=== PATIENT | female | born 1960 | race Caucasian/White ===

== ENCOUNTER 2016-07-06 14:33 | Emergency (ER) | payer MEDICARE, OTHER ==
[~2016-07-06] VITALS: Wt 60.5 kg
[~2016-07-06 14:33] MED LIST: ASPI-650 PO; CALC667C PO; CARV12.579 PO; DULO30CA47 PO; FOLI-49 PO; FOLI0.8T23 PO; GABA100C14 PO; HYDR-3504 PO; HYDR200T5 PO; IBUP-1542 PO; OMEP20CA16 PO; PRED-253 PO; SIMV20TA PO
--- NOTE | 2016-07-06 17:57 | ERA ---
ER Documentation Chief Complaint Date/Time DATE: 07/06/16 TIME: 17:57 Chief Complaint Abdominal pain HPI The patient is a 55-year-old female, presenting to the ER because of diffuse abdominal pain for 1 day. She denies similar symptoms previously, the pain is 10/10, worse with constipation. He complains of nausea and vomiting 2 today mostly mucous. She denies fever, chills, neck pain, chest pain, dyspnea. She does not smoke or drink Past medical history: Hypertension, dyslipidemia, chronic kidney disease, systemic lupus erythematosus Past surgical history: Left upper extremity AV fistula, appendectomy. He had a colonoscopy a few months ago and that was unremarkable ROS All systems reviewed and are negative except as per history of present illness. Medications Home Meds Active Scripts Polyethylene Glycol* (Miralax*) 17 Gm Powd.pack, 17 GM PO DAILY, #7 Prov:GUILLE MONTALVO MD 07/06/16 Tramadol HCl (Tramadol HCl) 50 Mg Tablet, 50 MG PO Q6 Y for PAIN, #20 TAB Prov:GUILLE MONTALVO MD 07/06/16 Reported Medications Raloxifene Hcl* (Evista*) 60 Mg Tablet, 60 MG PO DAILY, TAB 07/06/16 Ranitidine Hcl* (Ranitidine Hcl*) 300 Mg Tablet, 300 MG PO HS, #30 TAB 07/06/16 Carvedilol* (Carvedilol*) 25 Mg Tablet, 25 MG PO BID, #60 TAB 07/06/16 Gabapentin* (Gabapentin*) 300 Mg Capsule, 300 MG PO QHS, #60 CAP 07/06/16 Simvastatin* (Zocor*) 20 Mg Tablet, 20 MG PO QHS, #30 TAB 07/06/16 Calcium Acetate* (Calcium Acetate*) 667 Mg Capsule, 667 MG PO WITH MEALS, #90 CAP 07/06/16 Folic Acid* (Folic Acid*) 1 Mg Tablet, 1 MG PO DAILY, TAB 07/06/16 Duloxetine Hcl* (Duloxetine Hcl*) 30 Mg Capsule.dr, 30 MG PO BID, #30 CAP 07/06/16 Aspirin* (Aspirin* EC) 81 Mg Tablet.dr, 81 MG PO DAILY, TAB 07/06/16 Omeprazole* (Omeprazole*) 20 Mg Capsule.dr, 20 MG PO BID, #60 CAP 07/06/16 Prednisone* (Prednisone*) 5 Mg Tab, 5 MG PO DAILY, TAB 07/06/16 Multivit/Ca Carb/B Cmplx/Fa* (Teodora-Sarah*) 1 Tab Tab, 1 TAB PO DAILY, TAB 07/06/16 Hydroxychloroquine Sulfate* (Hydroxychloroquine Sulfate*) 200 Mg Tablet, 300 MG PO DAILY, TAB 07/06/16 Hydrocodone/Acetaminophen (Olga 10-325 Tablet) 1 Each Tablet, 2 TAB PO QID Y for PAIN, TAB 07/06/16 Discontinued Reported Medications Calcium Acetate* (Calcium Acetate*) 667 Mg Capsule, 667 MG PO TID 08/08/15 Ibuprofen* (Ibuprofen*) 600 Mg Tablet, 600 MG PO BID Y for PAIN, #60 08/08/15 Omeprazole* (Omeprazole*) 20 Mg Capsule.dr, 20 MG PO BID 08/08/15 Hydrocodone Bit-Acetaminophen (Hydrocodone-APAP) 10-325MG Tablet, 1 TAB PO Q6 Y for PAIN 08/08/15 Duloxetine Hcl* (Duloxetine Hcl*) 30 Mg Capsule.dr, 30 MG PO DAILY, #30 CAP 08/07/15 Carvedilol* (Carvedilol*) 12.5 Mg Tablet, 12.5 MG PO BID, #60 TAB 08/07/15 Simvastatin* (Zocor*) 20 Mg Tablet, 20 MG PO QHS, #30 TAB 08/07/15 Hydroxychloroquine Sulfate* (Plaquenil*) 200 Mg Tab, 250 MG PO DAILY, TAB 08/07/15 Gabapentin* (Gabapentin*) 100 Mg Capsule, 200 MG PO TID, #180 CAP 08/07/15 Folic Acid/Vitamin B Comp W-C* (Nephro-Sarah Tablet*) 0.8 Mg Tablet, 0.8 MG PO DAILY 05/17/11 Folic Acid* (Folic Acid*) 1 Mg Tablet, 2 MG PO DAILY 05/17/11 Aspirin (Aspirin) 81 Mg Tablet, 81 MG PO DAILY 05/17/11 Prednisone (Prednisone) 5 Mg Tablet, 5 MG PO DAILY 05/17/11 Allergies Allergies: Coded Allergies: No Known Allergy (Unverified , 07/06/16) PMhx/Soc History of Surgery: Yes (FISTULA LEFT ARM, APPY) Anesthesia Reaction: No Hx Neurological Disorder: No Hx Respiratory Disorders: No Hx Cardiac Disorders: Yes (HTN, HIGH CHOL) Hx Psychiatric Problems: No Hx Miscellaneous Medical Probl: No Hx Alcohol Use: No Hx Substance Use: No Hx Tobacco Use: Yes (4 CIGS /DAY) Physical Exam Vitals Vital Signs Date Time Temp Pulse Resp B/P Pulse Ox O2 Delivery O2 Flow Rate FiO2 07/06/16 20:00 95 25 144/70 95 Room Air 07/06/16 14:36 98.8 73 20 101/52 98 Physical Exam Const: No acute distress. Head: Atraumatic. Eyes: Normal Conjunctiva. ENT: Normal External Ears, Nose and Mouth. Neck: Full range of motion. No meningismus. Resp: Clear to auscultation bilaterally. Cardio: Regular rate and rhythm, no murmurs. Abd: Soft, non distended, normal bowel sounds, diffuse and vague abdominal tenderness, no rigidity, rebound, CVA tenderness Skin: No petechiae or rashes. Back: No midline or flank tenderness. Ext: No cyanosis, or edema. Neur: Awake and alert. No focal deficit Psych: Normal Mood and Affect. Result Diagram: 07/06/16182907/06/161829 Results 24 hrs Laboratory Tests Test 07/06/16 18:30 07/06/16 19:40 Alanine Aminotransferase (ALT/SGPT) 16IU/L Albumin 3.6g/dl Albumin/Globulin Ratio 1.09 Alkaline Phosphatase 55IU/L Anion Gap 21 Aspartate Amino Transf (AST/SGOT) 26IU/L Basophils # 0.010^3/ul Basophils % 0.3% Blood Morphology Comment Blood Urea Nitrogen 32mg/dl Calcium Level 9.9mg/dl Carbon Dioxide Level 28mmol/L Chloride Level 89mmol/L Creatinine 6.84mg/dl Direct Bilirubin 0.00mg/dl Eosinophils # 0.010^3/ul Eosinophils % 0.0% Globulin 3.30g/dl Glucose Level 93mg/dl Hematocrit 36.1% Hemoglobin 12.0g/dl Indirect Bilirubin 0.4mg/dl Lipase 34U/L Lymphocytes # 0.810^3/ul Lymphocytes % 8.3% Mean Corpuscular Hemoglobin 34.4pg Mean Corpuscular Hemoglobin Concent 33.2g/dl Mean Corpuscular Volume 103.7fl Mean Platelet Volume 8.8fl Monocytes # 1.010^3/ul Monocytes % 10.4% Neutrophils # 7.510^3/ul Neutrophils % 81.0% Nucleated Red Blood Cells # 0.010^3/ul Nucleated Red Blood Cells % 0.0/100WBC Platelet Count 9210^3/UL Potassium Level 4.1mmol/L Red Blood Count 3.4810^6/ul Red Cell Distribution Width 14.7% Sodium Level 134mmol/L Total Bilirubin 0.4mg/dl Total Protein 6.9g/dl White Blood Count 9.210^3/ul Bedside Urine Blood Trace-intact Bedside Urine Glucose (UA) Negative Bedside Urine Ketones (LAB) Negative Bedside Urine Leukocyte Esterase (L Negative Bedside Urine Nitrite (LAB) Negative Bedside Urine Protein (LAB) 2+ Bedside Urine pH (LAB) 8.5 Current Medications Medications (Trade) Dose Ordered Sig/Tereza Route PRN Reason Start Time Stop Time Status Last Admin Dose Admin Morphine Sulfate (morphine) 2 mg ONCE STAT IV 07/06/16 18:09 07/06/16 18:11 DC 07/06/16 19:11 Ondansetron HCl (Zofran Inj) 4 mg ONCE STAT IV 07/06/16 18:09 07/06/16 18:11 DC 07/06/16 19:11 Morphine Sulfate (morphine) 2 mg ONCE ONCE IV 07/06/16 20:00 07/06/16 20:01 DC 07/06/16 20:01 Bisacodyl (Dulcolax Supp) 10 mg ONCE ONCE IA 07/06/16 20:00 07/06/16 20:04 DC 07/06/16 20:13 Sodium Biphosphate/ Sodium Phosphate (Fleet Enema) 133 ml ONCE ONCE IA 07/06/16 20:00 07/06/16 20:04 DC 07/06/16 20:13 Procedures/[place] [id number] Radiology Main Line: [phone] DIAGNOSTIC IMAGING REPORT Patient: GENI MUELLER : 1960 Age: 55 Sex: F MR #: [id number] DOS: 07/06/16 1808 Ordering MD: GUILLE MONTALVO MD Location: E/R Room/Bed: PROCEDURE: CT abdomen and pelvis without IV contrast. CLINICAL INDICATION: Abdominal pain TECHNIQUE: CT scan of the abdomen and pelvis without contrast was performed on the [employer] volumetric [address] scanner. The patient was scanned without intravenous contrast. Coronal and sagittal reformatted images were obtained from the axial source images. The CTDI vol is 9.58 mGy and the DLP is 501.63 mGy -cm. COMPARISON: None. FINDINGS: CT abdomen: Mild atelectasis in the lingula is seen. The remaining lung bases are clear. The heart size is mildly enlarged and is without pericardial thickening or effusion. The liver is normal in size and density and is without focal mass or intrahepatic biliary dilatation. A simple cyst is seen in the left hepatic lobe measuring 10 mm in size. An ill-defined low density lesion is seen in the anterior aspect of the spleen measuring 10 mm. The spleen is normal in size and remainder of the spleen is homogeneous in density. The stomach is grossly unremarkable. The pancreas as visualized is normal. The gallbladder and biliary tree are unremarkable and there is no evidence for common bile duct dilatation. The adrenal glands are symmetric and normal. The [place] kidneys are in stage with bilateral renal cysts. No renal calculus or obstructive uropathy or mass lesion is seen. The aorta is of normal in caliber with atherosclerotic calcifications. There is no retroperitoneal lymphadenopathy. The vickey hepatis region is clear. Sigmoid diverticulosis is seen without evidence of diverticulitis. Irregular bowel wall thickening is seen distal descending colon with stranding in the adjacent mesentery. High-density material is seen within the adjacent mesenteric stranding. The small and remainder of the large bowel and mesentery , as visualized, are otherwise unremarkable. CT pelvis: The pelvic organs are normal. The pelvic sidewalls and inguinal regions are clear. No pelvic mass, lymphadenopathy, or free fluid is seen. No acute inflammation is seen. The urinary bladder is within normal limits. The surrounding osseous structures are unremarkable. No osteolytic or osteoblastic lesion is detected. Diffuse osteopenia is seen. IMPRESSION: 1. Irregular wall thickening of the distal descending colon with stranding in the adjacent mesentery, the findings of which are worrisome for a colon cancer. The possibility of colitis cannot be completely excluded. Correlation with colonoscopy is suggested. 2. Small nonspecific low density lesion in the spleen. In the setting of irregular wall thickening of the distal descending colon, the possibility of a splenic metastasis cannot be excluded. 3. Simple hepatic cyst. 4. Sigmoid diverticulosis. RPTAT: HPNM Results were discussed with Guille Montalvo at 07/06/2016 7:20:43 PM Sd Brown, Physician Date Time Electronically viewed and signed by Sd Brown Physician on 07/06/2016 19 :22 / CC: GUILLE MONTALVO MD MEDICAL MAKING DECISION: The patient is a 55-year-old female, presenting to the ER because of abdominal pain of unclear etiology. He was treated with morphine 2 mg IV 2 for pain, Zofran 4 mg IV 2 for nausea, Dulcolax suppository and Fleet enema with good response. The differential diagnoses considered include but are not limited to GI malignancy, cholelithiasis, cholecystitis, cystitis , pancreatitis, hepatitis, gastritis, peptic ulcer disease, gastric ulcer, appendicitis, diverticulitis, cholangitis, choledocholithiasis, partial small bowel obstruction. Departure Diagnosis: Primary Impression: Abdominal pain Additional Impression: Constipation Condition: Good Comments She was discharged with MiraLAX and Ultram and advised to follow-up with a equipment maintenance tech to rule out colon cancer immediately I discussed the findings with the patient. I advised the patient to follow-up with the primary physician in about 1-2 days, sooner if needed and return if any concern. GUILLE MONTALVO MD Jul 06, 2016 17:57
[2016-07-06] MEDS ORDERED: morphine 2 MG INJ IV STA (18:09)
[2016-07-06] MEDS ORDERED: ONDANSETRON 4 MG INJ IV STA (18:09)
--- NOTE | 2016-07-06 19:23 | RADRPT ---
PROCEDURE: CT abdomen and pelvis without IV contrast. CLINICAL INDICATION: Abdominal pain TECHNIQUE: CT scan of the abdomen and pelvis without contrast was performed on the [employer] volumetric [address] scanner. The patient was scanned without intravenous contrast. Coronal and sagittal refo rmatted images were obtained from the axial source images. The CTDI vol is 9.58 mGy and the DLP is 5 01.63 mGy-cm. COMPARISON: None. FINDINGS: CT abdomen: Mild atelectasis in the lingula is seen. The remaining lung bases are clear. The heart size is mil dly enlarged and is without pericardial thickening or effusion. The liver is normal in size and density and is without focal mass or intrahepatic biliary dilatation . A simple cyst is seen in the left hepatic lobe measuring 10 mm in size. An ill-defined low densit y lesion is seen in the anterior aspect of the spleen measuring 10 mm. The spleen is normal in size and remainder of the spleen is homogeneous in density. The stomach is grossly unremarkable. The pa ncreas as visualized is normal. The gallbladder and biliary tree are unremarkable and there is no e vidence for common bile duct dilatation. The adrenal glands are symmetric and normal. The [place] k idneys are in stage with bilateral renal cysts. No renal calculus or obstructive uropathy or mass lesion is seen. The aorta is of normal in caliber with atherosclerotic calcifications. There is no retroperitoneal lymphadenopathy. The vickey hepatis region is clear. Sigmoid diverticulosis is seen without evidenc e of diverticulitis. Irregular bowel wall thickening is seen distal descending colon with stranding in the adjacent mesentery. High-density material is seen within the adjacent mesenteric stranding. The small and remainder of the large bowel and mesentery, as visualized, are otherwise unremarkabl e. CT pelvis: The pelvic organs are normal. The pelvic sidewalls and inguinal regions are clear. No pelvic mass, lymphadenopathy, or free fluid is seen. No acute inflammation is seen. The urinary bladder is wit hin normal limits. The surrounding osseous structures are unremarkable. No osteolytic or osteoblastic lesion is detect ed. Diffuse osteopenia is seen. IMPRESSION: 1. Irregular wall thickening of the distal descending colon with stranding in the adjacent mesenter y, the findings of which are worrisome for a colon cancer. The possibility of colitis cannot be com pletely excluded. Correlation with colonoscopy is suggested. 2. Small nonspecific low density lesion in the spleen. In the setting of irregular wall thickening of the distal descending colon, the possibility of a splenic metastasis cannot be excluded. 3. Simple hepatic cyst. 4. Sigmoid diverticulosis. RPTAT: HPNM Results were discussed with Guille Shaw at 07/06/2016 7:20:43 PM Physician Mary Date Time Electronically viewed and signed by Sd Brown Physician on 07/06/2016 19:22 /
[2016-07-06 19:27] LABS: BASOPHILS % 0.3 % (0.0-2.0); HEMATOCRIT 36.1 % (37.0-47.0); LYMPHOCYTES # 0.8 10^3/ul (0.8-2.9); LYMPHOCYTES % 8.3 % (15.0-51.0); MEAN CORPUSCULAR HEMOGLOBIN 34.4 pg (29.0-33.0); MEAN CORPUSCULAR HGB CONC 33.2 g/dl (32.0-37.0); MEAN CORPUSCULAR VOLUME 103.7 fl (82.0-101.0); MEAN PLATELET VOLUME 8.8 fl (7.4-10.4); MONOCYTES % 10.4 % (0.0-11.0); NEUTROPHIL # 7.5 10^3/ul (1.6-7.5); PLATELET COUNT 92 10^3/UL (140-440); RED BLOOD COUNT 3.48 10^6/ul (4.20-5.40); RED CELL DISTRIBUTION WIDTH 14.7 % (11.5-14.5); UNCORRECTED WBC 9.2 10^3/ul (4.8-10.8); WHITE BLOOD COUNT 9.2 10^3/ul (4.8-10.8)
[2016-07-06 19:28] LABS: ALBUMIN 3.6 g/dl (3.3-4.9); CONDITION 1; LH ANALYZER COMMENTS 1
[2016-07-06 19:29] LABS: POTASSIUM 4.1 mmol/L (3.5-5.1)
[2016-07-06 19:30] LABS: CREATININE 6.84 mg/dl (0.44-1.00)
[2016-07-06 19:31] LABS: ALBUMIN/GLOBULIN RATIO 1.09; BILIRUBIN,INDIRECT 0.4 mg/dl (0-1.1); BILIRUBIN,TOTAL 0.4 mg/dl (0.2-1.3); CALCIUM 9.9 mg/dl (8.4-10.2); TOTAL PROTEIN 6.9 g/dl (6.1-8.1)
[2016-07-06] MEDS ORDERED: HYDR-902 PO (19:35)
[2016-07-06] MEDS ORDERED: NEPH PO (19:36)
[2016-07-06] MEDS ORDERED: HYDR200T39 PO (19:36)
[2016-07-06] MEDS ORDERED: PRED5 PO (19:37)
[2016-07-06] MEDS ORDERED: ASPI-664 PO (19:37)
[2016-07-06] MEDS ORDERED: OMEP20CA16 PO (19:37)
[2016-07-06] MEDS ORDERED: FOLI-49 PO (19:38)
[2016-07-06] MEDS ORDERED: DULO30CA47 PO (19:38)
[2016-07-06] MEDS ORDERED: CALC667C PO (19:39)
[2016-07-06 19:40] LABS: URINE BLOOD (Dip) POC Trace-intact (NEGATIVE)
[2016-07-06] MEDS ORDERED: GABA300C16 PO (19:40)
[2016-07-06] MEDS ORDERED: SIMV20TA PO (19:40)
[2016-07-06] MEDS ORDERED: CARV25TA79 PO (19:41)
[2016-07-06] MEDS ORDERED: RALO60TA12 PO (19:41)
[2016-07-06] MEDS ORDERED: RANI300T PO (19:41)
[2016-07-06] MEDS ORDERED: morphine 2 MG INJ IV ONE ×2 (20:00→21:30)
[2016-07-06] MEDS ORDERED: NA PHOSPHATE/BIPHOS 133 ML ENEMA PR ONE (20:00)
[2016-07-06] MEDS ORDERED: BISACODYL 10 MG SUPP PR ONE (20:00)
[2016-07-06] MEDS ORDERED: TRAM50TA2 PO (20:11)
[2016-07-06] MEDS ORDERED: POLY17PO6 PO (20:11)
--- NOTE | 2016-07-06 21:27 | RADRPT ---
PROCEDURE: XR Chest. CLINICAL INDICATION: Cough. TECHNIQUE: Single frontal view of the chest was obtained COMPARISON: 08/12/2015. FINDINGS: Cardiomegaly. Mild left lung base atelectasis versus airspace disease. Right lung is clear. There is no pleural effusion or pneumothorax. New total right shoulder arthroplasty IMPRESSION: Mild left lung base atelectasis versus airspace disease. RPTAT: [facility]U Physician Luis Date Time Electronically viewed and signed by Kane Garcia Physician on 07/06/2016 21:27 RS/
[2016-07-06 21:31] VITALS: BP 123/67; PULSE 84; RESP 16
== END 2016-07-06 21:38 | disposition home or self-care (01) ==
LOC: E/R 14:33
DX: R10.84 Generalized abdominal pain (principal); K59.00 Constipation, unspecified; R11.2 Nausea with vomiting, unspecified; I12.9 Hypertensive chronic kidney disease with stage 1 through stage 4 chronic kidney disease, or unspecified chronic kidney disease; N18.9 Chronic kidney disease, unspecified; F17.210 Nicotine dependence, cigarettes, uncomplicated; R40.2142 Coma scale, eyes open, spontaneous, at arrival to emergency department; R40.2252 Coma scale, best verbal response, oriented, at arrival to emergency department; R40.2362 Coma scale, best motor response, obeys commands, at arrival to emergency department; Z79.82 Long term (current) use of aspirin; Z99.2 Dependence on renal dialysis
CPT/HCPCS: 36415; 71010; 74176; 80053; 81003; 83690; 85025; 96374; 96375; 96376; 99285; J2270; J2405

== ENCOUNTER 2016-07-08 11:34 | Inpatient (IN) | payer MEDICARE, OTHER ==
[~2016-07-08] VITALS: Ht 143.1 cm; Wt 60.0 kg
[~2016-07-08 11:34] MED LIST changes: -ASPI-650 PO; +ASPI-664 PO; -CARV12.579 PO; +CARV25TA79 PO; -FOLI0.8T23 PO; -GABA100C14 PO; +GABA300C16 PO; -HYDR-3504 PO; +HYDR-902 PO; +HYDR200T39 PO; -HYDR200T5 PO; -IBUP-1542 PO; +NEPH PO; +POLY17PO6 PO; -PRED-253 PO; +PRED5 PO; +RALO60TA12 PO; +RANI300T PO; +TRAM50TA2 PO
[2016-07-08] MEDS ORDERED: ONDANSETRON 4 MG INJ IV STA (12:35)
[2016-07-08] MEDS ORDERED: SOD CHLORIDE 0.9% 1,000 ML IV STA (12:35)
[2016-07-08] MEDS ORDERED: HYDROmorphONE 1 MG/ML SYG IV STA ×3 (12:35→17:27)
[2016-07-08 13:05] LABS: BASOPHILS % 0.1 % (0.0-2.0); EOSINOPHILS % 0.2 % (0.0-7.0); HEMOGLOBIN 10.8 g/dl (12.0-16.0); LYMPHOCYTES # 0.6 10^3/ul (0.8-2.9); LYMPHOCYTES % 5.3 % (15.0-51.0); MEAN CORPUSCULAR HEMOGLOBIN 34.8 pg (29.0-33.0); MEAN CORPUSCULAR HGB CONC 33.8 g/dl (32.0-37.0); MEAN CORPUSCULAR VOLUME 103.2 fl (82.0-101.0); MEAN PLATELET VOLUME 11.8 fl (7.4-10.4); MONOCYTE # 1.1 10^3/ul (0.3-0.9); MONOCYTES % 10.4 % (0.0-11.0); NEUTROPHILS % 83.3 % (39.0-77.0); PLATELET COUNT 105 10^3/UL (140-415); RED CELL DISTRIBUTION WIDTH 13.8 % (11.5-14.5); WHITE BLOOD COUNT 10.8 10^3/ul (4.8-10.8)
[2016-07-08 13:32] LABS: ALBUMIN 3.6 g/dl (3.3-4.9); POTASSIUM 4.7 mmol/L (3.5-5.1)
[2016-07-08 13:34] LABS: BILIRUBIN,INDIRECT 0.1 mg/dl (0-1.1); BILIRUBIN,TOTAL 0.1 mg/dl (0.2-1.3); CREATININE 9.18 mg/dl (0.44-1.00)
[2016-07-08 13:35] LABS: ALBUMIN/GLOBULIN RATIO 1.02; TOTAL PROTEIN 7.1 g/dl (6.1-8.1)
[2016-07-08 13:36] LABS: CALCIUM 9.1 mg/dl (8.4-10.2)
[2016-07-08] MEDS ORDERED: IOHEXOL 300MG/ML 150 ML BTL ONE (14:05)
[2016-07-08] MEDS ORDERED: SOD CHLORIDE 0.9% 100 ML ONE (14:05)
--- NOTE | 2016-07-08 15:50 | RADRPT ---
PROCEDURE: CT Abdomen and Pelvis with contrast. CLINICAL INDICATION: Left flank pain TECHNIQUE: CT of the abdomen and pelvis was performed on a multi-detector scanner following the un complicated IV administration of 100 cc of Omnipaque 300. Coronal and sagittal images were reformat esperanza from the axial data set. One or more of the following dose reduction techniques were used: auto mated exposure control, adjustment of the mA and/or kV according to patient size, use of iterative reconstruction technique. CTDI = 9.17 mGy. DLP = 503.34 mGy-cm. COMPARISON: CT, 07/06/2016 FINDINGS: CT abdomen: The lung bases are clear. There is stable mild to moderate cardiomegaly, without pericardial effusi on. Coronary arterial calcifications are noted. Liver demonstrates a benign cyst. Gallbladder is distended. No radiodense gallstone or pericholecystic inflammation is identified. Small hypoenhanc ing foci are again noted in the spleen, statistically most likely to be benign hemangiomas. Biliary tree, pancreas and adrenal glands are unremarkable. Bilateral kidneys are atrophic, and demonstrat e benign cysts. No urolithiasis or obstructive uropathy is identified. Small hiatal hernia is note d. The stomach is otherwise grossly unremarkable. There is no abdominal aortic aneurysm or dissection. Aortic vascular calcifications are present. T here is no retroperitoneal lymphadenopathy. The vickey hepatis region is clear. CT pelvis: Again noted is significant wall thickening and inflammation involving a relatively short segment of distal descending colon - findings have increased in severity when compared to the prior CT. Also a gain noted are unusual branching hyperdensities within the adjacent colonic mesentery - these are of uncertain etiology and may possibly represent thrombosed mesenteric vessels. Overall, findings are concerning for focal colonic ischemia. No evidence of pneumatosis or portal venous gas is identifi ed at this time. There is no evidence of bowel obstruction, perforation or abscess. Colonic divert iculosis is seen, without gross evidence for diverticulitis. There is no appendicitis. Urinary tre dder, uterus and adnexa are grossly unremarkable. No pelvic mass, free fluid or lymphadenopathy is identified. The surrounding osseous structures are remarkable for degenerative spondylosis of the spine. No ost eolytic or osteoblastic lesion is detected. IMPRESSION: 1. Findings concerning for focal colonic ischemia involving the distal descending colon and possibl e thrombosis of adjacent mesenteric vessels, as discussed above. Pericolonic inflammation has incre ased in severity when compared to the prior CT. Underlying neoplasm is possible, though thought to be less likely. No evidence of bowel perforation or pneumatosis is seen at this time. 2. There is stable moderate cardiomegaly. Coronary arterial and aortoiliac atherosclerotic calcifi cations are present. 3. Colonic diverticulosis is seen, without gross evidence to indicate diverticulitis. 4. Bilateral kidneys are atrophic. No urolithiasis or obstructive uropathy is identified. A call report was made to Cristina Machado on 07/08/2016 3:42:18 PM. RPTAT: QQ .Khadar Cardenas MD, MD Date Time Electronically viewed and signed by .Khadar Cardenas MD, on 07/08/2016 15:50 .R/
[2016-07-08] MEDS ORDERED: ACETAMINOPHEN 325 MG TAB PO PRN (16:30)
[2016-07-08] MEDS ORDERED: DIPHENHYDRAMINE 50 MG INJ IV ONE (16:30)
[2016-07-08] MEDS ORDERED: SOD CHLORIDE 0.9% 1,000 ML IV SCH (16:30)
[2016-07-08] MEDS ORDERED: ONDANSETRON 4 MG INJ IV PRN ×2 (16:30→17:00)
--- NOTE | 2016-07-08 16:40 | ERA ---
ER Documentation Chief Complaint Date/Time DATE: 07/08/16 TIME: 16:37 Chief Complaint Complains of abdominal pain x 3 days HPI This a 55-year-old female who was seen here 2 days ago for left lower quadrant pain and had a CT scan that showed some distal descending colon wall thickening with some strandy mesentery. She was sent home. The patient was seen by her primary care doctor today for increasing pain. No vomiting diarrhea fever. Patient has significant pain in the left lower quadrant described as sharp without radiation. No hematuria no dysuria. Patient was sent for reevaluation and probable admission for diverticulitis that she had diverticulosis on CT scan. Patient underwent colonoscopy in February 2016 demonstrating only diverticulosis ROS All systems reviewed and are negative except as per history of present illness. Medications Home Meds Active Scripts Polyethylene Glycol* (Miralax*) 17 Gm Powd.pack, 17 GM PO DAILY, #7 Prov:YFN MONTALVO MD 07/06/16 Tramadol HCl (Tramadol HCl) 50 Mg Tablet, 50 MG PO Q6 Y for PAIN, #20 TAB Prov:YFN MONTALVO MD 07/06/16 Reported Medications Raloxifene Hcl* (Evista*) 60 Mg Tablet, 60 MG PO DAILY, TAB 07/06/16 Ranitidine Hcl* (Ranitidine Hcl*) 300 Mg Tablet, 300 MG PO HS, #30 TAB 07/06/16 Carvedilol* (Carvedilol*) 25 Mg Tablet, 25 MG PO BID, #60 TAB 07/06/16 Gabapentin* (Gabapentin*) 300 Mg Capsule, 300 MG PO QHS, #60 CAP 07/06/16 Simvastatin* (Zocor*) 20 Mg Tablet, 20 MG PO QHS, #30 TAB 07/06/16 Calcium Acetate* (Calcium Acetate*) 667 Mg Capsule, 667 MG PO WITH MEALS, #90 CAP 07/06/16 Folic Acid* (Folic Acid*) 1 Mg Tablet, 1 MG PO DAILY, TAB 07/06/16 Duloxetine Hcl* (Duloxetine Hcl*) 30 Mg Capsule.dr, 30 MG PO BID, #30 CAP 07/06/16 Aspirin* (Aspirin* EC) 81 Mg Tablet.dr, 81 MG PO DAILY, TAB 07/06/16 Omeprazole* (Omeprazole*) 20 Mg Capsule.dr, 20 MG PO BID, #60 CAP 07/06/16 Prednisone* (Prednisone*) 5 Mg Tab, 5 MG PO DAILY, TAB 07/06/16 Multivit/Ca Carb/B Cmplx/Fa* (Teodora-Sarah*) 1 Tab Tab, 1 TAB PO DAILY, TAB 07/06/16 Hydroxychloroquine Sulfate* (Hydroxychloroquine Sulfate*) 200 Mg Tablet, 300 MG PO DAILY, TAB 07/06/16 Hydrocodone/Acetaminophen ([place] 10-325 Tablet) 1 Each Tablet, 2 TAB PO QID Y for PAIN, TAB 07/06/16 Discontinued Reported Medications Calcium Acetate* (Calcium Acetate*) 667 Mg Capsule, 667 MG PO TID 08/08/15 Ibuprofen* (Ibuprofen*) 600 Mg Tablet, 600 MG PO BID Y for PAIN, #60 08/08/15 Omeprazole* (Omeprazole*) 20 Mg Capsule.dr, 20 MG PO BID 08/08/15 Hydrocodone Bit-Acetaminophen (Hydrocodone-APAP) 10-325MG Tablet, 1 TAB PO Q6 Y for PAIN 08/08/15 Duloxetine Hcl* (Duloxetine Hcl*) 30 Mg Capsule.dr, 30 MG PO DAILY, #30 CAP 08/07/15 Carvedilol* (Carvedilol*) 12.5 Mg Tablet, 12.5 MG PO BID, #60 TAB 08/07/15 Simvastatin* (Zocor*) 20 Mg Tablet, 20 MG PO QHS, #30 TAB 08/07/15 Hydroxychloroquine Sulfate* (Plaquenil*) 200 Mg Tab, 250 MG PO DAILY, TAB 08/07/15 Gabapentin* (Gabapentin*) 100 Mg Capsule, 200 MG PO TID, #180 CAP 08/07/15 Folic Acid/Vitamin B Comp W-C* (Nephro-Sarah Tablet*) 0.8 Mg Tablet, 0.8 MG PO DAILY 05/17/11 Folic Acid* (Folic Acid*) 1 Mg Tablet, 2 MG PO DAILY 05/17/11 Aspirin (Aspirin) 81 Mg Tablet, 81 MG PO DAILY 05/17/11 Prednisone (Prednisone) 5 Mg Tablet, 5 MG PO DAILY 05/17/11 Allergies Allergies: Coded Allergies: No Known Allergy (Unverified , 07/08/16) PMhx/Soc History of Surgery: Yes (FISTULA LEFT ARM, APPY) Anesthesia Reaction: No Hx Neurological Disorder: No Hx Respiratory Disorders: No Hx Cardiac Disorders: Yes (HTN, HIGH CHOL) Hx Psychiatric Problems: No Hx Miscellaneous Medical Probl: Yes (renal failure dialysis (M,W,F)) Hx Alcohol Use: No Hx Substance Use: No Hx Tobacco Use: No (quit 15 years ago) Smoking Status: Former smoker FmHx Family History: No coronary disease Physical Exam Vitals Vital Signs Date Time Temp Pulse Resp B/P Pulse Ox O2 Delivery O2 Flow Rate FiO2 07/08/16 14:34 98.2 67 22 93/44 Room Air 07/08/16 12:21 97.9 58 20 84/43 94 Room Air 07/08/16 11:36 61 20 84/54 97 Physical Exam Const: Well-developed, well-nourished Head: Atraumatic, normocephalic Eyes: Normal Conjunctiva, PERRLA, EOMI, normal sclera, no nystagmus ENT: Normal External Ears, Nose and Mouth, moist mucus membranes. Neck: Full range of motion. No meningismus, no lymphadenopathy. Resp: Clear to auscultation bilaterally, no wheezing, rhonchi, rales Cardio: Regular rate and rhythm, no murmurs, S1 S2 present Abd: Soft, moderate to severe left lower quadrant tenderness, non distended. Normal bowel sounds, no guarding or rebound, no pulsitile abdominal masses or bruits Skin: No petechiae or rashes, no ecchymosis , no maculopapular rash Back: No midline or flank tenderness Ext: No cyanosis, or edema, FROM x 4, normal inspection, neurovascularly intact x 4 Neur: Awake and alert, STR 5/5 x 4, sensation intact x 4, no focal findings, cerebellum intact Psych: Normal Mood and Affect Result Diagram: 07/08/16 1245 07/08/16 1245 Results 24 hrs Laboratory Tests Test 07/08/16 12:45 Alanine Aminotransferase (ALT/SGPT) 17IU/L Albumin 3.6g/dl Albumin/Globulin Ratio 1.02 Alkaline Phosphatase 62IU/L Anion Gap 24 Aspartate Amino Transf (AST/SGOT) 37IU/L Basophils # 0.010^3/ul Basophils % 0.1% Blood Urea Nitrogen 54mg/dl Calcium Level 9.1mg/dl Carbon Dioxide Level 24mmol/L Chloride Level 88mmol/L Creatinine 9.18mg/dl Direct Bilirubin 0.00mg/dl Eosinophils # 0.010^3/ul Eosinophils % 0.2% Globulin 3.50g/dl Glucose Level 79mg/dl Hematocrit 32.0% Hemoglobin 10.8g/dl Indirect Bilirubin 0.1mg/dl Lymphocytes # 0.610^3/ul Lymphocytes % 5.3% Mean Corpuscular Hemoglobin 34.8pg Mean Corpuscular Hemoglobin Concent 33.8g/dl Mean Corpuscular Volume 103.2fl Mean Platelet Volume 11.8fl Monocytes # 1.110^3/ul Monocytes % 10.4% Neutrophils # 9.010^3/ul Neutrophils % 83.3% Nucleated Red Blood Cells # 0.010^3/ul Nucleated Red Blood Cells % 0.0/100WBC Platelet Count 64847^3/UL Potassium Level 4.7mmol/L Red Blood Count 3.1010^6/ul Red Cell Distribution Width 13.8% Sodium Level 131mmol/L Total Bilirubin 0.1mg/dl Total Protein 7.1g/dl White Blood Count 10.810^3/ul Current Medications Medications (Trade) Dose Ordered Sig/Tereza Route PRN Reason Start Time Stop Time Status Last Admin Dose Admin Sodium Chloride (NS) 1,000 ml @ 1,000 mls/hr Q1H STAT IV 07/08/16 12:35 07/08/16 13:34 DC 07/08/16 12:48 Hydromorphone HCl (Dilaudid) 1 mg ONCE STAT IV 07/08/16 12:35 07/08/16 12:36 DC 07/08/16 12:48 Ondansetron HCl (Zofran Inj) 4 mg ONCE STAT IV 07/08/16 12:35 07/08/16 12:36 DC 07/08/16 12:48 IV Flush 10 ml 10 ml STK-MED ONCE .ROUTE 07/08/16 14:05 07/08/16 14:06 DC Sodium Chloride (NS) 100 ml @ ud STK-MED ONCE .ROUTE 07/08/16 14:05 07/08/16 14:06 DC Iohexol (Omnipaque 300mg/ ml) 150 ml STK-MED ONCE .ROUTE 07/08/16 14:05 2/9/17 14:06 DC Diphenhydramine HCl (Benadryl) 25 mg ONCE ONCE IV 07/08/16 16:30 07/08/16 16:31 DC 07/08/16 16:25 Hydromorphone HCl (Dilaudid) 1 mg ONCE STAT IV 07/08/16 16:10 07/08/16 16:11 DC 07/08/16 16:25 Procedures/MDM PROCEDURE: CT Abdomen and Pelvis with contrast. CLINICAL INDICATION: Left flank pain TECHNIQUE: CT of the abdomen and pelvis was performed on a multi-detector scanner following the uncomplicated IV administration of 100 cc of Omnipaque 300. Coronal and sagittal images were reformatted from the axial data set. One or more of the following dose reduction techniques were used: automated exposure control, adjustment of the mA and/or kV according to patient size, use of iterative reconstruction technique. CTDI = 9.17 mGy. DLP = 503.34 mGy- cm. COMPARISON: CT, 07/06/2016 FINDINGS: CT abdomen: The lung bases are clear. There is stable mild to moderate cardiomegaly, without pericardial effusion. Coronary arterial calcifications are noted. Liver demonstrates a benign cyst. Gallbladder is distended. No radiodense gallstone or pericholecystic inflammation is identified. Small hypoenhancing foci are again noted in the spleen, statistically most likely to be benign hemangiomas. Biliary tree, pancreas and adrenal glands are unremarkable. Bilateral kidneys are atrophic, and demonstrate benign cysts. No urolithiasis or obstructive uropathy is identified. Small hiatal hernia is noted. The stomach is otherwise grossly unremarkable. There is no abdominal aortic aneurysm or dissection. Aortic vascular calcifications are present. There is no retroperitoneal lymphadenopathy. The vickey hepatis region is clear. CT pelvis: Again noted is significant wall thickening and inflammation involving a relatively short segment of distal descending colon - findings have increased in severity when compared to the prior CT. Also again noted are unusual branching hyperdensities within the adjacent colonic mesentery - these are of uncertain etiology and may possibly represent thrombosed mesenteric vessels. Overall, findings are concerning for focal colonic ischemia. No evidence of pneumatosis or portal venous gas is identified at this time. There is no evidence of bowel obstruction, perforation or abscess. Colonic diverticulosis is seen, without gross evidence for diverticulitis. There is no appendicitis. Urinary bladder, uterus and adnexa are grossly unremarkable. No pelvic mass, free fluid or lymphadenopathy is identified. The surrounding osseous structures are remarkable for degenerative spondylosis of the spine. No osteolytic or osteoblastic lesion is detected. IMPRESSION: 1. Findings concerning for focal colonic ischemia involving the distal descending colon and possible thrombosis of adjacent mesenteric vessels, as discussed above. Pericolonic inflammation has increased in severity when compared to the prior CT. Underlying neoplasm is possible, though thought to be less likely. No evidence of bowel perforation or pneumatosis is seen at this time. 2. There is stable moderate cardiomegaly. Coronary arterial and aortoiliac atherosclerotic calcifications are present. 3. Colonic diverticulosis is seen, without gross evidence to indicate diverticulitis. 4. Bilateral kidneys are atrophic. No urolithiasis or obstructive uropathy is identified. A call report was made to Cristina Machado on 07/08/2016 3:42:18 PM. RPTAT: QQ .Khadar Cardenas MD, MD Date Time Electronically viewed and signed by .Khadar Cardenas MD, MD on 07/08/2016 15: 50 .R/ CC: CRISTINA JOSEPH DO Patient likely has ischemic colitis in the segment of the distal descending colon. Will treat with heparin 5000 units subcu, Invanz 1 g IV per Spoke with GI Dr. brett [facility] general surgery Departure Diagnosis: Primary Impression: Ischemic colitis Condition: Stable CRISTINA JOSEPH DO Jul 08, 2016 16:40
[2016-07-08] MEDS ORDERED: BISACODYL (EC) 5 MG TAB PO PRN (17:00)
[2016-07-08] MEDS ORDERED: HEPARIN 5,000 UNIT/0.5 ML SYG SC ONE (17:00)
[2016-07-08] MEDS ORDERED: DOCUSATE SODIUM 100 MG CAP PO PRN (17:00)
[2016-07-08] MEDS ORDERED: VANCOMYCIN 750 MG in SOD CHLORIDE 0.9% 150 ML IVPB ONE (17:00)
[2016-07-08] MEDS ORDERED: morphine 2 MG INJ IV PRN (17:00)
[2016-07-08] MEDS ORDERED: ERTAPENEM SODIUM 1 GM in SOD CHLORIDE 0.9% 100 ML IVPB ONE (17:00)
[2016-07-08] MEDS ORDERED: NACL 0.9% 3 ML SYG IV SCH (17:00)
--- NOTE | 2016-07-08 17:29 | HP ---
DATE OF ADMISSION: 07/08/2016 REASON FOR ADMISSION: Abdominal pain. HISTORY OF PRESENT ILLNESS: This is a 55-year-old female with end-stage renal disease due to hypert ension and lupus, currently dialyzing every Tuesday, Tuesday, and Tuesday at the [facility]. She states that for the past week she has been gradually feeling poorly with poor p.o. intake and le thargy. Earlier this week after her Tuesday's dialysis, she noted some increasing abdominal pain, went to the [facility] ER where she was noted to have unremarkable laboratories, but a CT scan of the abdomen was done which showed some thickening of the wall of the left colon. She was given pain medications and discharged. Due to her persistent abdominal pain gradually increasing in severity, she therefore, saw me in the office today. She clearly looked ill, was anorectic with increasing left lower quadrant abdominal p ain, and therefore, was referred back to the emergency room for planned admission. In the ER today, she again, was afebrile. Blood pressure initially was 84/40 (she does run low). S he was not tachycardic. Her examination confirmed tenderness in the left lower quadrant, and therefore, a repeat CT scan of the abdomen was done. The Findings on the CAT scan that were concerning for focal colonic ischemia involving the distal de scending colon, with pericolonic inflammation increased in severity when compared to the CT of just 2 days earlier. It should be noted that she did see Dr. Levin in February 2016 and underwent an unremarkable colono scopy at that time. She is now being admitted because of the concern of colonic ischemia. Of note, her white count today is normal at 10.8, hematocrit is 32, and serum chemistries are notabl e for entirely normal liver function tests. PAST MEDICAL HISTORY: Please see full dictated problem list. ALLERGIES: NONE. HABITS: Tobacco: None. Alcohol: None. MEDICATIONS 1. Plaquenil 200 mg a day. 2. Omeprazole 20 mg a day. 3. Prednisone 5 mg a day. 4. Nephro-Sarah 1 daily. 5. Duloxetine 30 mg daily. 6. Aspirin 81 mg daily. 7. Gabapentin 300 mg at bedtime. 8. PhosLo 1 to 2 tabs t.i.d. with meals. 9. Carvedilol 25 mg p.o. b.i.d. REVIEW OF SYSTEMS: As per HPI. PHYSICAL EXAMINATION GENERAL: An ill-appearing woman in no acute distress. VITAL SIGNS: She was afebrile, blood pressure 100/50, heart rate 72 and regular, respirations are 1 2 and unlabored. SKIN: No rash. HEENT: Head normocephalic, atraumatic. Eyes, pupils are equal, round, reactive. Extraocular movem ents are full. Sclerae are anicteric. Pharynx, no lesions. NECK: JVP, is not distended. No adenopathy or thyromegaly. Carotids are 2+. BACK: No CVAT. LUNGS: Clear. HEART: S1, S2, with a II/ systolic murmur. ABDOMEN: Soft. She is quite tender in the left lower quadrant with rebound to deep palpation. The abdomen is soft and not rigid. EXTREMITIES: No cyanosis, clubbing or edema. Well-functioning AV fistula in the left upper extremi ty. LABORATORY DATA: Sodium 131, potassium 4.7, chloride 88, bicarbonate 24, BUN 54, creatinine 9.18, g lucose 79, calcium 9.1, total bilirubin 0.1, AST 37, ALT 17, alkaline phosphatase 62, total protein 7.1, albumin 3.6. White count 10.8; hemoglobin 10.8; hematocrit 32; platelet count 105,000, COMPUTED TOMOGRAPHY SCAN: Is as noted. PROBLEM LIST 1. Left lower quadrant abdominal pain consistent with focal colonic ischemia. 2. Status post normal colonoscopy in February 2016. 3. Mild thrombocytopenia, chronic. 4. End-stage renal disease, maintained on outpatient hemodialysis every Tuesday, Tuesday and . 5. Hypertension, currently well-controlled. 6. Depression, well-controlled on medication. 7. Lupus, maintained on low-dose prednisone and Plaquenil. 8. Hyperlipidemia. RECOMMENDATIONS 1. Admit to hospital. 2. GI consultation with Dr. Levin. 3. General surgery consultation, as well. 4. Broad-spectrum antibiotics. 5. Resume current medication. 6. Arrange for dialysis tomorrow, it is currently not urgent. 7. Further recommendations pending response to above. Dictated By: MARSHA LOPEZ MD, MM/ALEX Conf#: [id number] [facility]#: [id number]
[2016-07-08 17:53] LABS: INR 1.26; PROTIME 15.9 Sec (12.2-14.2); PT RATIO 1.2
[2016-07-08 17:54] LABS: PARTIAL THROMBOPLASTIN TIME 31.2 Sec (25.0-35.0)
[2016-07-08] MEDS: CALCIUM ACETATE 667 MG CAP PO SCH (18:00)
[2016-07-08 18:28] VITALS: TEMP 97.8
[2016-07-08 20:19] VITALS: BP 132/61; RESP 20
[2016-07-08] MEDS: DEXTROSE 5%-0.45% NACL 1,000 ML IV SCH (20:38)
[2016-07-08] MEDS: HYDROmorphONE 1 MG/ML SYG IV PRN (20:42)
[2016-07-08] MEDS ORDERED: NON-FORMULARY/PATIENT OWN MED (Omeprazole* 20 MG) PO SCH (21:00)
[2016-07-08] MEDS: PIPER-TAZO 2.25 GM (PMX) 50 ML IVPB SCH (21:55)
[2016-07-08] MEDS: DULOXETINE 30 MG CAP DR PO SCH (22:03)
[2016-07-08] MEDS: ATORVASTATIN 10 MG TAB PO SCH (22:03)
[2016-07-08] MEDS: GABAPENTIN 300 MG CAP PO SCH (22:03)
[2016-07-08 23:02] VITALS: Ht 143.1 cm; Wt 60.0 kg
[2016-07-09] VITALS (10 sets, daily range): BP systolic 94–130; BP diastolic 55–87; PULSE 62–72; RESP 18–19
[2016-07-09] MEDS: HYDROmorphONE 1 MG/ML SYG IV PRN ×3 (02:04→12:36)
[2016-07-09] MEDS ORDERED: SOD CHLORIDE 0.9% 100 ML ONE (02:07)
[2016-07-09] MEDS: ACETAMINOPHEN 325 MG TAB PO PRN ×2 (02:07→12:39)
[2016-07-09] MEDS ORDERED: IODIXANOL LOCM 100 ML BTL ONE (02:07)
[2016-07-09] MEDS: PANTOPRAZOLE 40 MG INJ IV SCH (05:39)
[2016-07-09] MEDS: PIPER-TAZO 2.25 GM (PMX) 50 ML IVPB SCH ×3 (05:39→22:02)
[2016-07-09] MEDS: DEXTROSE 5%-0.45% NACL 1,000 ML IV SCH ×2 (05:39→12:40)
[2016-07-09 06:18] LABS: ADD SCAN DIFF NO
[2016-07-09 06:33] LABS: ABNORMAL IP MESSAGE 1; BASOPHILS % 0.1 % (0.0-2.0); EOSINOPHILS % 0.2 % (0.0-7.0); HEMATOCRIT 29.8 % (37.0-47.0); HEMOGLOBIN 9.6 g/dl (12.0-16.0); LYMPHOCYTES # 0.5 10^3/ul (0.8-2.9); LYMPHOCYTES % 4.3 % (15.0-51.0); MEAN CORPUSCULAR HEMOGLOBIN 33.9 pg (29.0-33.0); MEAN CORPUSCULAR HGB CONC 32.2 g/dl (32.0-37.0); MEAN CORPUSCULAR VOLUME 105.3 fl (82.0-101.0); MEAN PLATELET VOLUME 11.4 fl (7.4-10.4); MONOCYTE # 1.5 10^3/ul (0.3-0.9); MONOCYTES % 13.9 % (0.0-11.0); NEUTROPHIL # 8.7 10^3/ul (1.6-7.5); NEUTROPHILS % 80.7 % (39.0-77.0); PLATELET COUNT 110 10^3/UL (140-415); RED BLOOD COUNT 2.83 10^6/ul (4.20-5.40); RED CELL DISTRIBUTION WIDTH 13.9 % (11.5-14.5); WHITE BLOOD COUNT 10.8 10^3/ul (4.8-10.8)
[2016-07-09 06:47] LABS: ALBUMIN 2.8 g/dl (3.3-4.9)
[2016-07-09 06:48] LABS: POTASSIUM 4.8 mmol/L (3.5-5.1)
[2016-07-09 06:50] LABS: ALBUMIN/GLOBULIN RATIO 0.96; CREATININE 10.08 mg/dl (0.44-1.00); TOTAL PROTEIN 5.7 g/dl (6.1-8.1)
--- NOTE | 2016-07-09 06:50 | RADRPT ---
PROCEDURE: XR Chest. CLINICAL INDICATION: Shortness of breath TECHNIQUE: Portable single view of the chest COMPARISON: 07/06 FINDINGS: Cardiomegaly and mild pulmonary vascular congestion is again seen. Reduced lung volumes with slight ly increased interstitial markings but no focal alveolar infiltrate or pleural effusion. Right shou lder hardware is again seen. IMPRESSION: No significant interval change. Mild interstitial prominence and top normal pulmonary vascularity. Cardiomegaly. RPTAT: HLBE Trayn Sherman Physician Date Time Electronically viewed and signed by Taryn Sherman Physician on 07/09/2016 06:50 LE/
[2016-07-09 06:51] LABS: CALCIUM 8.4 mg/dl (8.4-10.2); MAGNESIUM 2.2 mg/dl (1.7-2.5); PHOSPHORUS 5.9 mg/dl (2.5-4.9)
[2016-07-09] MEDS: CALCIUM ACETATE 667 MG CAP PO SCH ×3 (08:15→17:28)
[2016-07-09] MEDS: FOLIC ACID 1 MG TAB PO SCH (08:36)
[2016-07-09] MEDS: POLYETHYLENE GLYCOL 17 GM PACKET PO SCH (08:36)
[2016-07-09] MEDS: DULOXETINE 30 MG CAP DR PO SCH ×2 (08:36→20:35)
[2016-07-09] MEDS: MULTIVIT/CA CARB/B CMPLX/FA TAB PO SCH (08:36)
[2016-07-09] MEDS: predniSONE 5 MG TAB PO SCH (08:36)
[2016-07-09] MEDS: HYDROXYCHLOROQUINE 200 MG TAB PO SCH (09:00)
--- NOTE | 2016-07-09 10:10 | RADRPT ---
PROCEDURE: CT angiogram of the abdomen and pelvis with 3-D reconstructions CLINICAL INDICATION: MESENTERIC ISCHEMIA TECHNIQUE: CT angiogram of the abdomen and pelvis was performed on a multislice CT scanner . The patient was scanned after administration of intravenous contrast. Sagittal and coronal reformatted images were obtained from the axial source images. 3D MIP reformatted images were also created from the axial source images. DLP 712.96 mGycm CTDI vol 57.51, 10.70 mGy COMPARISON: CT abdomen/pelvis from 07/08/2016 FINDINGS: ANGIOGRAM FINDINGS: There is no acute dissection or aneurysm of the abdominal aorta. There is mild to moderate narrowing at the origin of the celiac axis to approximately 4 mm with post stenotic dilatation up to 7 mm. There is mild narrowing at the origin of the SMA to approximately 5 mm with poststenotic dilatation up to 7 mm. There is moderate narrowing at the origin of the SANKET. There is severe atherosclerotic narrowing at the origin of bilateral renal arteries. Common, internal and external iliac arteries are patent bilaterally. The [employer] and proximal SFA and profunda arteries are patent bilaterally. ANCILLARY FINDINGS: Mild to moderate cardiomegaly is again noted. 1.4 cm simple cyst is again noted in segment 4A of the liver as well as an adjacent sub-centimeter h ypodensity which is too small to characterize, but likely represents a cyst. There is a 1.1 cm cystic lesion in the spleen. There is a small hiatal hernia. Bilateral kidneys are markedly atrophic. Again noted is significant wall thickening and surrounding inflammation of a short segment of distal descending / proximal sigmoid colon. Multiple branches of the SANKET are noted to be patent through t his segment of bowel. Postsurgical changes are also noted in this segment. There is mild pelvic fr ee fluid. IMPRESSION: Mild to moderate narrowing at the origins of the mesenteric vessels without evidence of severe narro wing, as above. Significant inflammation of a short segment of distal descending / proximal sigmoid colon is again n oted with multiple small patent branches of the SANKET noted to traverse this region of inflammation. C atheter angiography is considered the gold standard for diagnosis although narrowing of the mesenter ic vessels is considered less likely as the cause of mesenteric ischemia given the current CTA findi ngs. The patient is also noted to have cardiomegaly. Heart failure can also be considered in the di fferential etiology of mesenteric ischemia. Clinical correlation is recommended. Severe narrowing is noted at the origins of bilateral renal arteries. Correlation with blood pressu re for renovascular hypertension is recommended. Physician Rey Date Time Electronically viewed and signed by Matthias Dickinson Physician on 07/09/2016 10:10 RA/
--- NOTE | 2016-07-09 13:33 | CONS ---
Date/Time of Note Date/Time of Note DATE: 07/09/16 TIME: 13:18 Assessment/Plan Assessment/Plan Problems: (1) Ischemic colitis Comment: no leukocytosis or lactic acidemia..... does have fever, and is on abx... CTA of the abdomen shows NO thrombosis or critical vascular stenosis of the SMA or SANKET branches (2) ESRD (end stage renal disease) on dialysis Comment: q MWF... for dialysis today (3) Lupus Comment: quiet, on meds (4) HTN (hypertension) Comment: runs low typically... no wories here (5) Fever Comment: blood cxs done... on broad abx... no leukocytosis or high lactate, tho Consultation Date/Type/Reason Admit Date/Time Jul 08, 2016 at 16:36 Initial Consult Date Type of Consultation: neph 24 HR Interval Summary Free Text/Dictation about the same... getting IV Dilaudid prn LLQ pain Exam/Review of Systems Vital Signs Vitals Vital Signs Date Time Temp Pulse Resp B/P Pulse Ox O2 Delivery O2 Flow Rate FiO2 07/09/16 07:54 98.8 69 19 109/56 98 07/08/16 18:28 Room Air Intake and Output 07/08/16 07/08/16 07/09/16 15:00 23:00 07:00 Intake Total 50 ml 650 ml Balance 50 ml 650 ml Exam Constitutional: alert, oriented Neck: supple Respiratory: clear to auscultation Cardiovascular: regular rate and rhythm Gastrointestinal: bowel sounds, tender (tender LLQ... no abram...NABS) Extremities: normal pulses (fxn LUE AVG) Results Result Diagram: 07/09/16 0520 07/09/16 0520 Results 24 hrs Laboratory Tests Test 07/08/16 16:55 07/08/16 20:42 07/09/16 05:20 Activated Partial Thromboplast Time 31.2 INR International Normalized Ratio 1.26 Prothrombin Time 15.9 H Prothrombin Time Ratio 1.2 Carcinoembryonic Antigen 3.4 Lactic Acid Level 0.5 Alanine Aminotransferase (ALT/SGPT) 19 Albumin 2.8 L Albumin/Globulin Ratio 0.96 Alkaline Phosphatase 114 # Anion Gap 19 H Aspartate Amino Transf (AST/SGOT) 27 Basophils # 0.0 Basophils % 0.1 Blood Urea Nitrogen 56 H Calcium Level 8.4 Carbon Dioxide Level 23 Chloride Level 92 L Creatinine 10.08 H Direct Bilirubin 0.00 Eosinophils # 0.0 Eosinophils % 0.2 Globulin 2.90 Glucose Level 74 Hematocrit 29.8 L Hemoglobin 9.6 L Hemoglobin A1c 5.1 Indirect Bilirubin 0.0 Lymphocytes # 0.5 L Lymphocytes % 4.3 L Magnesium Level 2.2 Mean Corpuscular Hemoglobin 33.9 H Mean Corpuscular Hemoglobin Concent 32.2 Mean Corpuscular Volume 105.3 H Mean Platelet Volume 11.4 H Monocytes # 1.5 H Monocytes % 13.9 H Neutrophils # 8.7 H Neutrophils % 80.7 H Nucleated Red Blood Cells # 0.0 Nucleated Red Blood Cells % 0.0 Phosphorus Level 5.9 H Platelet Count 110 L Potassium Level 4.8 Red Blood Count 2.83 L Red Cell Distribution Width 13.9 Sodium Level 129 L Total Bilirubin 0.0 L Total Protein 5.7 #L White Blood Count 10.8 Medications Medications Current Medications Ondansetron HCl (Zofran Inj) 4 mg Q6H PRN IV NAUSEA AND/OR VOMITING; Start 07/08 at 17:00 Acetaminophen (Tylenol Tab) 650 mg Q6H PRN PO PAIN LEVEL 1-3 OR FEVER Last administered on 07/09/16 12:39; Admin Dose 650 MG; Start 07/08/16 at 17:00 Docusate Sodium (Colace) 100 mg Q12H PRN PO CONSTIPATION; Start 07/08/16 at 17: 00 Bisacodyl (Dulcolax) 5 mg DAILY PRN PO CONSTIPATION; Start 07/08/16 at 17:00 Pantoprazole 40 mg 40 mg DAILY@06 IV Last administered on 07/09/16 05:39; Admin Dose 40 MG; Start 07/09/16 at 06:00 Piperacillin Sod/ Tazobactam Sod (Zosyn 2.25gm/ 50ml (Pmx)) 50 ml @ 100 mls/hr Q8 IVPB Last administered on 07/09/16 05:39; Admin Dose 100 MLS/HR; Start 07/08 at 22:00 Carvedilol (Coreg) 25 mg BID PO ; Start 07/08/16 at 21:00 Duloxetine HCl (Cymbalta) 30 mg BID PO Last administered on 07/09/16 08:36; Admin Dose 30 MG; Start 07/08/16 at 21:00 Folic Acid (Folic Acid) 1 mg DAILY PO Last administered on 07/09/16 08:36; Admin Dose 1 MG; Start 07/09/16 at 09:00 Gabapentin (Neurontin) 300 mg QHS PO Last administered on 07/08/16 22:03; Admin Dose 300 MG; Start 07/08/16 at 21:00 Hydroxychloroquine Sulfate (Plaquenil) 300 mg DAILY PO ; Start 07/09/16 at 09:00 Multivit/Ca Carb/ B Cmplx/FA/Prenat (Teodora-Sarah) 1 tab DAILY PO Last administered on 07/09/16 08:36; Admin Dose 1 TAB; Start 07/09/16 at 09:00 Polyethylene Glycol (Miralax) 17 gm DAILY PO Last administered on 07/09/16 08: 36; Admin Dose 17 GM; Start 07/09/16 at 09:00 Prednisone (Prednisone) 5 mg DAILY PO Last administered on 07/09/16 08:36; Admin Dose 5 MG; Start 07/09/16 at 09:00 Atorvastatin Calcium 10 mg 10 mg DAILY@21 PO Last administered on 07/08/16 22: 03; Admin Dose 10 MG; Start 07/08/16 at 21:00 Dextrose/Sodium Chloride (D5-1/2ns) 1,000 ml @ 80 mls/hr [id number] IV Last administered on 07/09/16 12:40; Admin Dose 80 MLS/HR; Start 07/08/16 at 17:30 Hydromorphone HCl (Dilaudid) 1 mg Q2 PRN IV SEVERE PAIN LEVEL 7-10 Last administered on 07/09/16 12:36; Admin Dose 1 MG; Start 07/08/16 at 20:00 MARSHA LOPEZ MD Jul 09, 2016 13:33
[2016-07-09] MEDS: HYDROCODONE/APAP (5/325) TAB PO PRN (16:38)
[2016-07-09] MEDS ORDERED: HYDROCODONE/APAP (5/325) TAB PO PRN (17:00)
--- NOTE | 2016-07-09 17:19 | RADRPT ---
Vent Rate: 68 bpm RR Interval: 0 msec MS Interval: 162 msec QRS Duration: 154 msec QT Interval: 448 msec QTC Interval: 476 msec P-R-T [place]: 39 - -27 - 13 degrees Normal sinus rhythm Right bundle branch block Moderate voltage criteria for LVH, may be normal variant Cannot rule out Septal infarct , age undetermined Lateral infarct , age undetermined Abnormal ECG Electronically Signed By: Joaquin Langford [id number]
--- NOTE | 2016-07-09 18:23 | CONS ---
DATE OF ADMISSION: 07/08/2016 DATE OF CONSULTATION: 07/09/2016 VASCULAR SURGERY CONSULTATION Dear Doctors: Ms. Maryanne Garnica is a 55-year-old female known to our vascular surgery service second adelita to her history of end-stage renal disease in which she had underwent a left upper extremity sharon riovenous fistula revision. Patient currently has been tolerating her dialysis sessions via her lef t upper extremity fistula on Tuesday, Tuesday, and Tuesday. She had recently developed aneurysmal c hanges in which we were considering for possible revision in the near future as it has become a bit bothersome and causing discomfort for her. At the moment, the patient was admitted to [facility] secondary to having significant abdominal pain that she has had for a number of days now. Upon CT scan of the abdomen and pelvis was identified the patient had pericolonic inflammatio n in the descending colon. There was also some suggestion for possible thrombosis of the mesenteric vessels. Subsequently, we had ordered a CT angiography to better delineate these findings and it w as identified the patient actually has a patent celiac/SMA/SANKET mesenteric vessels. No acute occlusi on has been identified thus far. Patient has left lower quadrant pain, otherwise, denies shortness of breath, chest pain, nausea, vomiting, fever or chills. She denies lower extremity claudication o r rest pain-like symptoms. She denies left upper extremity claudication or rest pain-like symptoms. REVIEW OF SYSTEMS: A 12-point review performed and negative except what is mentioned in the HPI. PAST MEDICAL HISTORY: Entails morbidly obese, end-stage renal disease, hypertension, hyperlipidemia , end-stage renal disease and borderline diabetic. PAST SURGICAL HISTORY: Multiple chest wall catheters and left upper extremity fistula. FAMILY HISTORY: Positive for diabetes and coronary artery disease. SOCIAL HISTORY: Denies current alcohol, tobacco or illicit drug use. PHYSICAL EXAMINATION: GENERAL: Alert and oriented x3, no apparent distress at rest. HEENT: Normocephalic, atraumatic. PERRLA. EOMI. Mucosa moist. NECK: Supple. No carotid bruit. PULMONARY: Clear to auscultation bilaterally. No crackles. CARDIOVASCULAR: S1, S2 present. There is a systolic murmur. ABDOMEN: Soft, left lower quadrant tenderness. No peritonitis. Bowel sounds positive. EXTREMITIES: Lower extremities: Palpable femoral pulse, nonpalpable pedal pulse. Motor, sensory in tact. Cap refill 3 seconds. Large legs. Left upper extremity: Palpable brachial pulse. Motor, s ensory intact. Cap refill 2 seconds. Surgical scar in the upper arm well healed. Fistula with bru it and thrill present. ASSESSMENT AND PLAN: 1. Mesenteric ischemia: It seems that the patient's left colon findings with pericolonic inflammat ion unlikely related to mesenteric ischemia. It seems that the patient may have other underlying is sues in which would follow up with our general surgery colleagues. I am concerned the patient may h ave underlying carcinoma that would need to be investigated. Would recommend a colonoscopy to be do ne. I did speak with the family. They mentioned her last colonoscopy was back in February and she harrell d some polyps that were removed; however, they do not recall the biopsy results. There could be a c ontribution of localized thrombosed mesenteric vessels; however, based on our findings and patency o f her celiac, SMA and partial of her SANKET there is no further vascular intervention that would be nee ded. If her symptoms do not improve, she may require a colectomy of that segment. 2. Optimize vascular status (BP meds, diet, nutrition, exercise, sugar control, antiplatelets). 3. End-stage renal disease: At the moment, the patient's left upper extremity AV fistula is functi onal and no further intervention is needed. However, in the near future we will plan to resolve her aneurysmal changes of the fistula which can be done as an outpatient. 4. Discussed findings, plan and management with the patient with a certified family practice medical doctor and jimena. Thank you for allowing us to partake in the care of your patient. Please call with any questions. Dictated By: HEENA HENNING/ALEX Conf#: [id number] DID#: [id number]
[2016-07-09] MEDS: DIPHENHYDRAMINE 25 MG CAP PO PRN (20:35)
[2016-07-09] MEDS: ATORVASTATIN 10 MG TAB PO SCH (20:35)
[2016-07-09] MEDS: GABAPENTIN 300 MG CAP PO SCH (20:35)
[2016-07-09] MEDS: HYDROCODONE/APAP (10/325) TAB PO PRN (22:16)
[2016-07-10] MEDS: DEXTROSE 5%-0.45% NACL 1,000 ML IV SCH ×3 (01:20→13:11)
[2016-07-10] MEDS: PANTOPRAZOLE 40 MG INJ IV SCH (05:40)
[2016-07-10] MEDS: PIPER-TAZO 2.25 GM (PMX) 50 ML IVPB SCH ×3 (05:40→21:36)
[2016-07-10 06:06] LABS: ABNORMAL IP MESSAGE 1; ADD SCAN DIFF NO; EOSINOPHILS % 0.1 % (0.0-7.0); HEMATOCRIT 26.5 % (37.0-47.0); HEMOGLOBIN 8.4 g/dl (12.0-16.0); LYMPHOCYTES # 0.5 10^3/ul (0.8-2.9); LYMPHOCYTES % 5.6 % (15.0-51.0); MEAN CORPUSCULAR HEMOGLOBIN 33.3 pg (29.0-33.0); MEAN CORPUSCULAR HGB CONC 31.7 g/dl (32.0-37.0); MEAN CORPUSCULAR VOLUME 105.2 fl (82.0-101.0); MONOCYTE # 1.2 10^3/ul (0.3-0.9); MONOCYTES % 13.2 % (0.0-11.0); NEUTROPHIL # 7.5 10^3/ul (1.6-7.5); NEUTROPHILS % 80.2 % (39.0-77.0); PLATELET COUNT 108 10^3/UL (140-415); RED BLOOD COUNT 2.52 10^6/ul (4.20-5.40); RED CELL DISTRIBUTION WIDTH 14.1 % (11.5-14.5); WHITE BLOOD COUNT 9.4 10^3/ul (4.8-10.8)
[2016-07-10 06:22] LABS: ALBUMIN 2.4 g/dl (3.3-4.9)
[2016-07-10 06:25] LABS: ALBUMIN/GLOBULIN RATIO 0.88; BILIRUBIN,INDIRECT 0.1 mg/dl (0-1.1); BILIRUBIN,TOTAL 0.1 mg/dl (0.2-1.3); CREATININE 5.35 mg/dl (0.44-1.00); TOTAL PROTEIN 5.1 g/dl (6.1-8.1)
[2016-07-10 06:26] LABS: CALCIUM 8.1 mg/dl (8.4-10.2)
[2016-07-10] MEDS: HYDROCODONE/APAP (10/325) TAB PO PRN (07:56)
[2016-07-10] MEDS: ACETAMINOPHEN 325 MG TAB PO PRN (07:56)
[2016-07-10 08:02] VITALS: BP 114/54; RESP 24
[2016-07-10] MEDS: CALCIUM ACETATE 667 MG CAP PO SCH ×3 (08:15→17:49)
--- NOTE | 2016-07-10 08:24 | PN ---
Date/Time of Note Date/Time of Note DATE: 07/10/16 TIME: 08:21 Assessment/Plan Lines/Catheters [facility] Saline Lock Assessment/Plan Chief Complaint/Hosp Course -Mesenteric ischemia: It seems that the patient's left colon findings with pericolonic inflammation unlikely related to mesenteric ischemia. The patient may have other underlying issues in which we will follow up with our general surgery colleagues. I am concerned the patient may have underlying carcinoma that would need to be investigated. Would recommend a colonoscopy to be done. I did speak with the family. They mentioned her last colonoscopy was back in February and she had some polyps that were removed; however, they do not recall the biopsy results. There could also be a contribution of localized thrombosed mesenteric vessels; however, based on our findings and patency of her celiac, SMA and partial of her SANKET there is no further vascular intervention that would be needed. If her symptoms do not improve, she may require a colectomy of that segment. -Optimize vascular status (BP meds, diet, nutrition, exercise, sugar control, antiplatelets). -End-stage renal disease: At the moment, the patient's left upper extremity AV fistula is functional and no further intervention is needed. However, in the near future we will plan to resolve her aneurysmal changes of the fistula which can be done as an outpatient. -Discussed findings, plan and management with the patient with a certified furniture servicer and she understands. -Thank you for allowing us to partake in the care of your patient. Please call with any questions. Problems: Subjective 24 Hr Interval Summary no new vascular changes overnight, tolerated HD well Exam/Review of Systems Vital Signs Vitals Vital Signs Date Time Temp Pulse Resp B/P Pulse Ox O2 Delivery O2 Flow Rate FiO2 07/10/16 08:02 102.7 84 24 114/54 91 07/08/16 18:28 Room Air Intake and Output 07/09/16 07/09/16 07/10/16 15:00 23:00 07:00 Intake Total 600 ml 1100 ml 960 ml Output Total 1000 ml 0 ml Balance 600 ml 100 ml 960 ml Exam Free Text/Dictation GENERAL: Alert and oriented x3, PULMONARY: Clear to auscultation bilaterally CARDIOVASCULAR: S1, S2 present ABDOMEN: Soft, left lower quadrant tenderness 3-4/10. No peritonitis. Bowel sounds positive. EXTREMITIES: Lower extremities: Palpable femoral pulse, nonpalpable pedal pulse. Motor, sensory intact. Cap refill 3 seconds. Large legs. Left upper extremity: Palpable brachial pulse. Motor, sensory intact. Cap refill 2 seconds. Surgical scar in the upper arm well healed. Fistula with bruit and thrill present. aneurysmal Results Result Diagram: 07/10/16 0528 07/10/16 0528 HEENA SOUSA MD Jul 10, 2016 08:23
[2016-07-10] MEDS: POLYETHYLENE GLYCOL 17 GM PACKET PO SCH (08:30)
[2016-07-10] MEDS: predniSONE 5 MG TAB PO SCH (08:30)
[2016-07-10] MEDS: MULTIVIT/CA CARB/B CMPLX/FA TAB PO SCH (08:30)
[2016-07-10] MEDS: DULOXETINE 30 MG CAP DR PO SCH ×2 (08:30→20:34)
[2016-07-10] MEDS: FOLIC ACID 1 MG TAB PO SCH (08:30)
[2016-07-10] MEDS: HYDROXYCHLOROQUINE 200 MG TAB PO SCH (08:31)
--- NOTE | 2016-07-10 11:10 | CONS ---
Date/Time of Note Date/Time of Note DATE: 07/10/16 TIME: 11:02 Assessment/Plan Assessment/Plan Chief Complaint/Hosp Course 1. ESRD , on maintenance hemodialysis M W F 2. LLQ abdominal pain , vascular surgery does not think this is ischemic bowel . 3. fever , BC done yesterday no growth thus far , she on antibiotics . 4. continue antibiotics , analgesia and surgical evaluation , labs in am . Problems: Consultation Date/Type/Reason Admit Date/Time Jul 08, 2016 at 16:36 Initial Consult Date Type of Consultation: neph 24 HR Interval Summary Free Text/Dictation she says that she is having less abdominal pain ; however she does have a fever . Exam/Review of Systems Vital Signs Vitals Vital Signs Date Time Temp Pulse Resp B/P Pulse Ox O2 Delivery O2 Flow Rate FiO2 07/10/16 08:02 102.7 84 24 114/54 91 07/08/16 18:28 Room Air Intake and Output 07/09/16 07/09/16 07/10/16 15:00 23:00 07:00 Intake Total 600 ml 1100 ml 960 ml Output Total 1000 ml 0 ml Balance 600 ml 100 ml 960 ml Exam Constitutional: alert, oriented Respiratory: clear to auscultation Cardiovascular: regular rate and rhythm Gastrointestinal: soft, tender Musculoskeletal: nl extremities to inspection Results Result Diagram: 07/10/1652707/10/16527 Results 24 hrs Laboratory Tests Test 07/10/16 05:28 Alanine Aminotransferase (ALT/SGPT) 20 Albumin 2.4 L Albumin/Globulin Ratio 0.88 Alkaline Phosphatase 58 Anion Gap 17 H Aspartate Amino Transf (AST/SGOT) 20 Basophils # 0.0 Basophils % 0.0 Blood Urea Nitrogen 21 #H Calcium Level 8.1 L Carbon Dioxide Level 27 Chloride Level 99 Creatinine 5.35 #H Direct Bilirubin 0.00 Eosinophils # 0.0 Eosinophils % 0.1 Globulin 2.70 Glucose Level 277 #H Hematocrit 26.5 L Hemoglobin 8.4 L Indirect Bilirubin 0.1 Lactic Acid Level 0.7 Lymphocytes # 0.5 L Lymphocytes % 5.6 L Mean Corpuscular Hemoglobin 33.3 H Mean Corpuscular Hemoglobin Concent 31.7 L Mean Corpuscular Volume 105.2 H Mean Platelet Volume 11.0 H Monocytes # 1.2 H Monocytes % 13.2 H Neutrophils # 7.5 Neutrophils % 80.2 H Nucleated Red Blood Cells # 0.0 Nucleated Red Blood Cells % 0.0 Platelet Count 108 L Potassium Level 4.0 Red Blood Count 2.52 L Red Cell Distribution Width 14.1 Sodium Level 139 Total Bilirubin 0.1 L Total Protein 5.1 L White Blood Count 9.4 Medications Medications Current Medications Ondansetron HCl (Zofran Inj) 4 mg Q6H PRN IV NAUSEA AND/OR VOMITING; Start 07/08 at 17:00 Acetaminophen (Tylenol Tab) 650 mg Q6H PRN PO PAIN LEVEL 1-3 OR FEVER Last administered on 07/10/16 07:56; Admin Dose 650 MG; Start 07/08/16 at 17:00 Docusate Sodium (Colace) 100 mg Q12H PRN PO CONSTIPATION; Start 07/08/16 at 17: 00 Bisacodyl (Dulcolax) 5 mg DAILY PRN PO CONSTIPATION; Start 07/08/16 at 17:00 Pantoprazole 40 mg 40 mg DAILY@06 IV Last administered on 07/10/16 05:40; Admin Dose 40 MG; Start 07/09/16 at 06:00 Piperacillin Sod/ Tazobactam Sod (Zosyn 2.25gm/ 50ml (Pmx)) 50 ml @ 100 mls/hr Q8 IVPB Last administered on 07/10/16 05:40; Admin Dose 100 MLS/HR; Start 07/08 at 22:00 Carvedilol (Coreg) 25 mg BID PO Last administered on 07/09/16 20:36; Admin Dose 25 MG; Start 07/08/16 at 21:00 Duloxetine HCl (Cymbalta) 30 mg BID PO Last administered on 07/10/16 08:30; Admin Dose 30 MG; Start 07/08/16 at 21:00 Folic Acid (Folic Acid) 1 mg DAILY PO Last administered on 07/10/16 08:30; Admin Dose 1 MG; Start 07/09/16 at 09:00 Gabapentin (Neurontin) 300 mg QHS PO Last administered on 07/09/16 20:35; Admin Dose 300 MG; Start 07/08/16 at 21:00 Hydroxychloroquine Sulfate (Plaquenil) 300 mg DAILY PO Last administered on 08:31; Admin Dose 300 MG; Start 07/09/16 at 09:00 Multivit/Ca Carb/ B Cmplx/FA/Prenat (Teodora-Sarah) 1 tab DAILY PO Last administered on 07/10/16 08:30; Admin Dose 1 TAB; Start 07/09/16 at 09:00 Polyethylene Glycol (Miralax) 17 gm DAILY PO Last administered on 07/10/16 08: 30; Admin Dose 17 GM; Start 07/09/16 at 09:00 Prednisone (Prednisone) 5 mg DAILY PO Last administered on 07/10/16 08:30; Admin Dose 5 MG; Start 07/09/16 at 09:00 Atorvastatin Calcium 10 mg 10 mg DAILY@21 PO Last administered on 07/09/16 20: 35; Admin Dose 10 MG; Start 07/08/16 at 21:00 Dextrose/Sodium Chloride (D5-1/2ns) 1,000 ml @ 80 mls/hr [id number] IV Last administered on 07/10/16 01:20; Admin Dose 80 MLS/HR; Start 07/08/16 at 17:30 Hydromorphone HCl (Dilaudid) 1 mg Q2 PRN IV SEVERE PAIN LEVEL 7-10 Last administered on 07/09/16 12:36; Admin Dose 1 MG; Start 07/08/16 at 20:00 Acetaminophen/ Hydrocodone Bitart ([place] (5/325)) 1 tab Q6H PRN PO PAIN LEVEL 4 -7 Last administered on 07/09/16 16:38; Admin Dose 1 TAB; Start 07/09/16 at 14: 00 Acetaminophen/ Hydrocodone Bitart ([place] (10/325)) 2 tab Q4H PRN PO PAIN Last administered on 07/10/16 07:56; Admin Dose 2 TAB; Start 07/09/16 at 20:30 Diphenhydramine HCl (Benadryl) 25 mg Q6H PRN PO ITCHING Last administered on 20:35; Admin Dose 25 MG; Start 07/09/16 at 20:30 KEYA SCHUSTER MD Jul 10, 2016 11:10
--- NOTE | 2016-07-10 15:29 | RADRPT ---
PROCEDURE: XR Chest. CLINICAL INDICATION: Shortness of breath TECHNIQUE: Frontal chest x-ray was obtained. COMPARISON: Chest x-ray July 09 FINDINGS: There is cardiomegaly. Mediastinum is not widened. No hilar masses seen. Lungs are clear of any i nfiltrates. There is no effusion or pneumothorax. The patient is status post right shoulder replac ement. IMPRESSION: Cardiomegaly. No pneumonia or failure . .Wyatt Mitchell MD, MD Date Time Electronically viewed and signed by .Wyatt Mitchell MD, MD on 07/10/2016 15:29 .A/
[2016-07-10 19:11] LABS: URINE COLOR LT. YELLOW (YELLOW); URINE GLUCOSE (Dip) NEGATIVE (NEGATIVE); URINE TOTAL PROTEIN (Dip) 2+ (NEGATIVE)
[2016-07-10 19:12] LABS: ADD UMIC YES; URINE BILIRUBIN (Dip) NEGATIVE (NEGATIVE); URINE BLOOD (Dip) TRACE (NEGATIVE); URINE KETONES (Dip) NEGATIVE (NEGATIVE); URINE LEUKOCYTE ESTERASE (Dip) NEGATIVE (NEGATIVE); URINE NITRITE (Dip) NEGATIVE (NEGATIVE); URINE UROBILINOGEN (Dip) 0.2 E.U./dL (0.1-1.0)
[2016-07-10] MEDS: HYDROCODONE/APAP (5/325) TAB PO PRN (19:14)
[2016-07-10 19:33] LABS: SQUAMOUS EPITHELIAL CELL,UR MODERATE; URINE RBCS 0-2 /HPF (0)
[2016-07-10 19:34] LABS: BACTERIA,URINE FEW
[2016-07-10 20:05] VITALS: BP 118/58; RESP 16
[2016-07-10] MEDS: GABAPENTIN 300 MG CAP PO SCH (20:34)
[2016-07-10] MEDS: ATORVASTATIN 10 MG TAB PO SCH (20:34)
[2016-07-11] MEDS: DEXTROSE 5%-0.45% NACL 1,000 ML IV SCH ×2 (03:12→08:00)
[2016-07-11] MEDS: HYDROCODONE/APAP (10/325) TAB PO PRN (03:25)
[2016-07-11] MEDS: PANTOPRAZOLE 40 MG INJ IV SCH (05:25)
[2016-07-11] MEDS: PIPER-TAZO 2.25 GM (PMX) 50 ML IVPB SCH ×3 (05:30→21:01)
[2016-07-11 06:43] LABS: BASOPHILS % 0.2 % (0.0-2.0); HEMATOCRIT 26.3 % (37.0-47.0); HEMOGLOBIN 8.8 g/dl (12.0-16.0); LYMPHOCYTES # 0.7 10^3/ul (0.8-2.9); LYMPHOCYTES % 7.6 % (15.0-51.0); MEAN CORPUSCULAR HEMOGLOBIN 34.8 pg (29.0-33.0); MEAN CORPUSCULAR HGB CONC 33.4 g/dl (32.0-37.0); MEAN CORPUSCULAR VOLUME 104.2 fl (82.0-101.0); MEAN PLATELET VOLUME 8.7 fl (7.4-10.4); MONOCYTE # 0.8 10^3/ul (0.3-0.9); MONOCYTES % 8.8 % (0.0-11.0); NEUTROPHIL # 7.9 10^3/ul (1.6-7.5); NEUTROPHILS % 83.4 % (39.0-77.0); PLATELET COUNT 125 10^3/UL (140-440); RED BLOOD COUNT 2.52 10^6/ul (4.20-5.40); RED CELL DISTRIBUTION WIDTH 15.4 % (11.5-14.5); UNCORRECTED WBC 9.4 10^3/ul (4.8-10.8); WHITE BLOOD COUNT 9.4 10^3/ul (4.8-10.8)
[2016-07-11 06:52] LABS: CONDITION 1; LH ANALYZER COMMENTS 1
[2016-07-11 07:00] LABS: ALBUMIN 2.8 g/dl (3.3-4.9)
[2016-07-11 07:01] LABS: POTASSIUM 4.2 mmol/L (3.5-5.1)
[2016-07-11 07:03] LABS: CREATININE 7.17 mg/dl (0.44-1.00)
[2016-07-11 07:04] LABS: ALBUMIN/GLOBULIN RATIO 0.87; CALCIUM 8.8 mg/dl (8.4-10.2)
[2016-07-11 08:13] VITALS: BP 123/63; RESP 20
[2016-07-11] MEDS: CALCIUM ACETATE 667 MG CAP PO SCH ×3 (08:15→17:20)
[2016-07-11] MEDS: MULTIVIT/CA CARB/B CMPLX/FA TAB PO SCH (08:20)
[2016-07-11] MEDS: DULOXETINE 30 MG CAP DR PO SCH ×2 (08:20→20:55)
[2016-07-11] MEDS: POLYETHYLENE GLYCOL 17 GM PACKET PO SCH (08:20)
[2016-07-11] MEDS: predniSONE 5 MG TAB PO SCH (08:20)
[2016-07-11] MEDS: FOLIC ACID 1 MG TAB PO SCH (08:20)
[2016-07-11] MEDS: HYDROXYCHLOROQUINE 200 MG TAB PO SCH (08:20)
--- NOTE | 2016-07-11 09:11 | CONS ---
DATE OF ADMISSION: 07/08/2016 DATE OF CONSULTATION: 07/08/2016 TYPE OF CONSULTATION: Surgical. REFERRING PHYSICIAN: Dr. Michael Bearden CHIEF COMPLAINT: 1. Abdominal pain. 2. Possible focal sigmoid ischemia. 3. End-stage renal disease on hemodialysis. 4. Hypertension. 5. Lupus. HISTORY OF PRESENT ILLNESS: Ms. Maryanne Garnica is a 55-year-old female with multiple significant comor bidities who in the past week has been feeling poorly with decreased oral intake and lethargy and st arted having increasing abdominal pain mostly in the lower left side. She denies any fevers or chil ls. She denies any chest pain or shortness of breath. No visual or neurologic changes. No dysuria or vaginal discharge. Her workup identified normal labs, meaning normal WBC. However, she is anem ic. She does have evidence of renal failure. She had a recent colonoscopy in February by Dr. Deborah webb which showed sigmoid colonic polyp that was removed with biopsy forceps, diverticulosis of the col on, internal hemorrhoids. On endoscopy, she also had gastritis with erosion and gastric polyp in th e prepyloric area. Most recently she had a CT scan of the abdomen and pelvis which identified possi ble focal ischemia of the sigmoid colon with questionable distal thrombotic vessels. She is admitte d, and surgical consult is obtained for further evaluation and treatment. PAST MEDICAL HISTORY: 1. End-stage renal disease on hemodialysis. 2. Thrombocytopenia. 3. Hypertension. 4. Depression. 5. Lupus on Prednisone and Plaquenil. 6. Hyperlipidemia. 7. Left lower quadrant abdominal pain with questionable ischemic versus infected segment. 8. Diverticulosis. 9. Colonic polyps, adenoma. 10. Erosive gastritis. 11. Prepyloric gastric polyp. 12. Neuropathy. 13. Fibromyalgia. 14. Osteoporosis. 15. BMI 29 16. Borderline diabetes. 17. Anemia. 18. Hypoalbuminemia. PAST SURGICAL HISTORY: 1. Multiple chest wall catheters. 2. Left upper extremity AV fistula. 3. Tubal ligation. 4. Right shoulder surgery. MEDICATIONS: As per record. ALLERGIES: NONE. SOCIAL HISTORY: No current alcohol, drugs, or tobacco. FAMILY HISTORY: Noncontributory. REVIEW OF SYSTEMS: A 12-point review of systems negative unless addressed as in HPI. PHYSICAL EXAMINATION: VITAL SIGNS: Temperature is 98.9, pulse 69, blood pressure 100/57. GENERAL: No acute distress. Somewhat uncomfortable and obese. HEENT: Pupils equal, reactive. No scleral icterus. Mucous membranes somewhat dry. NECK: Supple, no JVD. No crepitus. Trachea midline. PULMONARY: Normal respiratory effort. No wheezing. HEART: S1, S2 present. ABDOMEN: Soft, tender mostly in the left lower quadrant without rebound, guarding, rigidity. EXTREMITIES: No edema. VASCULAR: Cap refill less than 2 seconds. NEUROLOGIC: Alert, oriented, moves all 4 extremities grossly. LABORATORY AND RADIOGRAPHIC: As per chart and HPI. ASSESSMENT AND PLAN: Ms. Maryanne Garnica is a 55-year-old female with multiple significant comorbiditie s. 1. Abdominal pain with CT findings of possible infection versus focal ischemia. We will recommend vascular consultation and CT angio. Continue antibiotics and supportive care. If not improving or worsening, may need surgical resection. Continue anticoagulation at this time. 2. Anemia without evidence of acute blood loss. Continue close observation. 3. Lupus. Continue medical optimization. 4. Fibromyalgia, neuropathy. Continue medical management. 5. End-stage renal disease on hemodialysis. 6. Hypoalbuminemia is multifactorial; however, will benefit from eventual nutritional optimization. Thank you very much for consulting me in this patient's care. Dictated By: BALJEET SEGURA/ALEX Conf#: [id number] DID#: [id number]
[2016-07-11] MEDS: ACETAMINOPHEN 325 MG TAB PO PRN ×2 (12:50→20:55)
--- NOTE | 2016-07-11 13:34 | PN ---
Date/Time of Note Date/Time of Note DATE: 07/11/16 TIME: 12:53 Assessment/Plan VTE Prophylaxis VTE Prophylaxis Intervention: SCD's Lines/Catheters [facility] Saline Lock Urinary Cath still in place: No Assessment/Plan Chief Complaint/Hosp Course 1. ESRD , on maintenance hemodialysis [facility] , hemodialysis ordered for tomorrow . 2. LLQ abdominal pain , vascular surgery does not think this is ischemic bowel . She continues to have pain . She has just started clear liquids . 3. Afebrile , BC done , no growth thus far , she on antibiotics . 4. continue antibiotics , analgesia and surgical evaluation , labs in am . 5. episodes of confusion , no focal deficits on neurologic exam . I suspect confusion due to combination of factors , pain meds , ing , lack of sleep . Problems: Subjective 24 Hr Interval Summary Free Text/Dictation She continues to have abdominal pain . She was confused last night . She is awake and oriented now . Respiratory: no complaints Cardiovascular: no complaints Gastrointestinal: pain Psychological: confusion Exam/Review of Systems Vital Signs Vitals Vital Signs Date Time Temp Pulse Resp B/P Pulse Ox O2 Delivery O2 Flow Rate FiO2 07/11/16 08:13 98.2 57 20 123/63 95 07/08/16 18:28 Room Air Intake and Output 07/10/16 07/10/16 07/11/16 15:00 23:00 07:00 Intake Total 640 ml 550 ml 350 ml Balance 640 ml 550 ml 350 ml Exam Constitutional: alert Respiratory: clear to auscultation, normal air movement Cardiovascular: regular rate and rhythm Gastrointestinal: soft, tender Musculoskeletal: nl extremities to inspection Neurological: lethargic, nl speech, nl strength Results Result Diagram: 07/11/16 0525 07/11/16 0525 Results 24 hrs Laboratory Tests Test 07/10/16 16:00 07/11/16 05:25 Urine Bacteria FEW Urine Bilirubin NEGATIVE Urine Clarity CLEAR Urine Color LT. YELLOW Urine Glucose NEGATIVE Urine Hemoglobin TRACE Urine Ketones NEGATIVE Urine Leukocyte Esterase NEGATIVE Urine Microscopic RBC 0-2 Urine Microscopic WBC 0-2 Urine Nitrite NEGATIVE Urine Specific [place] 1.015 Urine Squamous Epithelial Cells MODERATE Urine Total Protein 2+ H Urine Urobilinogen 0.2 E.U./dL Urine Yeast OCCASIONAL Urine pH 8.5 Alanine Aminotransferase (ALT/SGPT) 21 Albumin 2.8 L Albumin/Globulin Ratio 0.87 Alkaline Phosphatase 54 Anion Gap 20 H Aspartate Amino Transf (AST/SGOT) 24 Basophils # 0.0 Basophils % 0.2 Blood Morphology Comment Blood Urea Nitrogen 31 H Calcium Level 8.8 Carbon Dioxide Level 24 Chloride Level 98 Creatinine 7.17 H Direct Bilirubin 0.00 Eosinophils # 0.0 Eosinophils % 0.0 Globulin 3.20 Glucose Level 78 # Hematocrit 26.3 L Hemoglobin 8.8 L Indirect Bilirubin 0.0 Lymphocytes # 0.7 L Lymphocytes % 7.6 L Mean Corpuscular Hemoglobin 34.8 H Mean Corpuscular Hemoglobin Concent 33.4 Mean Corpuscular Volume 104.2 H Mean Platelet Volume 8.7 # Monocytes # 0.8 Monocytes % 8.8 Neutrophils # 7.9 H Neutrophils % 83.4 H Nucleated Red Blood Cells # 0.0 Nucleated Red Blood Cells % 0.0 Platelet Count 125 #L Potassium Level 4.2 Red Blood Count 2.52 L Red Cell Distribution Width 15.4 H Sodium Level 138 Total Bilirubin 0.0 L Total Protein 6.0 L White Blood Count 9.4 Medications Medications Current Medications Ondansetron HCl (Zofran Inj) 4 mg Q6H PRN IV NAUSEA AND/OR VOMITING; Start 07/08 at 17:00 Acetaminophen (Tylenol Tab) 650 mg Q6H PRN PO PAIN LEVEL 1-3 OR FEVER Last administered on 07/11/16 12:50; Admin Dose 650 MG; Start 07/08/16 at 17:00 Docusate Sodium (Colace) 100 mg Q12H PRN PO CONSTIPATION; Start 07/08/16 at 17: 00 Bisacodyl (Dulcolax) 5 mg DAILY PRN PO CONSTIPATION; Start 07/08/16 at 17:00 Pantoprazole 40 mg 40 mg DAILY@06 IV Last administered on 07/11/16 05:25; Admin Dose 40 MG; Start 07/09/16 at 06:00 Piperacillin Sod/ Tazobactam Sod (Zosyn 2.25gm/ 50ml (Pmx)) 50 ml @ 100 mls/hr Q8 IVPB Last administered on 07/11/16 05:30; Admin Dose 100 MLS/HR; Start 07/08 at 22:00 Carvedilol (Coreg) 25 mg BID PO Last administered on 07/10/16 20:36; Admin Dose 25 MG; Start 07/08/16 at 21:00 Duloxetine HCl (Cymbalta) 30 mg BID PO Last administered on 07/11/16 08:20; Admin Dose 30 MG; Start 07/08/16 at 21:00 Folic Acid (Folic Acid) 1 mg DAILY PO Last administered on 07/11/16 08:20; Admin Dose 1 MG; Start 07/09/16 at 09:00 Gabapentin (Neurontin) 300 mg QHS PO Last administered on 07/10/16 20:34; Admin Dose 300 MG; Start 07/08/16 at 21:00 Hydroxychloroquine Sulfate (Plaquenil) 300 mg DAILY PO Last administered on 08:20; Admin Dose 300 MG; Start 07/09/16 at 09:00 Multivit/Ca Carb/ B Cmplx/FA/Prenat (Teodora-Sarah) 1 tab DAILY PO Last administered on 07/11/16 08:20; Admin Dose 1 TAB; Start 07/09/16 at 09:00 Polyethylene Glycol (Miralax) 17 gm DAILY PO Last administered on 07/11/16 08: 20; Admin Dose 17 GM; Start 07/09/16 at 09:00 Prednisone (Prednisone) 5 mg DAILY PO Last administered on 07/11/16 08:20; Admin Dose 5 MG; Start 07/09/16 at 09:00 Atorvastatin Calcium 10 mg 10 mg DAILY@21 PO Last administered on 07/10/16 20: 34; Admin Dose 10 MG; Start 07/08/16 at 21:00 Dextrose/Sodium Chloride (D5-1/2ns) 1,000 ml @ 80 mls/hr [id number] IV Last administered on 07/11/16 03:12; Admin Dose 80 MLS/HR; Start 07/08/16 at 17:30 Hydromorphone HCl (Dilaudid) 1 mg Q2 PRN IV SEVERE PAIN LEVEL 7-10 Last administered on 07/09/16 12:36; Admin Dose 1 MG; Start 07/08/16 at 20:00 Acetaminophen/ Hydrocodone Bitart ([place] (5/325)) 1 tab Q6H PRN PO PAIN LEVEL 4 -7 Last administered on 07/10/16 19:14; Admin Dose 1 TAB; Start 07/09/16 at 14: 00 Acetaminophen/ Hydrocodone Bitart ([place] ()) 2 tab Q4H PRN PO PAIN Last administered on 07/11/16 03:25; Admin Dose 2 TAB; Start 07/09/16 at 20:30 Diphenhydramine HCl (Benadryl) 25 mg Q6H PRN PO ITCHING Last administered on 20:35; Admin Dose 25 MG; Start 07/09/16 at 20:30 KEYA SCHUSTER MD Jul 11, 2016 13:34
[2016-07-11] MEDS: HYDROCODONE/APAP (5/325) TAB PO PRN (17:21)
--- NOTE | 2016-07-11 17:36 | QN ---
Documentation Comment DATE: 07/09/2016 SUBJECTIVE: Feels weak. No appetite. No vomiting but minimal nausea. No f/c. No cp/sob. No cough. No harrell/dizzy/visual or neuro changes. No dysuria. Difficulty ambulating. No bowel function. Abdominal pain slowly improving. No abnormal discharge. PHYSICAL EXAMINATION: VITAL SIGNS: [facility] GENERAL: No acute distress. Somewhat uncomfortable and overweight. HEENT: Pupils equal, reactive. No scleral icterus. Mucous membranes somewhat dry. NECK: Supple, no JVD. No crepitus. Trachea midline. PULMONARY: Normal respiratory effort. No wheezing. HEART: S1, S2 present. ABDOMEN: Soft, tender mostly in the left lower quadrant without rebound, guarding, rigidity. EXTREMITIES: No edema. VASCULAR: Cap refill less than 2 seconds. NEUROLOGIC: Alert, oriented, moves all 4 extremities grossly. LABORATORY AND RADIOGRAPHIC: Noted ASSESSMENT AND PLAN: Ms. Maryanne Garnica is a 55-year-old female with multiple significant comorbidities. 1. Abdominal pain with CT findings of probable infection versus focal ischemia. CT angio without ischemia. Appreciate Vascular input. -antibiotics -supportive care. -anticoagulation -If not improving or worsening, may need surgical resection > otherwise will possibly bring back for elective resection in few months to minimize risk of open surgery and colostomy 2. Anemia without evidence of acute blood loss. Continue close observation. 3. Lupus. Continue medical optimization. 4. Fibromyalgia & Neuropathy. Continue medical management. 5. ESRD on HD 6. Hypoalbuminemia is multifactorial; however, will benefit from eventual nutritional optimization. Thank you, BALJEET SOTO MD Jul 11, 2016 17:36
--- NOTE | 2016-07-11 17:37 | QN ---
Documentation Comment DATE: 07/10/2016 SUBJECTIVE: Feels weak. No appetite. No vomiting but minimal nausea. Fevers but no chills. However feels better overall. No cp/sob. No cough. No harrell/dizzy/ visual or neuro changes. No dysuria. Difficulty ambulating. No bowel function. Abdominal pain slowly improving. No abnormal discharge. PHYSICAL EXAMINATION: VITAL SIGNS: AVSS GENERAL: No acute distress. Somewhat uncomfortable and overweight. HEENT: Pupils equal, reactive. No scleral icterus. Mucous membranes somewhat dry. NECK: Supple, no JVD. No crepitus. Trachea midline. PULMONARY: Normal respiratory effort. No wheezing. HEART: S1, S2 present. ABDOMEN: Soft, tender mostly in the left lower quadrant without rebound, guarding, rigidity. EXTREMITIES: No edema. VASCULAR: Cap refill less than 2 seconds. NEUROLOGIC: Alert, oriented, moves all 4 extremities grossly. LABORATORY AND RADIOGRAPHIC: Noted ASSESSMENT AND PLAN: Ms. Maryanne Garnica is a 55-year-old female with multiple significant comorbidities. 1. Abdominal pain with CT findings of probable infection versus focal ischemia. CT angio without ischemia. Appreciate Vascular input. -antibiotics -supportive care. -anticoagulation -If not improving or worsening, may need surgical resection > otherwise will possibly bring back for elective resection in few months to minimize risk of open surgery and colostomy 2. Anemia without evidence of acute blood loss. Continue close observation. 3. Lupus. Continue medical optimization. 4. Fibromyalgia & Neuropathy. Continue medical management. 5. ESRD on HD 6. Hypoalbuminemia is multifactorial; however, will benefit from eventual nutritional optimization. Thank you, BALJEET SOTO MD Jul 11, 2016 17:37
--- NOTE | 2016-07-11 17:40 | PN ---
Date/Time of Note Date/Time of Note DATE: 07/11/16 TIME: 17:37 Assessment/Plan Lines/Catheters IV Catheter Type (from [facility]): Saline Lock Styles in Place (from [facility]rs): No Assessment/Plan Chief Complaint/Hosp Course 1. Abdominal pain with CT findings of probable infection versus focal ischemia. CT angio without ischemia. Appreciate Vascular input. Improving. -antibiotics -supportive care. -anticoagulation -If not improving or worsening, may need surgical resection > otherwise will possibly bring back for elective resection in few months to minimize risk of open surgery and colostomy 2. Anemia without evidence of acute blood loss. Continue close observation. 3. Lupus. Continue medical optimization. 4. Fibromyalgia & Neuropathy. Continue medical management. 5. ESRD on HD 6. Hypoalbuminemia is multifactorial; however, will benefit from eventual nutritional optimization. Thank you, Problems: Subjective 24 Hr Interval Summary Fever resolved. No chills. Feels better overall. Hallucinations overnight. Feels weak. No appetite. No vomiting but minimal nausea. No cp/sob. No cough. No harrell/dizzy/visual or neuro changes. No dysuria. Difficulty ambulating. Flatus. Abdominal pain slowly improving. No abnormal discharge. Exam/Review of Systems Vital Signs Vitals Vital Signs Date Time Temp Pulse Resp B/P Pulse Ox O2 Delivery O2 Flow Rate FiO2 07/11/16 08:13 98.2 57 20 123/63 95 07/08/16 18:28 Room Air Intake and Output 07/10/16 07/10/16 07/11/16 15:00 23:00 07:00 Intake Total 640 ml 550 ml 350 ml Balance 640 ml 550 ml 350 ml Exam Free Text/Dictation GENERAL: No acute distress. Somewhat uncomfortable and overweight. HEENT: Pupils equal, reactive. No scleral icterus. Mucous membranes somewhat dry. NECK: Supple, no JVD. No crepitus. Trachea midline. PULMONARY: Normal respiratory effort. No wheezing. HEART: S1, S2 present. ABDOMEN: Soft, tender mostly in the left lower quadrant without rebound, guarding, rigidity. EXTREMITIES: No edema. VASCULAR: Cap refill less than 2 seconds. NEUROLOGIC: Alert, oriented, moves all 4 extremities grossly. Results Result Diagram: 07/11/16 0525 07/11/16 0525 BALJEET SOTO MD Jul 11, 2016 17:39
[2016-07-11 19:29] VITALS: BP 130/63; RESP 20
[2016-07-11] MEDS: GABAPENTIN 300 MG CAP PO SCH (20:55)
[2016-07-11] MEDS: ATORVASTATIN 10 MG TAB PO SCH (20:55)
[2016-07-11] MEDS: DIPHENHYDRAMINE 25 MG CAP PO PRN (21:01)
[2016-07-12] VITALS (10 sets, daily range): BP systolic 148–173; BP diastolic 68–89; PULSE 58–62; RESP 20
[2016-07-12] MEDS: ACETAMINOPHEN 325 MG TAB PO PRN ×4 (03:41→19:39)
[2016-07-12 06:05] LABS: BASOPHILS % 0.4 % (0.0-2.0); HEMOGLOBIN 9.4 g/dl (12.0-16.0); LYMPHOCYTES # 0.6 10^3/ul (0.8-2.9); LYMPHOCYTES % 7.5 % (15.0-51.0); MEAN CORPUSCULAR HEMOGLOBIN 34.7 pg (29.0-33.0); MEAN CORPUSCULAR HGB CONC 33.5 g/dl (32.0-37.0); MEAN CORPUSCULAR VOLUME 103.7 fl (82.0-101.0); MEAN PLATELET VOLUME 8.8 fl (7.4-10.4); MONOCYTE # 0.9 10^3/ul (0.3-0.9); NEUTROPHIL # 6.5 10^3/ul (1.6-7.5); NEUTROPHILS % 81.1 % (39.0-77.0); PLATELET COUNT 137 10^3/UL (140-440); RED CELL DISTRIBUTION WIDTH 15.3 % (11.5-14.5); UNCORRECTED WBC 8.1 10^3/ul (4.8-10.8); WHITE BLOOD COUNT 8.1 10^3/ul (4.8-10.8)
[2016-07-12 06:19] LABS: CONDITION 1; LH ANALYZER COMMENTS 1
[2016-07-12] MEDS: PIPER-TAZO 2.25 GM (PMX) 50 ML IVPB SCH ×3 (06:41→23:54)
[2016-07-12] MEDS: PANTOPRAZOLE 40 MG INJ IV SCH (06:41)
[2016-07-12 06:45] LABS: ALBUMIN 2.8 g/dl (3.3-4.9)
[2016-07-12 06:46] LABS: POTASSIUM 3.9 mmol/L (3.5-5.1)
[2016-07-12 06:48] LABS: CREATININE 8.66 mg/dl (0.44-1.00)
[2016-07-12 06:49] LABS: ALBUMIN/GLOBULIN RATIO 0.9; CALCIUM 9.3 mg/dl (8.4-10.2); TOTAL PROTEIN 5.9 g/dl (6.1-8.1)
[2016-07-12] MEDS: FOLIC ACID 1 MG TAB PO SCH (08:12)
[2016-07-12] MEDS: DULOXETINE 30 MG CAP DR PO SCH ×2 (08:12→23:53)
[2016-07-12] MEDS: HYDROXYCHLOROQUINE 200 MG TAB PO SCH (08:13)
[2016-07-12] MEDS: predniSONE 5 MG TAB PO SCH (08:13)
[2016-07-12] MEDS: POLYETHYLENE GLYCOL 17 GM PACKET PO SCH (08:13)
[2016-07-12] MEDS: CALCIUM ACETATE 667 MG CAP PO SCH ×3 (08:13→18:03)
[2016-07-12] MEDS: MULTIVIT/CA CARB/B CMPLX/FA TAB PO SCH (08:13)
--- NOTE | 2016-07-12 08:40 | CONS ---
Date/Time of Note Date/Time of Note DATE: 07/12/16 TIME: 08:37 Assessment/Plan Assessment/Plan Problems: (1) End stage renal disease on dialysis Status: Acute Comment: asx.. for HD today (2) Ischemic colitis Status: Acute Comment: perhaps sl better.. no T.. cont w nl WBC, but yeast distiller... hope to avoid surgery, but unclear if will be able to do so... will recheck CT abd/ pelvis c contrast Consultation Date/Type/Reason Admit Date/Time Jul 08, 2016 at 16:36 Type of Consultation: neph 24 HR Interval Summary Free Text/Dictation maybe sl better... pain after tried some food, tho Exam/Review of Systems Vital Signs Vitals Vital Signs Date Time Temp Pulse Resp B/P Pulse Ox O2 Delivery O2 Flow Rate FiO2 07/12/16 07:14 98.5 60 20 148/70 97 07/08/16 18:28 Room Air Intake and Output 07/11/16 07/11/16 07/12/16 15:00 23:00 07:00 Intake Total 700 ml 300 ml Output Total 400 ml Balance 300 ml 300 ml Exam Constitutional: alert, oriented Neck: supple Respiratory: clear to auscultation Cardiovascular: regular rate and rhythm Gastrointestinal: tender (a bit tender LLQ but clearly less than previously) Extremities: normal pulses Results Result Diagram: 07/12/16 0440 07/12/16 0414 Results 24 hrs Laboratory Tests Test 07/12/16 04:14 07/12/16 04:40 Alanine Aminotransferase (ALT/SGPT) 27 Albumin 2.8 L Albumin/Globulin Ratio 0.90 Alkaline Phosphatase 61 Anion Gap 21 H Aspartate Amino Transf (AST/SGOT) 26 Blood Urea Nitrogen 41 H Calcium Level 9.3 Carbon Dioxide Level 21 Chloride Level 99 Creatinine 8.66 H Direct Bilirubin 0.00 Globulin 3.10 Glucose Level 72 Indirect Bilirubin 0.0 Potassium Level 3.9 Sodium Level 137 Total Bilirubin 0.0 L Total Protein 5.9 L Basophils # 0.0 Basophils % 0.4 Blood Morphology Comment Eosinophils # 0.0 Eosinophils % 0.0 Hematocrit 28.0 L Hemoglobin 9.4 L Lymphocytes # 0.6 L Lymphocytes % 7.5 L Mean Corpuscular Hemoglobin 34.7 H Mean Corpuscular Hemoglobin Concent 33.5 Mean Corpuscular Volume 103.7 H Mean Platelet Volume 8.8 Monocytes # 0.9 Monocytes % 11.0 Neutrophils # 6.5 Neutrophils % 81.1 H Nucleated Red Blood Cells # 0.0 Nucleated Red Blood Cells % 0.0 Platelet Count 137 L Red Blood Count 2.70 L Red Cell Distribution Width 15.3 H White Blood Count 8.1 Medications Medications Current Medications Ondansetron HCl (Zofran Inj) 4 mg Q6H PRN IV NAUSEA AND/OR VOMITING Last administered on 07/12/16 07:04; Admin Dose 4 MG; Start 07/08/16 at 17:00 Acetaminophen (Tylenol Tab) 650 mg Q6H PRN PO PAIN LEVEL 1-3 OR FEVER Last administered on 07/12/16 03:41; Admin Dose 650 MG; Start 07/08/16 at 17:00 Docusate Sodium (Colace) 100 mg Q12H PRN PO CONSTIPATION; Start 07/08/16 at 17: 00 Bisacodyl (Dulcolax) 5 mg DAILY PRN PO CONSTIPATION; Start 07/08/16 at 17:00 Pantoprazole 40 mg 40 mg DAILY@06 IV Last administered on 07/12/16 06:41; Admin Dose 40 MG; Start 07/09/16 at 06:00 Piperacillin Sod/ Tazobactam Sod (Zosyn 2.25gm/ 50ml (Pmx)) 50 ml @ 100 mls/hr Q8 IVPB Last administered on 07/12/16 06:41; Admin Dose 100 MLS/HR; Start 07/08 at 22:00 Carvedilol (Coreg) 25 mg BID PO Last administered on 07/11/16 20:55; Admin Dose 25 MG; Start 07/08/16 at 21:00 Duloxetine HCl (Cymbalta) 30 mg BID PO Last administered on 07/12/16 08:12; Admin Dose 30 MG; Start 07/08/16 at 21:00 Folic Acid (Folic Acid) 1 mg DAILY PO Last administered on 07/12/16 08:12; Admin Dose 1 MG; Start 07/09/16 at 09:00 Gabapentin (Neurontin) 300 mg QHS PO Last administered on 07/11/16 20:55; Admin Dose 300 MG; Start 07/08/16 at 21:00 Hydroxychloroquine Sulfate (Plaquenil) 300 mg DAILY PO Last administered on 08:13; Admin Dose 300 MG; Start 07/09/16 at 09:00 Multivit/Ca Carb/ B Cmplx/FA/Prenat (Teodora-Sarah) 1 tab DAILY PO Last administered on 07/12/16 08:13; Admin Dose 1 TAB; Start 07/09/16 at 09:00 Polyethylene Glycol (Miralax) 17 gm DAILY PO Last administered on 07/12/16 08: 13; Admin Dose 17 GM; Start 07/09/16 at 09:00 Prednisone (Prednisone) 5 mg DAILY PO Last administered on 07/12/16 08:13; Admin Dose 5 MG; Start 07/09/16 at 09:00 Atorvastatin Calcium (Lipitor) 10 mg DAILY@21 PO Last administered on 20:55; Admin Dose 10 MG; Start 07/08/16 at 21:00 Hydromorphone HCl (Dilaudid) 1 mg Q2 PRN IV SEVERE PAIN LEVEL 7-10 Last administered on 07/09/16 12:36; Admin Dose 1 MG; Start 07/08/16 at 20:00 Acetaminophen/ Hydrocodone Bitart ([place] (5/325)) 1 tab Q6H PRN PO PAIN LEVEL 4 -7 Last administered on 07/11/16 17:21; Admin Dose 1 TAB; Start 07/09/16 at 14: 00 Acetaminophen/ Hydrocodone Bitart ([place] (10/325)) 2 tab Q4H PRN PO PAIN Last administered on 07/11/16 03:25; Admin Dose 2 TAB; Start 07/09/16 at 20:30 Diphenhydramine HCl (Benadryl) 25 mg Q6H PRN PO ITCHING Last administered on 21:01; Admin Dose 25 MG; Start 07/09/16 at 20:30 MARSHA LOPEZ MD Jul 12, 2016 08:39
[2016-07-12] MEDS ORDERED: BARIUM SULF 2% 450 ML BTL (BERRY SMOOTHIE) PO SCH (09:00)
[2016-07-12] MEDS ORDERED: SOD CHLORIDE 0.9% 100 ML ONE (11:31)
[2016-07-12] MEDS ORDERED: IOHEXOL 300MG/ML 150 ML BTL ONE (11:31)
[2016-07-12] MEDS ORDERED: HYDROCORTISONE 2.5% 30 GM RECT CR PR PRN (13:00)
[2016-07-12] MEDS: ONDANSETRON 4 MG INJ IV PRN ×2 (14:01→23:51)
--- NOTE | 2016-07-12 15:17 | RADRPT ---
PROCEDURE: CT scan of the abdomen and pelvis with and without IV contrast. CLINICAL INDICATION: Follow-up CT for evaluation of possible mesenteric ischemia and prior finding s of diverticulosis with mucosal thickening in the mid and distal descending colon. TECHNIQUE: Thin section axial, coronal and sagittal images were performed through the abdomen and pelvis without contrast and then following the injection of 100 cc of Isovue 370. Low-dose protocol imaging was utilized. One or more of the following dose reduction techniques were used: - Automated exposure control. - Adjustment of the mA and/or kV according to patient size. Use of iterative reconstruction technique. Radiation Dose: CTDI: 14:30 and DLP: 833.2 COMPARISON: CT scan performed 07/09/2016 of the abdomen pelvis. FINDINGS: Lungs and pleural space: There is a trace right pleural effusion developing since 07/09/2016. There is a 5 mm pleural-based pulmonary nodule in the right lower lobe which is unchanged. This may be t he result of a granuloma. There ground-glass infiltrates in the periphery of the lungs consistent w ith atelectasis from a poor inspiration. Heart: The heart is enlarged. The heart appears slightly larger when compared to the prior exam. Th ere are vascular calcifications in the coronary arteries. No pericardial effusion is identified. The liver, common bile duct and gallbladder: The liver is mildly enlarged measuring 16.5 cm AP. The re is a stable 1.4 cm cyst in the left lobe of the liver. No solid mass or intrahepatic biliary michael lily dilatation is identified. There is possible. The visualized milk of calcium or sludge in the g allbladder. If present, this would be better characterize with a abdominal sonogram. There is no ev idence of cholelithiasis or gallbladder wall thickening. Pancreas: Normal. The extrahepatic common bile duct is normal measuring 6.4 mm. Gastrointestinal: There is a small sliding hiatal hernia. This appears larger compared to the prior study. The stomach is otherwise unremarkable. The small bowel loops have a normal caliber. There is contrast fluid in the cecum and ascending colon. There is air in the transverse colon. There i s fluid and contrast material in the descending colon with thickening of the wall of the descending colon which was previously noted. There are associated diverticula. These findings may be the resul t of diverticulitis. Associated thickening due to carcinoma must be excluded with follow-up imaging for colonoscopy. There are additional diverticula in the sigmoid colon. There is moderate fluid in the pelvis without evidence of encapsulation. There is a small midline umbilical hernia. Kidneys and bladder : There are small smoothly marginated kidneys which contain small renal cyst miguel suring under a centimeter in size. There is stranding in the fat adjacent to both kidneys. There a re vascular calcifications in the right left renal arteries and their branches. There is no evidenc e of hydronephrosis. Adrenal glands: The adrenal glands are normal. Spleen: There are small stable benign lesions in the spleen. Largest measures 8.2 mm. [place]oun[place] u nits measure 47. There is a second 6 mm subcapsular lesion in the spleen which is unchanged. Small granulomas or cysts might present this fashion. Lymph nodes: Normal. Reproductive system: The uterus is normal. No abnormal adnexal masses are identified. Bony elements: There are degenerative changes in the thoracic and lumbosacral spine. Vasculature: The superior mesenteric vein and artery appear patent. There are vascular calcificatio ns in the peripheral arterial branches leading to the mucosal thickening in the descending colon luis daniel cribed above. There are vascular calcifications in the aorta, renal arteries, common iliac arteries as well as the internal and external iliac arteries. IMPRESSION: 1. Findings suspicious for acute diverticulitis of the descending colon without evidence of a diver ticular abscess. Follow-up imaging recommended to ensure no associated colonic neoplasm is present. Large bowel ischemia associated with diverticulosis might have a similar appearance surgical consul tation recommended. 2. Interval development of moderate free fluid in the pelvis since the prior exam. 3. Colonic ileus. 4. 1.4 cm left hepatic cyst. 5. There are to the lesions in the spleen which likely represent either splenic cyst or granulomas. These are unchanged. 6. Small right pleural effusion. 7. Stable 5 mm pulmonary nodule which may be the result of a granuloma in the medial aspect of the right lower lobe. 8. Cardiomegaly with atherosclerotic vascular disease involving the coronary arteries, abdominal ao rta and its branches. 9. Mild hepatomegaly. 10. Chronic medical renal disease with small smoothly marginated kidneys contain small benign appea ring cysts. 11. Small midline umbilical hernia. 12. Small hiatal hernia. 13. Findings were phoned to Dr. Bearden. RPTAT:[id number] Norm Lozano, Physician Date Time Electronically viewed and signed by Norm Lozano, Physician on 07/12/2016 15:16 /
--- NOTE | 2016-07-12 18:39 | PN ---
Date/Time of Note Date/Time of Note DATE: 07/12/16 TIME: 18:29 Assessment/Plan Lines/Catheters IV Catheter Type (from [facility]): Saline Lock Styles in Place (from [facility]): No Assessment/Plan Chief Complaint/Hosp Course 1. Abdominal pain with CT findings of probable infection versus focal ischemia. CT angio without ischemia. Appreciate Vascular input. Slowly improving. Repeat CT noted with contrast passing to rectum without leak. -antibiotics -supportive care. -anticoagulation -If not improving or worsening, may need surgical resection > otherwise will possibly bring back for elective resection in few months to minimize risk of open surgery and colostomy 2. Anemia without evidence of acute blood loss. Continue close observation. 3. Lupus. Continue medical optimization. 4. Fibromyalgia & Neuropathy. Continue medical management. 5. ESRD on HD 6. Hypoalbuminemia is multifactorial; however, will benefit from eventual nutritional optimization. Thank you, Problems: Subjective 24 Hr Interval Summary Repeat CT noted. Fever resolved. No chills. Feels better overall. Hallucinations persist. Feels weak. No appetite. No vomiting but minimal nausea. No cp/sob. No cough. No harrell/dizzy/visual or neuro changes. No dysuria. Difficulty ambulating. Flatus and bm. Abdominal pain slowly improving. No abnormal discharge. Exam/Review of Systems Vital Signs Vitals Vital Signs Date Time Temp Pulse Resp B/P Pulse Ox O2 Delivery O2 Flow Rate FiO2 07/12/16 07:14 98.5 60 20 148/70 97 07/08/16 18:28 Room Air Intake and Output 07/11/16 07/11/16 07/12/16 15:00 23:00 07:00 Intake Total 700 ml 300 ml Output Total 400 ml Balance 300 ml 300 ml Exam Free Text/Dictation GENERAL: No acute distress. Somewhat uncomfortable and overweight. HEENT: Pupils equal, reactive. No scleral icterus. Mucous membranes somewhat dry. NECK: Supple, no JVD. No crepitus. Trachea midline. PULMONARY: Normal respiratory effort. No wheezing. HEART: S1, S2 present. ABDOMEN: Soft, tender mostly in the left lower quadrant without rebound, guarding, rigidity. EXTREMITIES: No edema. VASCULAR: Cap refill less than 2 seconds. NEUROLOGIC: Alert, oriented, moves all 4 extremities grossly. Results Result Diagram: 07/12/16 0440 07/12/16 0414 Results Last [address]: 1. Findings suspicious for acute diverticulitis of the descending colon without evidence of a diverticular abscess. Follow-up imaging recommended to ensure no associated colonic neoplasm is present. Large bowel ischemia associated with diverticulosis might have a similar appearance surgical consultation recommended. 2. Interval development of moderate free fluid in the pelvis since the prior exam. 3. Colonic ileus. 4. 1.4 cm left hepatic cyst. 5. There are to the lesions in the spleen which likely represent either splenic cyst or granulomas. These are unchanged. 6. Small right pleural effusion. 7. Stable 5 mm pulmonary nodule which may be the result of a granuloma in the medial aspect of the right lower lobe. 8. Cardiomegaly with atherosclerotic vascular disease involving the coronary arteries, abdominal aorta and its branches. 9. Mild hepatomegaly. 10. Chronic medical renal disease with small smoothly marginated kidneys contain small benign appearing cysts. 11. Small midline umbilical hernia. 12. Small hiatal hernia. BALJEET SOTO MD Jul 12, 2016 18:39
[2016-07-12] MEDS: DIPHENHYDRAMINE 25 MG CAP PO PRN (19:39)
[2016-07-12] MEDS: ATORVASTATIN 10 MG TAB PO SCH (23:52)
[2016-07-12] MEDS: GABAPENTIN 300 MG CAP PO SCH (23:53)
[2016-07-13] MEDS: PIPER-TAZO 2.25 GM (PMX) 50 ML IVPB SCH ×3 (05:42→21:36)
[2016-07-13] MEDS: PANTOPRAZOLE 40 MG INJ IV SCH (05:42)
[2016-07-13] MEDS: ACETAMINOPHEN 325 MG TAB PO PRN (05:49)
[2016-07-13 06:00] LABS: BASOPHILS % 0.5 % (0.0-2.0); EOSINOPHILS % 0.1 % (0.0-7.0); HEMATOCRIT 28.5 % (37.0-47.0); HEMOGLOBIN 9.8 g/dl (12.0-16.0); LYMPHOCYTES # 0.4 10^3/ul (0.8-2.9); LYMPHOCYTES % 5.8 % (15.0-51.0); MEAN CORPUSCULAR HGB CONC 34.3 g/dl (32.0-37.0); MEAN PLATELET VOLUME 8.5 fl (7.4-10.4); MONOCYTES % 13.2 % (0.0-11.0); NEUTROPHIL # 5.8 10^3/ul (1.6-7.5); NEUTROPHILS % 80.4 % (39.0-77.0); PLATELET COUNT 158 10^3/UL (140-440); RED BLOOD COUNT 2.79 10^6/ul (4.20-5.40); RED CELL DISTRIBUTION WIDTH 14.9 % (11.5-14.5); UNCORRECTED WBC 7.2 10^3/ul (4.8-10.8); WHITE BLOOD COUNT 7.2 10^3/ul (4.8-10.8)
[2016-07-13 06:15] LABS: POTASSIUM 3.1 mmol/L (3.5-5.1)
[2016-07-13 06:16] LABS: INR 1.15; PROTIME 14.7 Sec (12.2-14.2); PT RATIO 1.1
[2016-07-13 06:17] LABS: BILIRUBIN,INDIRECT 0.1 mg/dl (0-1.1); BILIRUBIN,TOTAL 0.1 mg/dl (0.2-1.3); CREATININE 4.85 mg/dl (0.44-1.00)
[2016-07-13 06:18] LABS: ALBUMIN/GLOBULIN RATIO 0.9; CALCIUM 9.2 mg/dl (8.4-10.2); TOTAL PROTEIN 6.3 g/dl (6.1-8.1)
[2016-07-13 06:29] LABS: CONDITION 1; LH ANALYZER COMMENTS 1
[2016-07-13 07:26] VITALS: BP 183/81; RESP 18
--- NOTE | 2016-07-13 07:41 | CONS ---
Date/Time of Note Date/Time of Note DATE: 07/13/16 TIME: 07:37 Assessment/Plan Assessment/Plan Problems: (1) End stage renal disease on dialysis Status: Acute Comment: for HD in AM (2) Ischemic colitis Status: Acute Comment: remains w nl WBC and LFT's... less tender... no more T... but f/u CT yesterday showed some free fluid in the pelvis... need to discuss w dr Walden whether this is worrisome or not... remains on abx (3) HTN (hypertension) Comment: inactive (4) Hemorrhoid Comment: cream ordered together w laxatives for prn use Consultation Date/Type/Reason Admit Date/Time Jul 08, 2016 at 16:36 Type of Consultation: neph 24 HR Interval Summary Free Text/Dictation sleepy this am.. not get much sleep last night Exam/Review of Systems Vital Signs Vitals Vital Signs Date Time Temp Pulse Resp B/P Pulse Ox O2 Delivery O2 Flow Rate FiO2 07/13/16 07:26 98.8 62 18 183/81 95 Intake and Output 07/12/16 07/12/16 07/13/16 15:00 23:00 07:00 Intake Total 1010 ml 420 ml Output Total 3250 ml 200 ml Balance -2240 ml 220 ml Exam Psych: no complaints Cardiovascular: regular rate and rhythm Gastrointestinal: non-tender, soft Extremities: normal pulses (fxn LUE AVF) Results Result Diagram: 07/13/16 0509 07/13/16 0509 Results 24 hrs Laboratory Tests Test 07/12/16 09:28 07/13/16 05:09 Activated Partial Thromboplast Time 37.4 H Alanine Aminotransferase (ALT/SGPT) 27 Albumin 3.0 L Albumin/Globulin Ratio 0.90 Alkaline Phosphatase 70 Anion Gap 18 H Aspartate Amino Transf (AST/SGOT) 34 Basophils # 0.0 Basophils % 0.5 Blood Morphology Comment Blood Urea Nitrogen 20 # Calcium Level 9.2 Carbon Dioxide Level 29 Chloride Level 97 Creatinine 4.85 #H Direct Bilirubin 0.00 Eosinophils # 0.0 Eosinophils % 0.1 Globulin 3.30 H Glucose Level 80 Hematocrit 28.5 L Hemoglobin 9.8 L INR International Normalized Ratio 1.15 Indirect Bilirubin 0.1 Lymphocytes # 0.4 L Lymphocytes % 5.8 L Mean Corpuscular Hemoglobin 35.0 H Mean Corpuscular Hemoglobin Concent 34.3 Mean Corpuscular Volume 102.0 H Mean Platelet Volume 8.5 Monocytes # 1.0 H Monocytes % 13.2 H Neutrophils # 5.8 Neutrophils % 80.4 H Nucleated Red Blood Cells # 0.0 Nucleated Red Blood Cells % 0.0 Platelet Count 158 Potassium Level 3.1 L Prothrombin Time 14.7 H Prothrombin Time Ratio 1.1 Red Blood Count 2.79 L Red Cell Distribution Width 14.9 H Sodium Level 141 Total Bilirubin 0.1 L Total Protein 6.3 White Blood Count 7.2 Medications Medications Current Medications Acetaminophen (Tylenol Tab) 650 mg Q6H PRN PO PAIN LEVEL 1-3 OR FEVER Last administered on 07/13/16 05:49; Admin Dose 650 MG; Start 07/08/16 at 17:00 Docusate Sodium (Colace) 100 mg Q12H PRN PO CONSTIPATION; Start 07/08/16 at 17: 00 Bisacodyl (Dulcolax) 5 mg DAILY PRN PO CONSTIPATION; Start 07/08/16 at 17:00 Pantoprazole (Protonix Iv) 40 mg DAILY@06 IV Last administered on 07/13/16 05: 42; Admin Dose 40 MG; Start 07/09/16 at 06:00 Carvedilol (Coreg) 25 mg BID PO Last administered on 07/12/16 23:54; Admin Dose 25 MG; Start 07/08/16 at 21:00 Duloxetine HCl (Cymbalta) 30 mg BID PO Last administered on 07/12/16 23:53; Admin Dose 30 MG; Start 07/08/16 at 21:00 Folic Acid (Folic Acid) 1 mg DAILY PO Last administered on 07/12/16 08:12; Admin Dose 1 MG; Start 07/09/16 at 09:00 Gabapentin (Neurontin) 300 mg QHS PO Last administered on 07/12/16 23:53; Admin Dose 300 MG; Start 07/08/16 at 21:00 Hydroxychloroquine Sulfate (Plaquenil) 300 mg DAILY PO Last administered on 08:13; Admin Dose 300 MG; Start 07/09/16 at 09:00 Multivit/Ca Carb/ B Cmplx/FA/Prenat (Teodora-Sarah) 1 tab DAILY PO Last administered on 07/12/16 08:13; Admin Dose 1 TAB; Start 07/09/16 at 09:00 Polyethylene Glycol (Miralax) 17 gm DAILY PO Last administered on 07/12/16 08: 13; Admin Dose 17 GM; Start 07/09/16 at 09:00 Prednisone (Prednisone) 5 mg DAILY PO Last administered on 07/12/16 08:13; Admin Dose 5 MG; Start 07/09/16 at 09:00 Atorvastatin Calcium (Lipitor) 10 mg DAILY@21 PO Last administered on 23:52; Admin Dose 10 MG; Start 07/08/16 at 21:00 Hydromorphone HCl (Dilaudid) 1 mg Q2 PRN IV SEVERE PAIN LEVEL 7-10 Last administered on 07/09/16 12:36; Admin Dose 1 MG; Start 07/08/16 at 20:00 Acetaminophen/ Hydrocodone Bitart ([place] (5/325)) 1 tab Q6H PRN PO PAIN LEVEL 4 -7 Last administered on 07/11/16 17:21; Admin Dose 1 TAB; Start 07/09/16 at 14: 00 Acetaminophen/ Hydrocodone Bitart ([place] (10/325)) 2 tab Q4H PRN PO PAIN Last administered on 07/11/16 03:25; Admin Dose 2 TAB; Start 07/09/16 at 20:30 Diphenhydramine HCl 25 mg 25 mg Q6H PRN PO ITCHING Last administered on 19:39; Admin Dose 25 MG; Start 07/09/16 at 20:30 Piperacillin Sod/ Tazobactam Sod (Zosyn 2.25gm/ 50ml (Pmx)) 50 ml @ 100 mls/hr Q8 IVPB Last administered on 07/13/16 05:42; Admin Dose 100 MLS/HR; Start at 14:00 Ondansetron HCl (Zofran Inj) 4 mg Q4H PRN IV NAUSEA AND/OR VOMITING Last administered on 07/12/16 23:51; Admin Dose 4 MG; Start 07/12/16 at 13:00 Hydrocortisone (Proctozone-Hc) 1 applic BID PRN NM HEMORROID PAIN/ITCHING; Start 07/12/16 at 13:00 MARSHA LOPEZ MD Jul 13, 2016 07:40
[2016-07-13] MEDS ORDERED: HYDROCORTISONE 25 MG SUPP PR PRN (08:00)
[2016-07-13] MEDS ORDERED: SORBITOL 70% 30ML CUP PO PRN (08:00)
[2016-07-13] MEDS: CALCIUM ACETATE 667 MG CAP PO SCH ×4 (08:15→17:25)
[2016-07-13 09:40] VITALS: BP 181/89; PULSE 64
[2016-07-13] MEDS: predniSONE 5 MG TAB PO SCH (10:29)
[2016-07-13] MEDS: HYDROXYCHLOROQUINE 200 MG TAB PO SCH (10:29)
[2016-07-13] MEDS: FOLIC ACID 1 MG TAB PO SCH (10:30)
[2016-07-13] MEDS: POTASSIUM CHLORIDE (SR) 10 MEQ TAB PO SCH ×2 (10:30→21:28)
[2016-07-13] MEDS: POLYETHYLENE GLYCOL 17 GM PACKET PO SCH (10:30)
[2016-07-13] MEDS: MULTIVIT/CA CARB/B CMPLX/FA TAB PO SCH (10:30)
[2016-07-13] MEDS: DULOXETINE 30 MG CAP DR PO SCH ×2 (10:30→21:27)
[2016-07-13 10:41] VITALS: BP 178/79; PULSE 60
[2016-07-13] MEDS: ONDANSETRON 4 MG INJ IV PRN ×2 (12:34→21:29)
[2016-07-13 12:53] VITALS: BP 188/90; PULSE 70
[2016-07-13] MEDS: HYDROmorphONE 1 MG/ML SYG IV PRN (17:30)
--- NOTE | 2016-07-13 20:23 | PN ---
Date/Time of Note Date/Time of Note DATE: 07/13/16 TIME: 20:21 Assessment/Plan Lines/Catheters IV Catheter Type (from Nrs): Saline Lock Styles in Place (from [facility]): No Assessment/Plan Chief Complaint/Hosp Course 1. Abdominal pain with CT findings of probable infection. CT angio without ischemia. Appreciate Vascular input. Slowly improving. Repeat CT noted with contrast passing to rectum without leak. -antibiotics -supportive care. -anticoagulation -since continues to improve slowly, will continue with current treatment in order to avoid need for colostomy if I proceed with surgery at this time. 2. Anemia without evidence of acute blood loss. Continue close observation. 3. Lupus. Continue medical optimization. 4. Fibromyalgia & Neuropathy. Continue medical management. 5. ESRD on HD 6. Hypoalbuminemia is multifactorial; however, will benefit from eventual nutritional optimization. Thank you, Problems: Subjective 24 Hr Interval Summary No fever. No chills. Feels better overall. Feels weak. No appetite. No vomiting but minimal nausea. No cp/sob. No cough. No harrell/dizzy/visual or neuro changes. No dysuria. Difficulty ambulating. Flatus and bm. Exam/Review of Systems Vital Signs Vitals Vital Signs Date Time Temp Pulse Resp B/P Pulse Ox O2 Delivery O2 Flow Rate FiO2 07/13/16 12:53 70 188/90 07/13/16 07:26 98.8 18 95 Intake and Output 07/12/16 07/12/16 07/13/16 15:00 23:00 07:00 Intake Total 1010 ml 420 ml Output Total 3250 ml 200 ml Balance -2240 ml 220 ml Results Result Diagram: 07/13/16 0509 07/13/16 0509 BALJEET SOTO MD Jul 13, 2016 20:23
[2016-07-13 20:45] VITALS: BP 184/82; RESP 18
[2016-07-13 21:25] VITALS: BP 188/87; PULSE 67
[2016-07-13] MEDS: ATORVASTATIN 10 MG TAB PO SCH (21:28)
[2016-07-13] MEDS: GABAPENTIN 300 MG CAP PO SCH (21:28)
[2016-07-14] VITALS (12 sets, daily range): BP systolic 113–193; BP diastolic 60–81; PULSE 62–72; RESP 18
[2016-07-14] MEDS: PANTOPRAZOLE 40 MG INJ IV SCH (05:16)
[2016-07-14] MEDS: PIPER-TAZO 2.25 GM (PMX) 50 ML IVPB SCH ×3 (05:16→21:12)
[2016-07-14 06:50] LABS: ALBUMIN 2.8 g/dl (3.3-4.9)
[2016-07-14 06:51] LABS: POTASSIUM 3.6 mmol/L (3.5-5.1)
[2016-07-14 06:53] LABS: ALBUMIN/GLOBULIN RATIO 0.96; BASOPHILS % 0.1 % (0.0-2.0); CREATININE 6.35 mg/dl (0.44-1.00); EOSINOPHILS % 0.1 % (0.0-7.0); HEMATOCRIT 27.3 % (37.0-47.0); HEMOGLOBIN 9.1 g/dl (12.0-16.0); LYMPHOCYTES # 0.8 10^3/ul (0.8-2.9); LYMPHOCYTES % 11.6 % (15.0-51.0); MEAN CORPUSCULAR HEMOGLOBIN 34.5 pg (29.0-33.0); MEAN CORPUSCULAR HGB CONC 33.4 g/dl (32.0-37.0); MEAN CORPUSCULAR VOLUME 103.1 fl (82.0-101.0); MEAN PLATELET VOLUME 8.3 fl (7.4-10.4); MONOCYTE # 0.7 10^3/ul (0.3-0.9); MONOCYTES % 11.3 % (0.0-11.0); NEUTROPHIL # 5.1 10^3/ul (1.6-7.5); NEUTROPHILS % 76.9 % (39.0-77.0); PLATELET COUNT 162 10^3/UL (140-440); RED BLOOD COUNT 2.65 10^6/ul (4.20-5.40); RED CELL DISTRIBUTION WIDTH 15.6 % (11.5-14.5); TOTAL PROTEIN 5.7 g/dl (6.1-8.1); UNCORRECTED WBC 6.6 10^3/ul (4.8-10.8); WHITE BLOOD COUNT 6.6 10^3/ul (4.8-10.8)
[2016-07-14 06:54] LABS: CALCIUM 9.1 mg/dl (8.4-10.2)
--- NOTE | 2016-07-14 07:07 | CONS ---
Date/Time of Note Date/Time of Note DATE: 07/14/16 TIME: 07:05 Assessment/Plan Assessment/Plan Problems: (1) HTN (hypertension) Comment: will add procardia now (2) ESRD (end stage renal disease) on dialysis Comment: HD today (3) Ischemic colitis Status: Acute Comment: slow improvement w abx... will offer Nepro for kcal intake.. labs pd this am still Consultation Date/Type/Reason Admit Date/Time Jul 08, 2016 at 16:36 Type of Consultation: neph 24 HR Interval Summary Free Text/Dictation a bit better, but still w nausea.. less pain... no T Exam/Review of Systems Vital Signs Vitals Vital Signs Date Time Temp Pulse Resp B/P Pulse Ox O2 Delivery O2 Flow Rate FiO2 07/14/16 02:10 65 193/81 07/13/16 20:45 98.3 18 96 Intake and Output 07/13/16 07/13/16 07/14/16 15:00 23:00 07:00 Intake Total 340 ml 50 ml Balance 340 ml 50 ml Exam Constitutional: alert Psych: no complaints Respiratory: clear to auscultation Cardiovascular: regular rate and rhythm Gastrointestinal: nl liver, spleen, rebound or guarding (no rebound), soft Extremities: edema (no edema...fxn AVF) Results Result Diagram: 07/13/16 0509 07/14/16 0528 Results 24 hrs Laboratory Tests Test 07/14/16 05:28 Alanine Aminotransferase (ALT/SGPT) 26 Albumin 2.8 L Albumin/Globulin Ratio 0.96 Alkaline Phosphatase 56 Anion Gap 17 H Aspartate Amino Transf (AST/SGOT) 26 Blood Urea Nitrogen 31 #H Calcium Level 9.1 Carbon Dioxide Level 24 Chloride Level 99 Creatinine 6.35 H Direct Bilirubin 0.00 Globulin 2.90 Glucose Level 71 Indirect Bilirubin 0.0 Lactic Acid Level 0.7 Potassium Level 3.6 Sodium Level 136 Total Bilirubin 0.0 L Total Protein 5.7 L Medications Medications Current Medications Acetaminophen (Tylenol Tab) 650 mg Q6H PRN PO PAIN LEVEL 1-3 OR FEVER Last administered on 07/13/16t 05:49; Admin Dose 650 MG; Start 07/08/16 at 17:00 Docusate Sodium (Colace) 100 mg Q12H PRN PO CONSTIPATION; Start 07/08/16 at 17: 00 Bisacodyl (Dulcolax) 5 mg DAILY PRN PO CONSTIPATION; Start 07/08/16 at 17:00 Pantoprazole (Protonix Iv) 40 mg DAILY@06 IV Last administered on 07/14/16 05: 16; Admin Dose 40 MG; Start 07/09/16 at 06:00 Carvedilol (Coreg) 25 mg BID PO Last administered on 07/13/16 21:29; Admin Dose 25 MG; Start 07/08/16 at 21:00 Duloxetine HCl (Cymbalta) 30 mg BID PO Last administered on 07/13/16 21:27; Admin Dose 30 MG; Start 07/08/16 at 21:00 Folic Acid (Folic Acid) 1 mg DAILY PO Last administered on 07/13/16 10:30; Admin Dose 1 MG; Start 07/09/16 at 09:00 Gabapentin (Neurontin) 300 mg QHS PO Last administered on 07/13/16 21:28; Admin Dose 300 MG; Start 07/08/16 at 21:00 Hydroxychloroquine Sulfate (Plaquenil) 300 mg DAILY PO Last administered on 10:29; Admin Dose 300 MG; Start 07/09/16 at 09:00 Multivit/Ca Carb/ B Cmplx/FA/Prenat (Teodora-Sarah) 1 tab DAILY PO Last administered on 07/12/16 08:13; Admin Dose 1 TAB; Start 07/09/16 at 09:00 Polyethylene Glycol (Miralax) 17 gm DAILY PO Last administered on 07/13/16 10: 30; Admin Dose 17 GM; Start 07/09/16 at 09:00 Prednisone (Prednisone) 5 mg DAILY PO Last administered on 07/13/16 10:29; Admin Dose 5 MG; Start 07/09/16 at 09:00 Atorvastatin Calcium (Lipitor) 10 mg DAILY@21 PO Last administered on 21:28; Admin Dose 10 MG; Start 07/08/16 at 21:00 Hydromorphone HCl (Dilaudid) 1 mg Q2 PRN IV SEVERE PAIN LEVEL 7-10 Last administered on 07/13/16 17:30; Admin Dose 1 MG; Start 07/08/16 at 20:00 Acetaminophen/ Hydrocodone Bitart ([place] (5/325)) 1 tab Q6H PRN PO PAIN LEVEL 4 -7 Last administered on 07/11/16 17:21; Admin Dose 1 TAB; Start 07/09/16 at 14: 00 Acetaminophen/ Hydrocodone Bitart ([place] (10/325)) 2 tab Q4H PRN PO PAIN Last administered on 07/11/16 03:25; Admin Dose 2 TAB; Start 07/09/16 at 20:30 Diphenhydramine HCl 25 mg 25 mg Q6H PRN PO ITCHING Last administered on 19:39; Admin Dose 25 MG; Start 07/09/16 at 20:30 Piperacillin Sod/ Tazobactam Sod (Zosyn 2.25gm/ 50ml (Pmx)) 50 ml @ 100 mls/hr Q8 IVPB Last administered on 07/14/16 05:16; Admin Dose 100 MLS/HR; Start at 14:00 Ondansetron HCl (Zofran Inj) 4 mg Q4H PRN IV NAUSEA AND/OR VOMITING Last administered on 07/13/16 21:29; Admin Dose 4 MG; Start 07/12/16 at 13:00 Hydrocortisone (Proctozone-Hc) 1 applic BID PRN [place] HEMORROID PAIN/ITCHING Last administered on 07/13/16 22:09; Admin Dose 1 APPLIC; Start 07/12/16 at 13:00 Potassium Chloride (Klor-Con 10) 10 meq BID PO Last administered on 07/13/16 21:28; Admin Dose 10 MEQ; Start 07/13/16 at 09:00; Stop 07/14/16 at 09:00 Sorbitol (Sorbitol 70%) 30 ml Q6H PRN PO CONSTIPATION; Start 07/13/16 at 08:00 Hydrocortisone (Anusol-Hc Supp) 25 mg BID PRN [place] HEMORROID PAIN/ITCHING; Start 07/13/16 at 08:00 Clonidine (Catapres) 0.1 mg Q4H PRN PO SBP > 180 or DBP > 105 Last administered on 07/14/16 02:12; Admin Dose 0.1 MG; Start 07/13/16 at 12:00 MARSHA LOPEZ MD Jul 14, 2016 07:07
[2016-07-14 07:09] LABS: CONDITION 1; LH ANALYZER COMMENTS 1
[2016-07-14] MEDS: POLYETHYLENE GLYCOL 17 GM PACKET PO SCH (08:28)
[2016-07-14] MEDS: POTASSIUM CHLORIDE (SR) 10 MEQ TAB PO SCH (08:28)
[2016-07-14] MEDS: CALCIUM ACETATE 667 MG CAP PO SCH ×3 (08:29→17:46)
[2016-07-14] MEDS: MULTIVIT/CA CARB/B CMPLX/FA TAB PO SCH (08:29)
[2016-07-14] MEDS: DULOXETINE 30 MG CAP DR PO SCH ×2 (08:29→21:10)
[2016-07-14] MEDS: predniSONE 5 MG TAB PO SCH (08:29)
[2016-07-14] MEDS: NIFEdipine (XL) 30 MG TAB PO SCH (08:30)
[2016-07-14] MEDS: FOLIC ACID 1 MG TAB PO SCH (08:30)
[2016-07-14] MEDS: HYDROXYCHLOROQUINE 200 MG TAB PO SCH (08:31)
[2016-07-14] MEDS: ONDANSETRON 4 MG INJ IV PRN ×2 (08:34→21:10)
--- NOTE | 2016-07-14 17:11 | PN ---
Date/Time of Note Date/Time of Note DATE: 07/14/16 TIME: 17:10 Assessment/Plan Lines/Catheters IV Catheter Type (from [facility]): av fistula Styles in Place (from [facility]): No Assessment/Plan Chief Complaint/Hosp Course 1. Abdominal pain with CT findings of probable infection. CT angio without ischemia. Appreciate Vascular input. Slowly improving. Repeat CT noted with contrast passing to rectum without leak. -antibiotics -supportive care. -anticoagulation -since continues to improve slowly, will continue with current treatment in order to avoid need for colostomy if I proceed with surgery at this time. 2. Anemia without evidence of acute blood loss. Continue close observation. 3. Lupus. Continue medical optimization. 4. Fibromyalgia & Neuropathy. Continue medical management. 5. ESRD on HD 6. Hypoalbuminemia is multifactorial; however, will benefit from eventual nutritional optimization. Thank you, Problems: Subjective 24 Hr Interval Summary Low grade fever. No chills. Feels better overall. Feels weak. No appetite. No vomiting but minimal nausea. No cp/sob. No cough. No harrell/dizzy/visual or neuro changes. No dysuria. Difficulty ambulating. Flatus and bm. Abdominal pain slowly improving. No abnormal discharge. Exam/Review of Systems Vital Signs Vitals Vital Signs Date Time Temp Pulse Resp B/P Pulse Ox O2 Delivery O2 Flow Rate FiO2 07/14/16 16:00 65 16 07/14/16 07:19 99.5 171/80 97 Intake and Output 07/13/16 07/13/16 07/14/16 15:00 23:00 07:00 Intake Total 340 ml 50 ml Balance 340 ml 50 ml Exam Free Text/Dictation GENERAL: No acute distress. Somewhat uncomfortable and overweight. HEENT: Pupils equal, reactive. No scleral icterus. Mucous membranes somewhat dry. NECK: Supple, no JVD. No crepitus. Trachea midline. PULMONARY: Normal respiratory effort. No wheezing. HEART: S1, S2 present. ABDOMEN: Soft, tender mostly in the left lower quadrant without rebound, guarding, rigidity. EXTREMITIES: No edema. VASCULAR: Cap refill less than 2 seconds. NEUROLOGIC: Alert, oriented, moves all 4 extremities grossly. Results Result Diagram: 07/14/16 0528 07/14/16 0528 BALJEET SOTO MD Jul 14, 2016 17:11
[2016-07-14] MEDS: HYDROmorphONE 1 MG/ML SYG IV PRN ×2 (18:51→22:48)
[2016-07-14] MEDS: ATORVASTATIN 10 MG TAB PO SCH (21:11)
[2016-07-14] MEDS: GABAPENTIN 300 MG CAP PO SCH (21:11)
[2016-07-14] MEDS: RANITIDINE 150 MG TAB PO SCH (23:08)
[2016-07-15] MEDS: HYDROCODONE/APAP (10/325) TAB PO PRN ×2 (02:24→19:22)
[2016-07-15] MEDS: PIPER-TAZO 2.25 GM (PMX) 50 ML IVPB SCH ×3 (05:36→21:23)
[2016-07-15] MEDS: PANTOPRAZOLE 40 MG INJ IV SCH (05:36)
[2016-07-15 06:14] LABS: BASOPHILS % 0.1 % (0.0-2.0); HEMATOCRIT 32.7 % (37.0-47.0); HEMOGLOBIN 10.9 g/dl (12.0-16.0); LYMPHOCYTES # 0.7 10^3/ul (0.8-2.9); LYMPHOCYTES % 8.7 % (15.0-51.0); MEAN CORPUSCULAR HEMOGLOBIN 34.3 pg (29.0-33.0); MEAN CORPUSCULAR HGB CONC 33.3 g/dl (32.0-37.0); MEAN CORPUSCULAR VOLUME 103.1 fl (82.0-101.0); MEAN PLATELET VOLUME 8.3 fl (7.4-10.4); MONOCYTE # 0.5 10^3/ul (0.3-0.9); MONOCYTES % 6.9 % (0.0-11.0); NEUTROPHIL # 6.5 10^3/ul (1.6-7.5); NEUTROPHILS % 84.3 % (39.0-77.0); PLATELET COUNT 194 10^3/UL (140-440); RED BLOOD COUNT 3.17 10^6/ul (4.20-5.40); RED CELL DISTRIBUTION WIDTH 15.4 % (11.5-14.5); UNCORRECTED WBC 7.8 10^3/ul (4.8-10.8); WHITE BLOOD COUNT 7.8 10^3/ul (4.8-10.8)
[2016-07-15 06:18] LABS: CONDITION 1; LH ANALYZER COMMENTS 1
[2016-07-15 07:09] VITALS: BP 122/57; RESP 18
--- NOTE | 2016-07-15 08:27 | CONS ---
Date/Time of Note Date/Time of Note DATE: 07/15/16 TIME: 08:25 Assessment/Plan Assessment/Plan Problems: (1) End stage renal disease on dialysis Status: Acute Comment: amber HD... next HD in am and to cont q MWF (2) Ischemic colitis Status: Acute Comment: better... no T... nl WBC... no more abd tenderness...starting po... cont w the abx, and advance diet (3) HTN (hypertension) Comment: better w added agents Consultation Date/Type/Reason Admit Date/Time Jul 08, 2016 at 16:36 Type of Consultation: neph 24 HR Interval Summary Free Text/Dictation looks much better!.. i think she finally has turned the corner... (+) BM as well... taking liq OK Exam/Review of Systems Vital Signs Vitals Vital Signs Date Time Temp Pulse Resp B/P Pulse Ox O2 Delivery O2 Flow Rate FiO2 07/15/16 07:09 98.8 58 18 122/57 94 07/14/16 17:00 Room Air Intake and Output 07/14/16 07/14/16 07/15/16 15:00 23:00 07:00 Intake Total 50 ml 1160 ml 290 ml Output Total 2700 ml Balance 50 ml -1540 ml 290 ml Exam Constitutional: alert, oriented Neck: supple Respiratory: clear to auscultation Cardiovascular: regular rate and rhythm Extremities: normal pulses (fxn avf) Results Result Diagram: 07/15/16 0520 07/14/16 0528 Results 24 hrs Laboratory Tests Test 07/15/16 05:20 Basophils # 0.0 Basophils % 0.1 Blood Morphology Comment Eosinophils # 0.0 Eosinophils % 0.0 Hematocrit 32.7 L Hemoglobin 10.9 L Lymphocytes # 0.7 L Lymphocytes % 8.7 L Mean Corpuscular Hemoglobin 34.3 H Mean Corpuscular Hemoglobin Concent 33.3 Mean Corpuscular Volume 103.1 H Mean Platelet Volume 8.3 Monocytes # 0.5 Monocytes % 6.9 Neutrophils # 6.5 Neutrophils % 84.3 H Nucleated Red Blood Cells # 0.0 Nucleated Red Blood Cells % 0.0 Platelet Count 194 Red Blood Count 3.17 L Red Cell Distribution Width 15.4 H White Blood Count 7.8 Medications Medications Current Medications Acetaminophen (Tylenol Tab) 650 mg Q6H PRN PO PAIN LEVEL 1-3 OR FEVER Last administered on 07/13/16 05:49; Admin Dose 650 MG; Start 07/08/16 at 17:00 Docusate Sodium (Colace) 100 mg Q12H PRN PO CONSTIPATION; Start 07/08/16 at 17: 00 Bisacodyl (Dulcolax) 5 mg DAILY PRN PO CONSTIPATION; Start 07/08/16 at 17:00 Pantoprazole (Protonix Iv) 40 mg DAILY@06 IV Last administered on 07/15/16 05: 36; Admin Dose 40 MG; Start 07/09/16 at 06:00 Carvedilol (Coreg) 25 mg BID PO Last administered on 07/14/16 21:11; Admin Dose 25 MG; Start 07/08/16 at 21:00 Duloxetine HCl (Cymbalta) 30 mg BID PO Last administered on 07/14/16 21:10; Admin Dose 30 MG; Start 07/08/16 at 21:00 Folic Acid (Folic Acid) 1 mg DAILY PO Last administered on 07/14/16 08:30; Admin Dose 1 MG; Start 07/09/16 at 09:00 Gabapentin (Neurontin) 300 mg QHS PO Last administered on 07/14/16 21:11; Admin Dose 300 MG; Start 07/08/16 at 21:00 Hydroxychloroquine Sulfate (Plaquenil) 300 mg DAILY PO Last administered on 08:31; Admin Dose 300 MG; Start 07/09/16 at 09:00 Multivit/Ca Carb/ B Cmplx/FA/Prenat (Teodora-Sarah) 1 tab DAILY PO Last administered on 07/14/16 08:29; Admin Dose 1 TAB; Start 07/09/16 at 09:00 Polyethylene Glycol (Miralax) 17 gm DAILY PO Last administered on 07/14/16 08: 28; Admin Dose 17 GM; Start 07/09/16 at 09:00 Prednisone (Prednisone) 5 mg DAILY PO Last administered on 07/14/16 08:29; Admin Dose 5 MG; Start 07/09/16 at 09:00 Atorvastatin Calcium (Lipitor) 10 mg DAILY@21 PO Last administered on 21:11; Admin Dose 10 MG; Start 07/08/16 at 21:00 Hydromorphone HCl (Dilaudid) 1 mg Q2 PRN IV SEVERE PAIN LEVEL 7-10 Last administered on 07/14/16 22:48; Admin Dose 1 MG; Start 07/08/16 at 20:00 Acetaminophen/ Hydrocodone Bitart ([place] (5/325)) 1 tab Q6H PRN PO PAIN LEVEL 4 -7 Last administered on 07/11/16 17:21; Admin Dose 1 TAB; Start 07/09/16 at 14: 00 Acetaminophen/ Hydrocodone Bitart ([place] (10/325)) 2 tab Q4H PRN PO PAIN Last administered on 07/15/16 02:24; Admin Dose 2 TAB; Start 07/09/16 at 20:30 Diphenhydramine HCl 25 mg 25 mg Q6H PRN PO ITCHING Last administered on 19:39; Admin Dose 25 MG; Start 07/09/16 at 20:30 Piperacillin Sod/ Tazobactam Sod (Zosyn 2.25gm/ 50ml (Pmx)) 50 ml @ 100 mls/hr Q8 IVPB Last administered on 07/15/16 05:36; Admin Dose 100 MLS/HR; Start at 14:00 Ondansetron HCl (Zofran Inj) 4 mg Q4H PRN IV NAUSEA AND/OR VOMITING Last administered on 07/14/16 21:10; Admin Dose 4 MG; Start 07/12/16 at 13:00 Hydrocortisone (Proctozone-Hc) 1 applic BID PRN [place] HEMORROID PAIN/ITCHING Last administered on 07/13/16 22:09; Admin Dose 1 APPLIC; Start 07/12/16 at 13:00 Sorbitol (Sorbitol 70%) 30 ml Q6H PRN PO CONSTIPATION; Start 07/13/16 at 08:00 Hydrocortisone (Anusol-Hc Supp) 25 mg BID PRN [place] HEMORROID PAIN/ITCHING; Start 07/13/16 at 08:00 Clonidine (Catapres) 0.1 mg Q4H PRN PO SBP > 180 or DBP > 105 Last administered on 07/14/16 02:12; Admin Dose 0.1 MG; Start 07/13/16 at 12:00 Nifedipine (Procardia Xl) 30 mg DAILY PO Last administered on 07/14/16 08:30; Admin Dose 30 MG; Start 07/14/16 at 09:00 Ranitidine HCl (Zantac) 300 mg HS PO Last administered on 07/14/16 23:08; Admin Dose 300 MG; Start 07/14/16 at 23:00 MARSHA LOPEZ MD Jul 15, 2016 08:27
[2016-07-15] MEDS: POLYETHYLENE GLYCOL 17 GM PACKET PO SCH (09:00)
[2016-07-15] MEDS: HYDROXYCHLOROQUINE 200 MG TAB PO SCH (09:51)
[2016-07-15] MEDS: FOLIC ACID 1 MG TAB PO SCH (09:52)
[2016-07-15] MEDS: predniSONE 5 MG TAB PO SCH (09:52)
[2016-07-15] MEDS: DULOXETINE 30 MG CAP DR PO SCH ×2 (09:52→21:22)
[2016-07-15] MEDS: NIFEdipine (XL) 30 MG TAB PO SCH (09:52)
[2016-07-15] MEDS: MULTIVIT/CA CARB/B CMPLX/FA TAB PO SCH (09:52)
[2016-07-15] MEDS: CALCIUM ACETATE 667 MG CAP PO SCH ×3 (09:53→17:58)
[2016-07-15 19:59] VITALS: BP 129/62; RESP 20
[2016-07-15] MEDS: GABAPENTIN 300 MG CAP PO SCH (21:22)
[2016-07-15] MEDS: ATORVASTATIN 10 MG TAB PO SCH (21:22)
[2016-07-15] MEDS: RANITIDINE 150 MG TAB PO SCH (21:22)
[2016-07-16] VITALS (9 sets, daily range): BP systolic 119–166; BP diastolic 60–77; PULSE 69–72; RESP 20
[2016-07-16] MEDS: HYDROCODONE/APAP (10/325) TAB PO PRN ×2 (04:47→17:45)
[2016-07-16] MEDS: PANTOPRAZOLE 40 MG INJ IV SCH (06:07)
[2016-07-16] MEDS: PIPER-TAZO 2.25 GM (PMX) 50 ML IVPB SCH ×4 (06:07→21:16)
[2016-07-16 06:44] LABS: BASOPHILS % 0.6 % (0.0-2.0); EOSINOPHILS % 0.1 % (0.0-7.0); HEMATOCRIT 31.1 % (37.0-47.0); HEMOGLOBIN 10.4 g/dl (12.0-16.0); LYMPHOCYTES % 16.3 % (15.0-51.0); MEAN CORPUSCULAR HEMOGLOBIN 34.7 pg (29.0-33.0); MEAN CORPUSCULAR HGB CONC 33.5 g/dl (32.0-37.0); MEAN CORPUSCULAR VOLUME 103.8 fl (82.0-101.0); MEAN PLATELET VOLUME 8.7 fl (7.4-10.4); MONOCYTE # 0.8 10^3/ul (0.3-0.9); MONOCYTES % 13.1 % (0.0-11.0); NEUTROPHIL # 4.1 10^3/ul (1.6-7.5); NEUTROPHILS % 69.9 % (39.0-77.0); PLATELET COUNT 177 10^3/UL (140-440); RED CELL DISTRIBUTION WIDTH 15.5 % (11.5-14.5); UNCORRECTED WBC 5.9 10^3/ul (4.8-10.8); WHITE BLOOD COUNT 5.9 10^3/ul (4.8-10.8)
[2016-07-16 06:55] LABS: CONDITION 1; LH ANALYZER COMMENTS 1
[2016-07-16 07:56] LABS: CREATININE 5.68 mg/dl (0.44-1.00)
[2016-07-16 07:57] LABS: ALBUMIN/GLOBULIN RATIO 0.9; CALCIUM 9.1 mg/dl (8.4-10.2); TOTAL PROTEIN 6.3 g/dl (6.1-8.1)
[2016-07-16] MEDS ORDERED: POTASSIUM CHLORIDE (SR) 20 MEQ TAB PO STA (08:14)
--- NOTE | 2016-07-16 08:19 | PN ---
Date/Time of Note Date/Time of Note DATE: 07/16/16 TIME: 08:17 Assessment/Plan VTE Prophylaxis VTE Prophylaxis Intervention: SCD's, other Lines/Catheters IV Catheter Type (from Nrs): AV Fistula Urinary Cath still in place: No Assessment/Plan Assessment/Plan 1. Diverticulitis resolving on abx, I stopped laxatives for now given diarrhea and if this persists with ck c diff, await gen surgery follow up 2. CKD, will plan on HD today 3. Low K, will replete Subjective 24 Hr Interval Summary Cardiovascular: No chest pain, No lightheadedness Gastrointestinal: other (very loose stools with less lower abd pain) Genitourinary: no complaints Exam/Review of Systems Vital Signs Vitals Vital Signs Date Time Temp Pulse Resp B/P Pulse Ox O2 Delivery O2 Flow Rate FiO2 07/16/16 08:03 98.7 60 20 140/67 97 07/14/16 17:00 Room Air Intake and Output 07/15/16 07/15/16 07/16/16 15:00 23:00 07:00 Intake Total 940 ml 300 ml Balance 940 ml 300 ml Exam Neck: No jvd Respiratory: clear to auscultation Cardiovascular: regular rate and rhythm Gastrointestinal: soft (and mild lower abd tend bilat) Results Result Diagram: 07/16/16 0505 07/16/16 0505 Results 24 hrs Laboratory Tests Test 07/16/16 05:05 Alanine Aminotransferase (ALT/SGPT) 25 Albumin 3.0 L Albumin/Globulin Ratio 0.90 Alkaline Phosphatase 56 Anion Gap 18 H Aspartate Amino Transf (AST/SGOT) 39 Basophils # 0.0 Basophils % 0.6 Blood Morphology Comment Blood Urea Nitrogen 31 H Calcium Level 9.1 Carbon Dioxide Level 27 Chloride Level 95 L Creatinine 5.68 H Direct Bilirubin 0.00 Eosinophils # 0.0 Eosinophils % 0.1 Globulin 3.30 H Glucose Level 85 Hematocrit 31.1 L Hemoglobin 10.4 L Indirect Bilirubin 0.0 Lymphocytes # 1.0 Lymphocytes % 16.3 Mean Corpuscular Hemoglobin 34.7 H Mean Corpuscular Hemoglobin Concent 33.5 Mean Corpuscular Volume 103.8 H Mean Platelet Volume 8.7 Monocytes # 0.8 Monocytes % 13.1 H Neutrophils # 4.1 Neutrophils % 69.9 Nucleated Red Blood Cells # 0.0 Nucleated Red Blood Cells % 0.0 Platelet Count 177 Potassium Level 3.0 L Red Blood Count 3.00 L Red Cell Distribution Width 15.5 H Sodium Level 137 Total Bilirubin 0.0 L Total Protein 6.3 White Blood Count 5.9 # Medications Medications Current Medications Acetaminophen (Tylenol Tab) 650 mg Q6H PRN PO PAIN LEVEL 1-3 OR FEVER Last administered on 07/13/16 05:49; Admin Dose 650 MG; Start 07/08/16 at 17:00 Docusate Sodium (Colace) 100 mg Q12H PRN PO CONSTIPATION; Start 07/08/16 at 17: 00 Bisacodyl (Dulcolax) 5 mg DAILY PRN PO CONSTIPATION; Start 07/08/16 at 17:00 Pantoprazole (Protonix Iv) 40 mg DAILY@06 IV Last administered on 07/16/16 06: 07; Admin Dose 40 MG; Start 07/09/16 at 06:00 Carvedilol (Coreg) 25 mg BID PO Last administered on 07/15/16 21:23; Admin Dose 25 MG; Start 07/08/16 at 21:00 Duloxetine HCl (Cymbalta) 30 mg BID PO Last administered on 07/15/16 21:22; Admin Dose 30 MG; Start 07/08/16 at 21:00 Folic Acid (Folic Acid) 1 mg DAILY PO Last administered on 07/15/16 09:52; Admin Dose 1 MG; Start 07/09/16 at 09:00 Gabapentin (Neurontin) 300 mg QHS PO Last administered on 07/15/16 21:22; Admin Dose 300 MG; Start 07/08/16 at 21:00 Hydroxychloroquine Sulfate (Plaquenil) 300 mg DAILY PO Last administered on 09:51; Admin Dose 300 MG; Start 07/09/16 at 09:00 Multivit/Ca Carb/ B Cmplx/FA/Prenat (Teodora-Sarah) 1 tab DAILY PO Last administered on 07/15/16 09:52; Admin Dose 1 TAB; Start 07/09/16 at 09:00 Polyethylene Glycol (Miralax) 17 gm DAILY PO Last administered on 07/14/16 08: 28; Admin Dose 17 GM; Start 07/09/16 at 09:00 Prednisone (Prednisone) 5 mg DAILY PO Last administered on 07/15/16 09:52; Admin Dose 5 MG; Start 07/09/16 at 09:00 Atorvastatin Calcium (Lipitor) 10 mg DAILY@21 PO Last administered on 21:22; Admin Dose 10 MG; Start 07/08/16 at 21:00 Hydromorphone HCl (Dilaudid) 1 mg Q2 PRN IV SEVERE PAIN LEVEL 7-10 Last administered on 07/14/16 22:48; Admin Dose 1 MG; Start 07/08/16 at 20:00 Acetaminophen/ Hydrocodone Bitart ([place] (5/325)) 1 tab Q6H PRN PO PAIN LEVEL 4 -7 Last administered on 07/11/16 17:21; Admin Dose 1 TAB; Start 07/09/16 at 14: 00 Acetaminophen/ Hydrocodone Bitart ([place] (10/325)) 2 tab Q4H PRN PO PAIN Last administered on 07/16/16 04:47; Admin Dose 2 TAB; Start 07/09/16 at 20:30 Diphenhydramine HCl 25 mg 25 mg Q6H PRN PO ITCHING Last administered on 19:39; Admin Dose 25 MG; Start 07/09/16 at 20:30 Piperacillin Sod/ Tazobactam Sod (Zosyn 2.25gm/ 50ml (Pmx)) 50 ml @ 100 mls/hr Q8 IVPB Last administered on 07/16/16 06:07; Admin Dose 100 MLS/HR; Start at 14:00 Ondansetron HCl (Zofran Inj) 4 mg Q4H PRN IV NAUSEA AND/OR VOMITING Last administered on 07/14/16 21:10; Admin Dose 4 MG; Start 07/12/16 at 13:00 Hydrocortisone (Proctozone-Hc) 1 applic BID PRN [place] HEMORROID PAIN/ITCHING Last administered on 07/13/16 22:09; Admin Dose 1 APPLIC; Start 07/12/16 at 13:00 Sorbitol (Sorbitol 70%) 30 ml Q6H PRN PO CONSTIPATION; Start 07/13/16 at 08:00 Hydrocortisone (Anusol-Hc Supp) 25 mg BID PRN [place] HEMORROID PAIN/ITCHING; Start 07/13/16 at 08:00 Clonidine (Catapres) 0.1 mg Q4H PRN PO SBP > 180 or DBP > 105 Last administered on 07/14/16 02:12; Admin Dose 0.1 MG; Start 07/13/16 at 12:00 Nifedipine (Procardia Xl) 30 mg DAILY PO Last administered on 07/15/16 09:52; Admin Dose 30 MG; Start 07/14/16 at 09:00 Ranitidine HCl (Zantac) 300 mg HS PO Last administered on 07/15/16 21:22; Admin Dose 300 MG; Start 07/14/16 at 23:00 MECHELLE JOSÉ MD Jul 16, 2016 08:19
[2016-07-16] MEDS: NIFEdipine (XL) 30 MG TAB PO SCH (08:54)
[2016-07-16] MEDS: FOLIC ACID 1 MG TAB PO SCH (09:28)
[2016-07-16] MEDS: HYDROXYCHLOROQUINE 200 MG TAB PO SCH (09:29)
[2016-07-16] MEDS: CALCIUM ACETATE 667 MG CAP PO SCH ×3 (09:29→17:44)
[2016-07-16] MEDS: DULOXETINE 30 MG CAP DR PO SCH ×2 (09:29→21:17)
[2016-07-16] MEDS: predniSONE 5 MG TAB PO SCH (09:29)
[2016-07-16] MEDS: MULTIVIT/CA CARB/B CMPLX/FA TAB PO SCH (09:29)
[2016-07-16] MEDS: HYDROCODONE/APAP (5/325) TAB PO PRN (16:05)
[2016-07-16] MEDS: ONDANSETRON 4 MG INJ IV PRN (16:35)
--- NOTE | 2016-07-16 19:58 | PN ---
Date/Time of Note Date/Time of Note DATE: 07/15/16 TIME: 19:55 Assessment/Plan Lines/Catheters IV Catheter Type (from Nrs): AV FISTULA Styles in Place (from Nrs): No Assessment/Plan Chief Complaint/Hosp Course 1. Abdominal pain with CT findings of probable infection. CT angio without ischemia. Appreciate Vascular input. Slowly improving. Repeat CT noted with contrast passing to rectum without leak. Improving -antibiotics -supportive care. -anticoagulation -diet as tolerated 2. Anemia without evidence of acute blood loss. Continue close observation. 3. Lupus. Continue medical optimization. 4. Fibromyalgia & Neuropathy. Continue medical management. 5. ESRD on HD 6. Hypoalbuminemia is multifactorial; however, will benefit from eventual nutritional optimization. Thank you, Late entry 07/15 Problems: Subjective 24 Hr Interval Summary No fever. No chills. Feels better overall. Feels weak. No vomiting but minimal nausea. No cp/sob. No cough. No harrell/dizzy/visual or neuro changes. No dysuria. Flatus and bm. Abdominal pain improved. Exam/Review of Systems Vital Signs Vitals Vital Signs Date Time Temp Pulse Resp B/P Pulse Ox O2 Delivery O2 Flow Rate FiO2 07/16/16 14:10 70 18 07/16/16 08:03 98.7 140/67 97 07/14/16 17:00 Room Air Intake and Output 07/15/16 07/15/16 07/16/16 15:00 23:00 07:00 Intake Total 940 ml 300 ml Balance 940 ml 300 ml Exam Free Text/Dictation GENERAL: No acute distress. Somewhat uncomfortable and overweight. HEENT: Pupils equal, reactive. No scleral icterus. Mucous membranes somewhat dry. NECK: Supple, no JVD. No crepitus. Trachea midline. PULMONARY: Normal respiratory effort. No wheezing. HEART: S1, S2 present. ABDOMEN: Soft, NT, ND, no rebound, guarding, nor rigidity. EXTREMITIES: No edema. VASCULAR: Cap refill less than 2 seconds. NEUROLOGIC: Alert, oriented, moves all 4 extremities grossly. Results Result Diagram: 07/16/16 0505 07/16/16 0505 BALJEET SOTO MD Jul 16, 2016 19:58
--- NOTE | 2016-07-16 19:59 | PN ---
Date/Time of Note Date/Time of Note DATE: 07/16/16 TIME: 19:58 Assessment/Plan Lines/Catheters IV Catheter Type (from Nrs): AV FISTULA Styles in Place (from Nrs): No Assessment/Plan Chief Complaint/Hosp Course 1. Abdominal pain with CT findings of probable infection. CT angio without ischemia. Appreciate Vascular input. Slowly improving. Repeat CT noted with contrast passing to rectum without leak. Improving -antibiotics -supportive care. -anticoagulation -diet as tolerated 2. Anemia without evidence of acute blood loss. Continue close observation. 3. Lupus. Continue medical optimization. 4. Fibromyalgia & Neuropathy. Continue medical management. 5. ESRD on HD 6. Hypoalbuminemia is multifactorial; however, will benefit from eventual nutritional optimization. Thank you, Problems: Subjective 24 Hr Interval Summary No fever. No chills. Feels better overall. Feels weak. No vomiting but minimal nausea. No cp/sob. No cough. No harrell/dizzy/visual or neuro changes. No dysuria. Flatus and multiple loose bms. Abdominal pain improved. Exam/Review of Systems Vital Signs Vitals Vital Signs Date Time Temp Pulse Resp B/P Pulse Ox O2 Delivery O2 Flow Rate FiO2 07/16/16 14:10 70 18 07/16/16 08:03 98.7 140/67 97 07/14/16 17:00 Room Air Intake and Output 07/15/16 07/15/16 07/16/16 15:00 23:00 07:00 Intake Total 940 ml 300 ml Balance 940 ml 300 ml Exam Free Text/Dictation GENERAL: No acute distress. Somewhat uncomfortable and overweight. HEENT: Pupils equal, reactive. No scleral icterus. Mucous membranes somewhat dry. NECK: Supple, no JVD. No crepitus. Trachea midline. PULMONARY: Normal respiratory effort. No wheezing. HEART: S1, S2 present. ABDOMEN: Soft, NT, ND, no rebound, guarding, nor rigidity. EXTREMITIES: No edema. VASCULAR: Cap refill less than 2 seconds. NEUROLOGIC: Alert, oriented, moves all 4 extremities grossly. Results Result Diagram: 07/16/16 0505 07/16/16 0505 BALJEET SOTO MD Jul 16, 2016 19:59
[2016-07-16] MEDS: ATORVASTATIN 10 MG TAB PO SCH (21:17)
[2016-07-16] MEDS: GABAPENTIN 300 MG CAP PO SCH (21:17)
[2016-07-16] MEDS: RANITIDINE 150 MG TAB PO SCH (21:17)
[2016-07-17 05:48] LABS: BASOPHILS % 0.2 % (0.0-2.0); HEMATOCRIT 34.3 % (37.0-47.0); HEMOGLOBIN 11.3 g/dl (12.0-16.0); LYMPHOCYTES # 1.3 10^3/ul (0.8-2.9); LYMPHOCYTES % 19.9 % (15.0-51.0); MEAN CORPUSCULAR HEMOGLOBIN 34.3 pg (29.0-33.0); MEAN CORPUSCULAR HGB CONC 32.9 g/dl (32.0-37.0); MEAN CORPUSCULAR VOLUME 104.2 fl (82.0-101.0); MEAN PLATELET VOLUME 8.6 fl (7.4-10.4); MONOCYTE # 0.6 10^3/ul (0.3-0.9); MONOCYTES % 8.8 % (0.0-11.0); NEUTROPHIL # 4.6 10^3/ul (1.6-7.5); NEUTROPHILS % 71.1 % (39.0-77.0); PLATELET COUNT 171 10^3/UL (140-440); RED BLOOD COUNT 3.29 10^6/ul (4.20-5.40); RED CELL DISTRIBUTION WIDTH 16.1 % (11.5-14.5); UNCORRECTED WBC 6.5 10^3/ul (4.8-10.8); WHITE BLOOD COUNT 6.5 10^3/ul (4.8-10.8)
[2016-07-17 06:01] LABS: CONDITION 1; LH ANALYZER COMMENTS 1
[2016-07-17 06:06] LABS: POTASSIUM 4.5 mmol/L (3.5-5.1)
[2016-07-17 06:08] LABS: CREATININE 4.55 mg/dl (0.44-1.00)
[2016-07-17 06:09] LABS: PHOSPHORUS 3.5 mg/dl (2.5-4.9)
[2016-07-17] MEDS: PANTOPRAZOLE 40 MG INJ IV SCH (06:16)
[2016-07-17] MEDS: PIPER-TAZO 2.25 GM (PMX) 50 ML IVPB SCH ×3 (06:54→21:37)
[2016-07-17 08:12] VITALS: BP 178/81; RESP 16
[2016-07-17] MEDS: CALCIUM ACETATE 667 MG CAP PO SCH ×3 (08:34→18:53)
[2016-07-17] MEDS: DULOXETINE 30 MG CAP DR PO SCH ×2 (08:34→21:36)
[2016-07-17] MEDS: predniSONE 5 MG TAB PO SCH (08:34)
[2016-07-17] MEDS: MULTIVIT/CA CARB/B CMPLX/FA TAB PO SCH (08:34)
[2016-07-17] MEDS: FOLIC ACID 1 MG TAB PO SCH (08:35)
[2016-07-17] MEDS: NIFEdipine (XL) 30 MG TAB PO SCH (08:35)
[2016-07-17] MEDS: HYDROXYCHLOROQUINE 200 MG TAB PO SCH (08:35)
[2016-07-17] MEDS: HYDROmorphONE 1 MG/ML SYG IV PRN (08:38)
--- NOTE | 2016-07-17 10:13 | PN ---
Date/Time of Note Date/Time of Note DATE: 07/17/16 TIME: 10:11 Assessment/Plan VTE Prophylaxis VTE Prophylaxis Intervention: other Lines/Catheters IV Catheter Type (from Nrsg): AV Fistula Urinary Cath still in place: No Assessment/Plan Assessment/Plan 1. Diverticultitis, on abx 2. C diff present, will start po flagyl and culturelle, ID to see 3. CKD, plan on next HD tuesday Subjective 24 Hr Interval Summary Respiratory: No shortness of breath Cardiovascular: No chest pain Gastrointestinal: diarrhea, other (mild lower abd pain) Genitourinary: dysuria Exam/Review of Systems Vital Signs Vitals Vital Signs Date Time Temp Pulse Resp B/P Pulse Ox O2 Delivery O2 Flow Rate FiO2 07/17/16 08:12 98.6 72 16 178/81 100 07/14/16 17:00 Room Air Intake and Output 07/16/16 07/16/16 07/17/16 15:00 23:00 07:00 Intake Total 500 ml 1100 ml Output Total 3500 ml Balance -3000 ml 1100 ml Exam Neck: No jvd Respiratory: clear to auscultation Cardiovascular: regular rate and rhythm Gastrointestinal: other (sl distension, min lower abd tend) Results Result Diagram: 07/17/16 0455 07/17/16 0455 Results 24 hrs Laboratory Tests Test 07/17/16 04:55 Anion Gap 20 H Basophils # 0.0 Basophils % 0.2 Blood Morphology Comment Blood Urea Nitrogen 16 # Calcium Level 10.0 Carbon Dioxide Level 17 #L Chloride Level 111 H Creatinine 4.55 #H Eosinophils # 0.0 Eosinophils % 0.0 Glucose Level 70 Hematocrit 34.3 L Hemoglobin 11.3 L Lymphocytes # 1.3 Lymphocytes % 19.9 Mean Corpuscular Hemoglobin 34.3 H Mean Corpuscular Hemoglobin Concent 32.9 Mean Corpuscular Volume 104.2 H Mean Platelet Volume 8.6 Monocytes # 0.6 Monocytes % 8.8 Neutrophils # 4.6 Neutrophils % 71.1 Nucleated Red Blood Cells # 0.0 Nucleated Red Blood Cells % 0.0 Phosphorus Level 3.5 Platelet Count 171 Potassium Level 4.5 Red Blood Count 3.29 L Red Cell Distribution Width 16.1 H Sodium Level 143 White Blood Count 6.5 Medications Medications Current Medications Acetaminophen (Tylenol Tab) 650 mg Q6H PRN PO PAIN LEVEL 1-3 OR FEVER Last administered on 2/14/17at 05:49; Admin Dose 650 MG; Start 07/08/16 at 17:00 Docusate Sodium (Colace) 100 mg Q12H PRN PO CONSTIPATION; Start 07/08/16 at 17: 00 Pantoprazole (Protonix Iv) 40 mg DAILY@06 IV Last administered on 07/17/16 06: 16; Admin Dose 40 MG; Start 07/09/16 at 06:00 Carvedilol (Coreg) 25 mg BID PO Last administered on 07/17/16 08:35; Admin Dose 25 MG; Start 07/08/16 at 21:00 Duloxetine HCl (Cymbalta) 30 mg BID PO Last administered on 07/17/16 08:34; Admin Dose 30 MG; Start 07/08/16 at 21:00 Folic Acid (Folic Acid) 1 mg DAILY PO Last administered on 07/17/16 08:35; Admin Dose 1 MG; Start 07/09/16 at 09:00 Gabapentin (Neurontin) 300 mg QHS PO Last administered on 07/16/16 21:17; Admin Dose 300 MG; Start 07/08/16 at 21:00 Hydroxychloroquine Sulfate (Plaquenil) 300 mg DAILY PO Last administered on 08:35; Admin Dose 300 MG; Start 07/09/16 at 09:00 Multivit/Ca Carb/ B Cmplx/FA/Prenat ([place]od[place]-Sarah) 1 tab DAILY PO Last administered on 07/17/16 08:34; Admin Dose 1 TAB; Start 07/09/16 at 09:00 Prednisone (Prednisone) 5 mg DAILY PO Last administered on 07/17/16 08:34; Admin Dose 5 MG; Start 07/09/16 at 09:00 Atorvastatin Calcium (Lipitor) 10 mg DAILY@21 PO Last administered on 21:17; Admin Dose 10 MG; Start 07/08/16 at 21:00 Hydromorphone HCl (Dilaudid) 1 mg Q2 PRN IV SEVERE PAIN LEVEL 7-10 Last administered on 07/17/16 08:38; Admin Dose 1 MG; Start 07/08/16 at 20:00 Acetaminophen/ Hydrocodone Bitart ([place] (5/325)) 1 tab Q6H PRN PO PAIN LEVEL 4 -7 Last administered on 07/16/16 16:05; Admin Dose 1 TAB; Start 07/09/16 at 14: 00 Acetaminophen/ Hydrocodone Bitart ([place] ()) 2 tab Q4H PRN PO PAIN Last administered on 07/16/16 17:45; Admin Dose 2 TAB; Start 07/09/16 at 20:30 Diphenhydramine HCl 25 mg 25 mg Q6H PRN PO ITCHING Last administered on 19:39; Admin Dose 25 MG; Start 07/09/16 at 20:30 Piperacillin Sod/ Tazobactam Sod (Zosyn 2.25gm/ 50ml (Pmx)) 50 ml @ 100 mls/hr Q8 IVPB Last administered on 07/17/16 06:54; Admin Dose 100 MLS/HR; Start at 14:00 Ondansetron HCl (Zofran Inj) 4 mg Q4H PRN IV NAUSEA AND/OR VOMITING Last administered on 07/16/16 16:35; Admin Dose 4 MG; Start 07/12/16 at 13:00 Hydrocortisone (Proctozone-Hc) 1 applic BID PRN [place] HEMORROID PAIN/ITCHING Last administered on 07/13/16 22:09; Admin Dose 1 APPLIC; Start 07/12/16 at 13:00 Hydrocortisone (Anusol-Hc Supp) 25 mg BID PRN [place] HEMORROID PAIN/ITCHING; Start 07/13/16 at 08:00 Clonidine (Catapres) 0.1 mg Q4H PRN PO SBP > 180 or DBP > 105 Last administered on 07/14/16 02:12; Admin Dose 0.1 MG; Start 07/13/16 at 12:00 Nifedipine (Procardia Xl) 30 mg DAILY PO Last administered on 07/17/16 08:35; Admin Dose 30 MG; Start 07/14/16 at 09:00 Ranitidine HCl (Zantac) 300 mg HS PO Last administered on 07/16/16 21:17; Admin Dose 300 MG; Start 07/14/16 at 23:00 MECHELLE JOSÉ MD Jul 17, 2016 10:13
[2016-07-17] MEDS: LACTOBACILLUS RHAMNOSUS CAP PO SCH ×2 (12:27→21:36)
[2016-07-17] MEDS: metroNIDAZOLE 500 MG TAB PO SCH ×2 (13:57→21:49)
--- NOTE | 2016-07-17 19:43 | PN ---
Date/Time of Note Date/Time of Note DATE: 07/17/16 TIME: 19:42 Assessment/Plan Lines/Catheters IV Catheter Type (from Nrs): AV FISTULA Styles in Place (from Nrs): No Assessment/Plan Chief Complaint/Hosp Course 1. Abdominal pain with CT findings of probable infection. CT angio without ischemia. Appreciate Vascular input. Repeat CT noted with contrast passing to rectum without leak. +CDiff. Improving -antibiotics -supportive care. -anticoagulation -diet as tolerated 2. Anemia without evidence of acute blood loss. Continue close observation. 3. Lupus. Continue medical optimization. 4. Fibromyalgia & Neuropathy. Continue medical management. 5. ESRD on HD 6. Hypoalbuminemia is multifactorial; however, will benefit from eventual nutritional optimization. Thank you, Problems: Subjective 24 Hr Interval Summary +CDiff. No fever. No chills. Feels better overall. Feels weak. No vomiting but minimal nausea. No cp/sob. No cough. No harrell/dizzy/visual or neuro changes. No dysuria. Flatus and multiple loose bms. Abdominal pain improved. Exam/Review of Systems Vital Signs Vitals Vital Signs Date Time Temp Pulse Resp B/P Pulse Ox O2 Delivery O2 Flow Rate FiO2 07/17/16 08:12 98.6 72 16 178/81 100 07/14/16 17:00 Room Air Intake and Output 07/16/16 07/16/16 07/17/16 15:00 23:00 07:00 Intake Total 500 ml 1100 ml Output Total 3500 ml Balance -3000 ml 1100 ml Exam Free Text/Dictation GENERAL: No acute distress. Overweight. HEENT: Pupils equal, reactive. No scleral icterus. Mucous membranes somewhat dry. NECK: Supple, no JVD. No crepitus. Trachea midline. PULMONARY: Normal respiratory effort. No wheezing. HEART: S1, S2 present. ABDOMEN: Soft, NT, ND, no rebound, guarding, nor rigidity. EXTREMITIES: No edema. VASCULAR: Cap refill less than 2 seconds. NEUROLOGIC: Alert, oriented, moves all 4 extremities grossly. Results Result Diagram: 07/17/16 0455 07/17/16 0455 BALJEET SOTO MD Jul 17, 2016 19:43
[2016-07-17 20:26] VITALS: BP 149/68; RESP 16
[2016-07-17] MEDS: RANITIDINE 150 MG TAB PO SCH (21:36)
[2016-07-17] MEDS: GABAPENTIN 300 MG CAP PO SCH (21:36)
[2016-07-17] MEDS: ATORVASTATIN 10 MG TAB PO SCH (21:36)
[2016-07-17] MEDS: HYDROCODONE/APAP (10/325) TAB PO PRN (21:49)
[2016-07-18 05:53] LABS: HEMOGLOBIN 10.1 g/dl (12.0-16.0); LYMPHOCYTES # 1.5 10^3/ul (0.8-2.9); LYMPHOCYTES % 24.5 % (15.0-51.0); MEAN CORPUSCULAR HEMOGLOBIN 34.4 pg (29.0-33.0); MEAN CORPUSCULAR HGB CONC 33.6 g/dl (32.0-37.0); MEAN CORPUSCULAR VOLUME 102.6 fl (82.0-101.0); MEAN PLATELET VOLUME 8.8 fl (7.4-10.4); MONOCYTE # 0.6 10^3/ul (0.3-0.9); NEUTROPHILS % 65.5 % (39.0-77.0); PLATELET COUNT 146 10^3/UL (140-440); RED BLOOD COUNT 2.92 10^6/ul (4.20-5.40); RED CELL DISTRIBUTION WIDTH 15.2 % (11.5-14.5)
[2016-07-18 06:02] LABS: CONDITION 1; LH ANALYZER COMMENTS 1
[2016-07-18] MEDS: metroNIDAZOLE 500 MG TAB PO SCH ×3 (06:02→21:03)
[2016-07-18] MEDS: PANTOPRAZOLE 40 MG INJ IV SCH (06:02)
[2016-07-18] MEDS: PIPER-TAZO 2.25 GM (PMX) 50 ML IVPB SCH (06:02)
[2016-07-18 06:03] LABS: POTASSIUM 3.8 mmol/L (3.5-5.1)
[2016-07-18 06:05] LABS: CREATININE 6.62 mg/dl (0.44-1.00)
[2016-07-18 06:06] LABS: CALCIUM 10.1 mg/dl (8.4-10.2)
[2016-07-18 07:55] VITALS: BP 154/69; RESP 16
[2016-07-18] MEDS: predniSONE 5 MG TAB PO SCH (08:34)
[2016-07-18] MEDS: FOLIC ACID 1 MG TAB PO SCH (08:34)
[2016-07-18] MEDS: MULTIVIT/CA CARB/B CMPLX/FA TAB PO SCH (08:34)
[2016-07-18] MEDS: HYDROXYCHLOROQUINE 200 MG TAB PO SCH (08:34)
[2016-07-18] MEDS: DULOXETINE 30 MG CAP DR PO SCH ×2 (08:34→21:03)
[2016-07-18] MEDS: NIFEdipine (XL) 30 MG TAB PO SCH (08:34)
[2016-07-18] MEDS: CALCIUM ACETATE 667 MG CAP PO SCH ×3 (08:35→17:51)
[2016-07-18] MEDS: LACTOBACILLUS RHAMNOSUS CAP PO SCH ×2 (08:35→21:03)
--- NOTE | 2016-07-18 10:16 | CONS ---
Date/Time of Note Date/Time of Note DATE: 07/18/16 TIME: 10:10 Assessment/Plan Assessment/Plan Chief Complaint/Hosp Course 1) diverticulitis with possible intermittent bowel ischemia pt has received 10 days of zosyn which should be sufficient no fever and normal WBC and no increase in neutrophils d/c zosyn 2) c.dif present not sure this is a true infection but she has some abd pain and watery to mushy stools continue with flagyl for a 10 day course will check IgG level 3) ESRD 4) HTN Problems: Consultation Date/Type/Reason Admit Date/Time Jul 08, 2016 at 16:36 Date of Consultation: Jul 18, 2016 Type of Consultation: ID Hx of Present Illness pt came in on 07/08/16 due to progressive abd pain and constipation she denies F, C, NS. She has been on zosyn since 07/08 no N, V. No cough, SOB, dysphagia She had some loose stools a couple of days ago but now it is mushy no cramping with BM's Respiratory: No shortness of breath Cardiovascular: No chest pain Gastrointestinal: diarrhea, other (mild lower abd pain) Genitourinary: dysuria Psychological: no complaints Past Medical History ESRD, HTN, hyperlipidemia, SLE, mild thrombocytopenia Past Surgical History AV fistula, R shoulder repair Past Surgical Hx: other Social History Smoking Status: Former smoker Exam/Review of Systems Vital Signs Vitals Vital Signs Date Time Temp Pulse Resp B/P Pulse Ox O2 Delivery O2 Flow Rate FiO2 07/18/16 07:55 98.7 70 16 154/69 99 07/14/16 17:00 Room Air Intake and Output 07/17/16 07/17/16 07/18/16 15:00 23:00 07:00 Intake Total 50 ml 730 ml 750 ml Balance 50 ml 730 ml 750 ml Exam Constitutional: alert, oriented Head: normocephalic Eyes: nl conjunctiva Respiratory: clear to auscultation Cardiovascular: regular rate and rhythm Gastrointestinal: other (tender to L mid abd, no rebound), soft Extremities: other (no swelling or pain) Neurological: other (non focal) Results Result Diagram: 07/18/1642107/18/16 042 Results 24 hrs Laboratory Tests Test 07/18/16 04:22 Anion Gap 19 H Basophils # 0.0 Basophils % 0.0 Blood Morphology Comment Blood Urea Nitrogen 29 #H Calcium Level 10.1 Carbon Dioxide Level 17 L Chloride Level 107 Creatinine 6.62 #H Eosinophils # 0.0 Eosinophils % 0.0 Glucose Level 79 Hematocrit 30.0 L Hemoglobin 10.1 L Lymphocytes # 1.5 Lymphocytes % 24.5 Mean Corpuscular Hemoglobin 34.4 H Mean Corpuscular Hemoglobin Concent 33.6 Mean Corpuscular Volume 102.6 H Mean Platelet Volume 8.8 Monocytes # 0.6 Monocytes % 10.0 Neutrophils # 4.0 Neutrophils % 65.5 Nucleated Red Blood Cells # 0.0 Nucleated Red Blood Cells % 0.0 Platelet Count 146 Potassium Level 3.8 Red Blood Count 2.92 L Red Cell Distribution Width 15.2 H Sodium Level 139 White Blood Count 6.0 Medications Medications Current Medications Acetaminophen (Tylenol Tab) 650 mg Q6H PRN PO PAIN LEVEL 1-3 OR FEVER Last administered on 07/13/16 05:49; Admin Dose 650 MG; Start 07/08/16 at 17:00 Docusate Sodium (Colace) 100 mg Q12H PRN PO CONSTIPATION; Start 07/08/16 at 17: 00 Pantoprazole (Protonix Iv) 40 mg DAILY@06 IV Last administered on 07/18/16 06: 02; Admin Dose 40 MG; Start 07/09/16 at 06:00 Carvedilol (Coreg) 25 mg BID PO Last administered on 07/18/16 08:35; Admin Dose 25 MG; Start 07/08/16 at 21:00 Duloxetine HCl (Cymbalta) 30 mg BID PO Last administered on 07/18/16 08:34; Admin Dose 30 MG; Start 07/08/16 at 21:00 Folic Acid (Folic Acid) 1 mg DAILY PO Last administered on 07/18/16 08:34; Admin Dose 1 MG; Start 07/09/16 at 09:00 Gabapentin (Neurontin) 300 mg QHS PO Last administered on 07/17/16 21:36; Admin Dose 300 MG; Start 07/08/16 at 21:00 Hydroxychloroquine Sulfate (Plaquenil) 300 mg DAILY PO Last administered on 08:34; Admin Dose 300 MG; Start 07/09/16 at 09:00 Multivit/Ca Carb/ B Cmplx/FA/Prenat (Teodora-Sarah) 1 tab DAILY PO Last administered on 07/18/16 08:34; Admin Dose 1 TAB; Start 07/09/16 at 09:00 Prednisone (Prednisone) 5 mg DAILY PO Last administered on 07/18/16 08:34; Admin Dose 5 MG; Start 07/09/16 at 09:00 Atorvastatin Calcium (Lipitor) 10 mg DAILY@21 PO Last administered on 21:36; Admin Dose 10 MG; Start 07/08/16 at 21:00 Hydromorphone HCl (Dilaudid) 1 mg Q2 PRN IV SEVERE PAIN LEVEL 7-10 Last administered on 07/17/16 08:38; Admin Dose 1 MG; Start 07/08/16 at 20:00 Acetaminophen/ Hydrocodone Bitart ([place] (5/325)) 1 tab Q6H PRN PO PAIN LEVEL 4 -7 Last administered on 07/16/16 16:05; Admin Dose 1 TAB; Start 07/09/16 at 14: 00 Acetaminophen/ Hydrocodone Bitart ([place] (10/325)) 2 tab Q4H PRN PO PAIN Last administered on 07/17/16 21:49; Admin Dose 2 TAB; Start 07/09/16 at 20:30 Diphenhydramine HCl (Benadryl) 25 mg Q6H PRN PO ITCHING Last administered on 19:39; Admin Dose 25 MG; Start 07/09/16 at 20:30 Ondansetron HCl (Zofran Inj) 4 mg Q4H PRN IV NAUSEA AND/OR VOMITING Last administered on 07/16/16 16:35; Admin Dose 4 MG; Start 07/12/16 at 13:00 Hydrocortisone (Proctozone-Hc) 1 applic BID PRN [place] HEMORROID PAIN/ITCHING Last administered on 07/13/16 22:09; Admin Dose 1 APPLIC; Start 07/12/16 at 13:00 Hydrocortisone (Anusol-Hc Supp) 25 mg BID PRN [place] HEMORROID PAIN/ITCHING; Start 07/13/16 at 08:00 Clonidine (Catapres) 0.1 mg Q4H PRN PO SBP > 180 or DBP > 105 Last administered on 07/14/16 02:12; Admin Dose 0.1 MG; Start 07/13/16 at 12:00 Nifedipine (Procardia Xl) 30 mg DAILY PO Last administered on 07/18/16 08:34; Admin Dose 30 MG; Start 07/14/16 at 09:00 Ranitidine HCl (Zantac) 300 mg HS PO Last administered on 07/17/16 21:36; Admin Dose 300 MG; Start 07/14/16 at 23:00 Metronidazole (Flagyl) 500 mg Q8 PO Last administered on 07/18/16 06:02; Admin Dose 500 MG; Start 07/17/16 at 14:00 Lactobacillus Acidophilus/ Rhamnosus (Culturelle) 1 cap BID PO Last administered on 07/18/16 08:35; Admin Dose 1 CAP; Start 07/17/16 at 10:30 GARIMA RYDER MD Jul 18, 2016 10:16
--- NOTE | 2016-07-18 10:32 | PN ---
Date/Time of Note Date/Time of Note DATE: 07/18/16 TIME: 10:30 Assessment/Plan VTE Prophylaxis VTE Prophylaxis Intervention: other Lines/Catheters IV Catheter Type (from Nrsg): AV Fistula Urinary Cath still in place: No Assessment/Plan Assessment/Plan 1. Diverticulitis resolving, rev with ID, abx stopped 2. C diff, flagyl started yesterday along with culturelle 3. CKD, to have HD tomm Subjective 24 Hr Interval Summary Respiratory: No shortness of breath Cardiovascular: No chest pain Gastrointestinal: other (2 loose stools late yesterday, abd pain is less) Genitourinary: no complaints Exam/Review of Systems Vital Signs Vitals Vital Signs Date Time Temp Pulse Resp B/P Pulse Ox O2 Delivery O2 Flow Rate FiO2 07/18/16 07:55 98.7 70 16 154/69 99 07/14/16 17:00 Room Air Intake and Output 07/17/16 07/17/16 07/18/16 15:00 23:00 07:00 Intake Total 50 ml 730 ml 750 ml Balance 50 ml 730 ml 750 ml Exam Neck: No jvd Respiratory: clear to auscultation Cardiovascular: regular rate and rhythm Gastrointestinal: other (mild lower abd tend bilat), soft Extremities: No edema Results Result Diagram: 07/18/1642107/18/16 0422 Results 24 hrs Laboratory Tests Test 07/18/16 04:22 Anion Gap 19 H Basophils # 0.0 Basophils % 0.0 Blood Morphology Comment Blood Urea Nitrogen 29 #H Calcium Level 10.1 Carbon Dioxide Level 17 L Chloride Level 107 Creatinine 6.62 #H Eosinophils # 0.0 Eosinophils % 0.0 Glucose Level 79 Hematocrit 30.0 L Hemoglobin 10.1 L Lymphocytes # 1.5 Lymphocytes % 24.5 Mean Corpuscular Hemoglobin 34.4 H Mean Corpuscular Hemoglobin Concent 33.6 Mean Corpuscular Volume 102.6 H Mean Platelet Volume 8.8 Monocytes # 0.6 Monocytes % 10.0 Neutrophils # 4.0 Neutrophils % 65.5 Nucleated Red Blood Cells # 0.0 Nucleated Red Blood Cells % 0.0 Platelet Count 146 Potassium Level 3.8 Red Blood Count 2.92 L Red Cell Distribution Width 15.2 H Sodium Level 139 White Blood Count 6.0 Medications Medications Current Medications Acetaminophen (Tylenol Tab) 650 mg Q6H PRN PO PAIN LEVEL 1-3 OR FEVER Last administered on 07/13/16 05:49; Admin Dose 650 MG; Start 07/08/16 at 17:00 Docusate Sodium (Colace) 100 mg Q12H PRN PO CONSTIPATION; Start 07/08/16 at 17: 00 Pantoprazole (Protonix Iv) 40 mg DAILY@06 IV Last administered on 07/18/16 06: 02; Admin Dose 40 MG; Start 07/09/16 at 06:00 Carvedilol (Coreg) 25 mg BID PO Last administered on 07/18/16 08:35; Admin Dose 25 MG; Start 07/08/16 at 21:00 Duloxetine HCl (Cymbalta) 30 mg BID PO Last administered on 07/18/16 08:34; Admin Dose 30 MG; Start 07/08/16 at 21:00 Folic Acid (Folic Acid) 1 mg DAILY PO Last administered on 07/18/16 08:34; Admin Dose 1 MG; Start 07/09/16 at 09:00 Gabapentin (Neurontin) 300 mg QHS PO Last administered on 07/17/16 21:36; Admin Dose 300 MG; Start 07/08/16 at 21:00 Hydroxychloroquine Sulfate (Plaquenil) 300 mg DAILY PO Last administered on 08:34; Admin Dose 300 MG; Start 07/09/16 at 09:00 Multivit/Ca Carb/ B Cmplx/FA/Prenat (Teodora-Sarah) 1 tab DAILY PO Last administered on 07/18/16 08:34; Admin Dose 1 TAB; Start 07/09/16 at 09:00 Prednisone (Prednisone) 5 mg DAILY PO Last administered on 07/18/16 08:34; Admin Dose 5 MG; Start 07/09/16 at 09:00 Atorvastatin Calcium (Lipitor) 10 mg DAILY@21 PO Last administered on 21:36; Admin Dose 10 MG; Start 07/08/16 at 21:00 Hydromorphone HCl (Dilaudid) 1 mg Q2 PRN IV SEVERE PAIN LEVEL 7-10 Last administered on 07/17/16 08:38; Admin Dose 1 MG; Start 07/08/16 at 20:00 Acetaminophen/ Hydrocodone Bitart ([place] (5/325)) 1 tab Q6H PRN PO PAIN LEVEL 4 -7 Last administered on 07/16/16 16:05; Admin Dose 1 TAB; Start 07/09/16 at 14: 00 Acetaminophen/ Hydrocodone Bitart ([place] (325)) 2 tab Q4H PRN PO PAIN Last administered on 07/17/16 21:49; Admin Dose 2 TAB; Start 07/09/16 at 20:30 Diphenhydramine HCl (Benadryl) 25 mg Q6H PRN PO ITCHING Last administered on 19:39; Admin Dose 25 MG; Start 07/09/16 at 20:30 Ondansetron HCl (Zofran Inj) 4 mg Q4H PRN IV NAUSEA AND/OR VOMITING Last administered on 07/16/16 16:35; Admin Dose 4 MG; Start 07/12/16 at 13:00 Hydrocortisone (Proctozone-Hc) 1 applic BID PRN [place] HEMORROID PAIN/ITCHING Last administered on 07/13/16 22:09; Admin Dose 1 APPLIC; Start 07/12/16 at 13:00 Hydrocortisone (Anusol-Hc Supp) 25 mg BID PRN [place] HEMORROID PAIN/ITCHING; Start 07/13/16 at 08:00 Clonidine (Catapres) 0.1 mg Q4H PRN PO SBP > 180 or DBP > 105 Last administered on 07/14/16 02:12; Admin Dose 0.1 MG; Start 07/13/16 at 12:00 Nifedipine (Procardia Xl) 30 mg DAILY PO Last administered on 07/18/16 08:34; Admin Dose 30 MG; Start 07/14/16 at 09:00 Ranitidine HCl (Zantac) 300 mg HS PO Last administered on 07/17/16 21:36; Admin Dose 300 MG; Start 07/14/16 at 23:00 Metronidazole (Flagyl) 500 mg Q8 PO Last administered on 07/18/16 06:02; Admin Dose 500 MG; Start 07/17/16 at 14:00 Lactobacillus Acidophilus/ Rhamnosus (Culturelle) 1 cap BID PO Last administered on 07/18/16 08:35; Admin Dose 1 CAP; Start 07/17/16 at 10:30 MECHELLE JOSÉ MD Jul 18, 2016 10:32
[2016-07-18] MEDS: HYDROmorphONE 1 MG/ML SYG IV PRN (12:28)
[2016-07-18] MEDS: ONDANSETRON 4 MG INJ IV PRN (12:32)
[2016-07-18 19:14] VITALS: BP 132/63; RESP 16
[2016-07-18] MEDS: GABAPENTIN 300 MG CAP PO SCH (21:03)
[2016-07-18] MEDS: RANITIDINE 150 MG TAB PO SCH (21:03)
[2016-07-18] MEDS: ATORVASTATIN 10 MG TAB PO SCH (21:03)
[2016-07-18] MEDS: HYDROCODONE/APAP (5/325) TAB PO PRN (21:04)
[2016-07-18] MEDS: HYDROCODONE/APAP (10/325) TAB PO PRN (23:27)
--- NOTE | 2016-07-18 23:40 | PN ---
Date/Time of Note Date/Time of Note DATE: 07/18/16 TIME: 23:39 Assessment/Plan Lines/Catheters IV Catheter Type (from Nrs): AV FISTULA Styles in Place (from Nrs): No Assessment/Plan Chief Complaint/Hosp Course 1. Abdominal pain with CT findings of probable infection. CT angio without ischemia. Appreciate Vascular input. Repeat CT noted with contrast passing to rectum without leak. +CDiff. Improving -antibiotics -supportive care. -anticoagulation -diet as tolerated 2. Anemia without evidence of acute blood loss. Continue close observation. 3. Lupus. Continue medical optimization. 4. Fibromyalgia & Neuropathy. Continue medical management. 5. ESRD on HD 6. Hypoalbuminemia is multifactorial; however, will benefit from eventual nutritional optimization. Thank you, Problems: Subjective 24 Hr Interval Summary +CDiff. No fever. No chills. Feels better overall. No vomiting but minimal nausea. No cp/sob. No cough. No harrell/dizzy/visual or neuro changes. No dysuria. Flatus and bms. Abdominal pain improved. Exam/Review of Systems Vital Signs Vitals Vital Signs Date Time Temp Pulse Resp B/P Pulse Ox O2 Delivery O2 Flow Rate FiO2 07/18/16 19:14 98.4 69 16 132/63 95 07/14/16 17:00 Room Air Intake and Output 07/17/16 07/17/16 07/18/16 15:00 23:00 07:00 Intake Total 50 ml 730 ml 750 ml Balance 50 ml 730 ml 750 ml Exam Free Text/Dictation GENERAL: No acute distress. Overweight. HEENT: Pupils equal, reactive. No scleral icterus. Mucous membranes somewhat dry. NECK: Supple, no JVD. No crepitus. Trachea midline. PULMONARY: Normal respiratory effort. No wheezing. HEART: S1, S2 present. ABDOMEN: Soft, NT, ND, no rebound, guarding, nor rigidity. EXTREMITIES: No edema. VASCULAR: Cap refill less than 2 seconds. NEUROLOGIC: Alert, oriented, moves all 4 extremities grossly. SKIN: No jaundice Results Result Diagram: 07/18/1642107/18/16421 BALJEET SOTO MD Jul 18, 2016 23:40
[2016-07-19] VITALS (10 sets, daily range): BP systolic 120–176; BP diastolic 70–80; PULSE 63–78; RESP 18
[2016-07-19] MEDS: metroNIDAZOLE 500 MG TAB PO SCH ×3 (05:38→21:19)
[2016-07-19] MEDS: PANTOPRAZOLE 40 MG INJ IV SCH (05:38)
[2016-07-19 06:38] LABS: ALBUMIN 3.2 g/dl (3.3-4.9)
[2016-07-19 06:40] LABS: CREATININE 8.61 mg/dl (0.44-1.00)
[2016-07-19 06:41] LABS: ALBUMIN/GLOBULIN RATIO 1.06; CALCIUM 10.5 mg/dl (8.4-10.2); TOTAL PROTEIN 6.2 g/dl (6.1-8.1)
[2016-07-19 07:15] LABS: BASOPHILS % 0.1 % (0.0-2.0); EOSINOPHILS % 0.1 % (0.0-7.0); HEMATOCRIT 29.8 % (37.0-47.0); HEMOGLOBIN 10.1 g/dl (12.0-16.0); LYMPHOCYTES # 0.9 10^3/ul (0.8-2.9); LYMPHOCYTES % 14.5 % (15.0-51.0); MEAN CORPUSCULAR HEMOGLOBIN 34.7 pg (29.0-33.0); MEAN CORPUSCULAR HGB CONC 33.7 g/dl (32.0-37.0); MEAN CORPUSCULAR VOLUME 102.8 fl (82.0-101.0); MEAN PLATELET VOLUME 8.5 fl (7.4-10.4); MONOCYTE # 0.7 10^3/ul (0.3-0.9); MONOCYTES % 11.6 % (0.0-11.0); NEUTROPHIL # 4.7 10^3/ul (1.6-7.5); NEUTROPHILS % 73.7 % (39.0-77.0); PLATELET COUNT 159 10^3/UL (140-440); RED CELL DISTRIBUTION WIDTH 15.5 % (11.5-14.5); UNCORRECTED WBC 6.3 10^3/ul (4.8-10.8); WHITE BLOOD COUNT 6.3 10^3/ul (4.8-10.8)
[2016-07-19 07:17] LABS: CONDITION 1; LH ANALYZER COMMENTS 1
--- NOTE | 2016-07-19 08:21 | CONS ---
Date/Time of Note Date/Time of Note DATE: 07/19/16 TIME: 08:17 Assessment/Plan Assessment/Plan Chief Complaint/Hosp Course 1) diverticulitis pt has received 10 days of zosyn which should be sufficient no fever and normal WBC and no increase in neutrophils d/c zosyn 07/19 - abd pain is better today, off zosyn 2) c.dif present not sure this is a true infection but she has some abd pain and watery to mushy stools continue with flagyl for a 10 day course will check IgG level 07/19 - if n, v continues will change flagyl to po vanco 3) ESRD 4) HTN Problems: Consultation Date/Type/Reason Admit Date/Time Jul 08, 2016 at 16:36 Initial Consult Date 07/18/16 Type of Consultation: ID [id number] HR Interval Summary Free Text/Dictation pt had some N, V last night abd pain is better no stools today, 3 stools yesterda no SOB Exam/Review of Systems Vital Signs Vitals Vital Signs Date Time Temp Pulse Resp B/P Pulse Ox O2 Delivery O2 Flow Rate FiO2 07/19/16 08:10 99.6 71 18 146/72 98 Intake and Output 07/18/16 07/18/16 07/19/16 15:00 23:00 07:00 Intake Total 340 ml 780 ml Balance 340 ml 780 ml Exam Constitutional: alert, oriented Head: normocephalic Eyes: nl conjunctiva Respiratory: clear to auscultation Cardiovascular: regular rate and rhythm Gastrointestinal: non-tender, soft Results Result Diagram: 07/19/16 0540 07/19/16 0540 Results 24 hrs Laboratory Tests Test 07/19/16 05:40 Alanine Aminotransferase (ALT/SGPT) 20 Albumin 3.2 L Albumin/Globulin Ratio 1.06 Alkaline Phosphatase 64 Anion Gap 21 H Aspartate Amino Transf (AST/SGOT) 21 Basophils # 0.0 Basophils % 0.1 Blood Morphology Comment Blood Urea Nitrogen 42 #H Calcium Level 10.5 H Carbon Dioxide Level 17 L Chloride Level 107 Creatinine 8.61 H Direct Bilirubin 0.00 Eosinophils # 0.0 Eosinophils % 0.1 Globulin 3.00 Glucose Level 75 Hematocrit 29.8 L Hemoglobin 10.1 L Indirect Bilirubin 0.0 Lymphocytes # 0.9 Lymphocytes % 14.5 L Mean Corpuscular Hemoglobin 34.7 H Mean Corpuscular Hemoglobin Concent 33.7 Mean Corpuscular Volume 102.8 H Mean Platelet Volume 8.5 Monocytes # 0.7 Monocytes % 11.6 H Neutrophils # 4.7 Neutrophils % 73.7 Nucleated Red Blood Cells # 0.0 Nucleated Red Blood Cells % 0.0 Platelet Count 159 Potassium Level 4.0 Red Blood Count 2.90 L Red Cell Distribution Width 15.5 H Sodium Level 141 Total Bilirubin 0.0 L Total Protein 6.2 White Blood Count 6.3 Medications Medications Current Medications Acetaminophen (Tylenol Tab) 650 mg Q6H PRN PO PAIN LEVEL 1-3 OR FEVER Last administered on 07/13/16 05:49; Admin Dose 650 MG; Start 07/08/16 at 17:00 Docusate Sodium (Colace) 100 mg Q12H PRN PO CONSTIPATION; Start 07/08/16 at 17: 00 Pantoprazole (Protonix Iv) 40 mg DAILY@06 IV Last administered on 07/19/16 05: 38; Admin Dose 40 MG; Start 07/09/16 at 06:00 Carvedilol (Coreg) 25 mg BID PO Last administered on 07/18/16 21:04; Admin Dose 25 MG; Start 07/08/16 at 21:00 Duloxetine HCl (Cymbalta) 30 mg BID PO Last administered on 07/18/16 21:03; Admin Dose 30 MG; Start 07/08/16 at 21:00 Folic Acid (Folic Acid) 1 mg DAILY PO Last administered on 07/18/16 08:34; Admin Dose 1 MG; Start 07/09/16 at 09:00 Gabapentin (Neurontin) 300 mg QHS PO Last administered on 07/18/16 21:03; Admin Dose 300 MG; Start 07/08/16 at 21:00 Hydroxychloroquine Sulfate (Plaquenil) 300 mg DAILY PO Last administered on 08:34; Admin Dose 300 MG; Start 07/09/16 at 09:00 Multivit/Ca Carb/ B Cmplx/FA/Prenat ([place]od[place]-Sarah) 1 tab DAILY PO Last administered on 07/18/16 08:34; Admin Dose 1 TAB; Start 07/09/16 at 09:00 Prednisone (Prednisone) 5 mg DAILY PO Last administered on 07/18/16 08:34; Admin Dose 5 MG; Start 07/09/16 at 09:00 Atorvastatin Calcium (Lipitor) 10 mg DAILY@21 PO Last administered on 21:03; Admin Dose 10 MG; Start 07/08/16 at 21:00 Hydromorphone HCl (Dilaudid) 1 mg Q2 PRN IV SEVERE PAIN LEVEL 7-10 Last administered on 07/18/16 12:28; Admin Dose 1 MG; Start 07/08/16 at 20:00 Acetaminophen/ Hydrocodone Bitart ([place] (5/325)) 1 tab Q6H PRN PO PAIN LEVEL 4 -7 Last administered on 07/18/16 21:04; Admin Dose 1 TAB; Start 07/09/16 at 14: 00 Acetaminophen/ Hydrocodone Bitart ([place] (10/325)) 2 tab Q4H PRN PO PAIN Last administered on 07/18/16 23:27; Admin Dose 2 TAB; Start 07/09/16 at 20:30 Diphenhydramine HCl (Benadryl) 25 mg Q6H PRN PO ITCHING Last administered on 19:39; Admin Dose 25 MG; Start 07/09/16 at 20:30 Ondansetron HCl (Zofran Inj) 4 mg Q4H PRN IV NAUSEA AND/OR VOMITING Last administered on 07/18/16 12:32; Admin Dose 4 MG; Start 07/12/16 at 13:00 Hydrocortisone (Proctozone-Hc) 1 applic BID PRN [place] HEMORROID PAIN/ITCHING Last administered on 07/13/16 22:09; Admin Dose 1 APPLIC; Start 07/12/16 at 13:00 Hydrocortisone (Anusol-Hc Supp) 25 mg BID PRN [place] HEMORROID PAIN/ITCHING; Start 07/13/16 at 08:00 Clonidine (Catapres) 0.1 mg Q4H PRN PO SBP > 180 or DBP > 105 Last administered on 07/14/16 02:12; Admin Dose 0.1 MG; Start 07/13/16 at 12:00 Nifedipine (Procardia Xl) 30 mg DAILY PO Last administered on 07/18/16 08:34; Admin Dose 30 MG; Start 07/14/16 at 09:00 Ranitidine HCl (Zantac) 300 mg HS PO Last administered on 07/18/16 21:03; Admin Dose 300 MG; Start 07/14/16 at 23:00 Metronidazole (Flagyl) 500 mg Q8 PO Last administered on 07/19/16 05:38; Admin Dose 500 MG; Start 07/17/16 at 14:00 Lactobacillus Acidophilus/ Rhamnosus (Culturelle) 1 cap BID PO Last administered on 07/18/16 21:03; Admin Dose 1 CAP; Start 07/17/16 at 10:30 GARIMA RYDER MD Jul 19, 2016 08:20
--- NOTE | 2016-07-19 08:37 | PN ---
Date/Time of Note Date/Time of Note DATE: 07/19/16 TIME: 08:34 Assessment/Plan VTE Prophylaxis VTE Prophylaxis Intervention: other Lines/Catheters IV Catheter Type (from Nrsg): AV FISTULA Urinary Cath still in place: No Assessment/Plan Assessment/Plan 1. Diverticulitis resolving 2. C diff on rx, improving 3. ESRD, to have HD today 4. Mild nausea and vomiting, sec to GERD and ? flagyl 5. Observe 1 more day and then dc if ok with surg and ID Subjective 24 Hr Interval Summary Respiratory: No cough, No shortness of breath Cardiovascular: No chest pain, No lightheadedness Gastrointestinal: other (had 2-3 loose stools yesterday, none this am and had emesis x2 yesterday, less abd pain today ) Genitourinary: no complaints Exam/Review of Systems Vital Signs Vitals Vital Signs Date Time Temp Pulse Resp B/P Pulse Ox O2 Delivery O2 Flow Rate FiO2 07/19/16 08:10 99.6 71 18 146/72 98 Intake and Output 07/18/16 07/18/16 07/19/16 15:00 23:00 07:00 Intake Total 340 ml 780 ml Balance 340 ml 780 ml Exam Neck: No jvd Respiratory: clear to auscultation Cardiovascular: regular rate and rhythm Gastrointestinal: soft, tender (min in epig area), No distended, No hepatomegaly Results Result Diagram: 07/19/16 0540 07/19/16 0540 Results 24 hrs Laboratory Tests Test 07/19/16 05:40 Alanine Aminotransferase (ALT/SGPT) 20 Albumin 3.2 L Albumin/Globulin Ratio 1.06 Alkaline Phosphatase 64 Anion Gap 21 H Aspartate Amino Transf (AST/SGOT) 21 Basophils # 0.0 Basophils % 0.1 Blood Morphology Comment Blood Urea Nitrogen 42 #H Calcium Level 10.5 H Carbon Dioxide Level 17 L Chloride Level 107 Creatinine 8.61 H Direct Bilirubin 0.00 Eosinophils # 0.0 Eosinophils % 0.1 Globulin 3.00 Glucose Level 75 Hematocrit 29.8 L Hemoglobin 10.1 L Indirect Bilirubin 0.0 Lymphocytes # 0.9 Lymphocytes % 14.5 L Mean Corpuscular Hemoglobin 34.7 H Mean Corpuscular Hemoglobin Concent 33.7 Mean Corpuscular Volume 102.8 H Mean Platelet Volume 8.5 Monocytes # 0.7 Monocytes % 11.6 H Neutrophils # 4.7 Neutrophils % 73.7 Nucleated Red Blood Cells # 0.0 Nucleated Red Blood Cells % 0.0 Platelet Count 159 Potassium Level 4.0 Red Blood Count 2.90 L Red Cell Distribution Width 15.5 H Sodium Level 141 Total Bilirubin 0.0 L Total Protein 6.2 White Blood Count 6.3 Medications Medications Current Medications Acetaminophen (Tylenol Tab) 650 mg Q6H PRN PO PAIN LEVEL 1-3 OR FEVER Last administered on 07/13/16 05:49; Admin Dose 650 MG; Start 07/08/16 at 17:00 Docusate Sodium (Colace) 100 mg Q12H PRN PO CONSTIPATION; Start 07/08/16 at 17: 00 Pantoprazole (Protonix Iv) 40 mg DAILY@06 IV Last administered on 07/19/16 05: 38; Admin Dose 40 MG; Start 07/09/16 at 06:00 Carvedilol (Coreg) 25 mg BID PO Last administered on 07/18/16 21:04; Admin Dose 25 MG; Start 07/08/16 at 21:00 Duloxetine HCl (Cymbalta) 30 mg BID PO Last administered on 07/18/16 21:03; Admin Dose 30 MG; Start 07/08/16 at 21:00 Folic Acid (Folic Acid) 1 mg DAILY PO Last administered on 07/18/16 08:34; Admin Dose 1 MG; Start 07/09/16 at 09:00 Gabapentin (Neurontin) 300 mg QHS PO Last administered on 07/18/16 21:03; Admin Dose 300 MG; Start 07/08/16 at 21:00 Hydroxychloroquine Sulfate (Plaquenil) 300 mg DAILY PO Last administered on 08:34; Admin Dose 300 MG; Start 07/09/16 at 09:00 Multivit/Ca Carb/ B Cmplx/FA/Prenat (Teodora-Sarah) 1 tab DAILY PO Last administered on 07/18/16 08:34; Admin Dose 1 TAB; Start 07/09/16 at 09:00 Prednisone (Prednisone) 5 mg DAILY PO Last administered on 07/18/16 08:34; Admin Dose 5 MG; Start 07/09/16 at 09:00 Atorvastatin Calcium (Lipitor) 10 mg DAILY@21 PO Last administered on 21:03; Admin Dose 10 MG; Start 07/08/16 at 21:00 Hydromorphone HCl (Dilaudid) 1 mg Q2 PRN IV SEVERE PAIN LEVEL 7-10 Last administered on 07/18/16 12:28; Admin Dose 1 MG; Start 07/08/16 at 20:00 Acetaminophen/ Hydrocodone Bitart ([place] (5/325)) 1 tab Q6H PRN PO PAIN LEVEL 4 -7 Last administered on 07/18/16 21:04; Admin Dose 1 TAB; Start 07/09/16 at 14: 00 Acetaminophen/ Hydrocodone Bitart ([place] (10/325)) 2 tab Q4H PRN PO PAIN Last administered on 07/18/16 23:27; Admin Dose 2 TAB; Start 07/09/16 at 20:30 Diphenhydramine HCl (Benadryl) 25 mg Q6H PRN PO ITCHING Last administered on 19:39; Admin Dose 25 MG; Start 07/09/16 at 20:30 Ondansetron HCl (Zofran Inj) 4 mg Q4H PRN IV NAUSEA AND/OR VOMITING Last administered on 07/18/16 12:32; Admin Dose 4 MG; Start 07/12/16 at 13:00 Hydrocortisone (Proctozone-Hc) 1 applic BID PRN [place] HEMORROID PAIN/ITCHING Last administered on 07/13/16 22:09; Admin Dose 1 APPLIC; Start 07/12/16 at 13:00 Hydrocortisone (Anusol-Hc Supp) 25 mg BID PRN [place] HEMORROID PAIN/ITCHING; Start 07/13/16 at 08:00 Clonidine (Catapres) 0.1 mg Q4H PRN PO SBP > 180 or DBP > 105 Last administered on 07/14/16 02:12; Admin Dose 0.1 MG; Start 07/13/16 at 12:00 Nifedipine (Procardia Xl) 30 mg DAILY PO Last administered on 07/18/16 08:34; Admin Dose 30 MG; Start 07/14/16 at 09:00 Ranitidine HCl (Zantac) 300 mg HS PO Last administered on 07/18/16 21:03; Admin Dose 300 MG; Start 07/14/16 at 23:00 Metronidazole (Flagyl) 500 mg Q8 PO Last administered on 07/19/16 05:38; Admin Dose 500 MG; Start 07/17/16 at 14:00 Lactobacillus Acidophilus/ Rhamnosus (Culturelle) 1 cap BID PO Last administered on 07/18/16 21:03; Admin Dose 1 CAP; Start 07/17/16 at 10:30 MECHELLE JOSÉ MD Jul 19, 2016 08:37
[2016-07-19] MEDS: FOLIC ACID 1 MG TAB PO SCH (08:58)
[2016-07-19] MEDS: LACTOBACILLUS RHAMNOSUS CAP PO SCH ×2 (08:58→21:19)
[2016-07-19] MEDS: predniSONE 5 MG TAB PO SCH (08:58)
[2016-07-19] MEDS: CALCIUM ACETATE 667 MG CAP PO SCH ×3 (08:58→17:24)
[2016-07-19] MEDS: HYDROXYCHLOROQUINE 200 MG TAB PO SCH (08:58)
[2016-07-19] MEDS: MULTIVIT/CA CARB/B CMPLX/FA TAB PO SCH (08:58)
[2016-07-19] MEDS: DULOXETINE 30 MG CAP DR PO SCH ×2 (08:58→21:19)
[2016-07-19] MEDS: NIFEdipine (XL) 30 MG TAB PO SCH (08:59)
--- NOTE | 2016-07-19 13:15 | PN ---
Date/Time of Note Date/Time of Note DATE: 07/19/16 TIME: 13:14 Assessment/Plan Lines/Catheters IV Catheter Type (from Nrs): AV Fistula Styles in Place (from Nrs): No Assessment/Plan Chief Complaint/Hosp Course 1. Abdominal pain with CT findings of probable infection. CT angio without ischemia. Appreciate Vascular input. Repeat CT noted with contrast passing to rectum without leak. +CDiff. Improving -antibiotics -supportive care. -anticoagulation -diet as tolerated -dc planning ok from surgical standpoint 2. Anemia without evidence of acute blood loss. Continue close observation. 3. Lupus. Continue medical optimization. 4. Fibromyalgia & Neuropathy. Continue medical management. 5. ESRD on HD 6. Hypoalbuminemia is multifactorial; however, will benefit from eventual nutritional optimization. Thank you, Problems: Subjective 24 Hr Interval Summary +CDiff. No fever. No chills. Feels better overall. No vomiting but minimal nausea. No cp/sob. No cough. No harrell/dizzy/visual or neuro changes. No dysuria. Flatus and bms. Abdominal pain improved. Exam/Review of Systems Vital Signs Vitals Vital Signs Date Time Temp Pulse Resp B/P Pulse Ox O2 Delivery O2 Flow Rate FiO2 07/19/16 13:00 76 07/19/16 13:00 18 07/19/16 08:10 99.6 146/72 98 Intake and Output 07/18/16 07/18/16 07/19/16 15:00 23:00 07:00 Intake Total 340 ml 780 ml Balance 340 ml 780 ml Exam Free Text/Dictation GENERAL: No acute distress. Overweight. HEENT: Pupils equal, reactive. No scleral icterus. Mucous membranes somewhat dry. NECK: Supple, no JVD. No crepitus. Trachea midline. PULMONARY: Normal respiratory effort. No wheezing. HEART: S1, S2 present. ABDOMEN: Soft, NT, ND, no rebound, guarding, nor rigidity. EXTREMITIES: No edema. VASCULAR: Cap refill less than 2 seconds. NEUROLOGIC: Alert, oriented, moves all 4 extremities grossly. SKIN: No jaundice Results Result Diagram: 07/19/16 0540 07/19/16 0540 BALJEET SOTO MD Jul 19, 2016 13:15
[2016-07-19] MEDS: HYDROmorphONE 1 MG/ML SYG IV PRN ×2 (14:00→21:25)
[2016-07-19] MEDS: ONDANSETRON 4 MG INJ IV PRN (14:06)
[2016-07-19] MEDS: RANITIDINE 150 MG TAB PO SCH (21:19)
[2016-07-19] MEDS: ATORVASTATIN 10 MG TAB PO SCH (21:19)
[2016-07-19] MEDS: GABAPENTIN 300 MG CAP PO SCH (21:19)
[2016-07-20] MEDS: HYDROCODONE/APAP (10/325) TAB PO PRN ×2 (01:09→15:56)
[2016-07-20] MEDS: HYDROmorphONE 1 MG/ML SYG IV PRN (05:37)
[2016-07-20] MEDS: PANTOPRAZOLE (EC) 40 MG TAB PO SCH (05:37)
[2016-07-20] MEDS: metroNIDAZOLE 500 MG TAB PO SCH ×3 (05:37→21:53)
[2016-07-20 06:04] LABS: BASOPHILS % 0.1 % (0.0-2.0); HEMATOCRIT 30.4 % (37.0-47.0); HEMOGLOBIN 10.4 g/dl (12.0-16.0); LYMPHOCYTES # 1.4 10^3/ul (0.8-2.9); LYMPHOCYTES % 18.3 % (15.0-51.0); MEAN CORPUSCULAR HEMOGLOBIN 34.6 pg (29.0-33.0); MEAN CORPUSCULAR HGB CONC 34.1 g/dl (32.0-37.0); MEAN CORPUSCULAR VOLUME 101.4 fl (82.0-101.0); MEAN PLATELET VOLUME 8.9 fl (7.4-10.4); MONOCYTE # 0.7 10^3/ul (0.3-0.9); MONOCYTES % 9.2 % (0.0-11.0); NEUTROPHIL # 5.7 10^3/ul (1.6-7.5); NEUTROPHILS % 72.4 % (39.0-77.0); PLATELET COUNT 158 10^3/UL (140-440); RED CELL DISTRIBUTION WIDTH 15.3 % (11.5-14.5); UNCORRECTED WBC 7.9 10^3/ul (4.8-10.8); WHITE BLOOD COUNT 7.9 10^3/ul (4.8-10.8)
[2016-07-20 06:18] LABS: CONDITION 1; LH ANALYZER COMMENTS 1; POTASSIUM 3.7 mmol/L (3.5-5.1)
[2016-07-20 06:21] LABS: CREATININE 5.74 mg/dl (0.44-1.00)
[2016-07-20 06:22] LABS: CALCIUM 9.6 mg/dl (8.4-10.2); PHOSPHORUS 3.6 mg/dl (2.5-4.9)
[2016-07-20 07:40] VITALS: BP 135/69; RESP 18
--- NOTE | 2016-07-20 08:26 | PN ---
Date/Time of Note Date/Time of Note DATE: 07/20/16 TIME: 08:24 Assessment/Plan VTE Prophylaxis VTE Prophylaxis Intervention: other Lines/Catheters IV Catheter Type (from Nrsg): AV FISTULA Urinary Cath still in place: No Assessment/Plan Assessment/Plan 1. C diff colitis improving 2. Nausea and vomiting resolving 3. Abd pain continues, will dec iv pain meds and observe additional 24 hrs 4. CKD, will HD tomm. 5. Start Heparin SQ for DVT prophylaxis Subjective 24 Hr Interval Summary Respiratory: No shortness of breath Cardiovascular: No chest pain Gastrointestinal: other (1-2 loost stools last 12 hours, no emesis after yest midday, still had mod abd pain requiring iv pain meds) Genitourinary: no complaints Exam/Review of Systems Vital Signs Vitals Vital Signs Date Time Temp Pulse Resp B/P Pulse Ox O2 Delivery O2 Flow Rate FiO2 07/20/16 07:40 98.8 73 18 135/69 95 Intake and Output 07/19/16 07/19/16 07/20/16 15:00 23:00 07:00 Intake Total 500 ml 600 ml 800 ml Output Total 2500 ml Balance -2000 ml 600 ml 800 ml Exam Neck: No jvd Respiratory: clear to auscultation Cardiovascular: regular rate and rhythm Gastrointestinal: soft, tender (1+ lower left llq) Extremities: No edema (and no calf tend) Results Result Diagram: 07/20/16 0505 07/20/16 0505 Results 24 hrs Laboratory Tests Test 07/20/16 05:05 Anion Gap 15 Basophils # 0.0 Basophils % 0.1 Blood Morphology Comment Blood Urea Nitrogen 34 H Calcium Level 9.6 Carbon Dioxide Level 29 # Chloride Level 99 Creatinine 5.74 #H Eosinophils # 0.0 Eosinophils % 0.0 Glucose Level 79 Hematocrit 30.4 L Hemoglobin 10.4 L Lymphocytes # 1.4 Lymphocytes % 18.3 Mean Corpuscular Hemoglobin 34.6 H Mean Corpuscular Hemoglobin Concent 34.1 Mean Corpuscular Volume 101.4 H Mean Platelet Volume 8.9 Monocytes # 0.7 Monocytes % 9.2 Neutrophils # 5.7 Neutrophils % 72.4 Nucleated Red Blood Cells # 0.0 Nucleated Red Blood Cells % 0.0 Phosphorus Level 3.6 Platelet Count 158 Potassium Level 3.7 Red Blood Count 3.00 L Red Cell Distribution Width 15.3 H Sodium Level 139 White Blood Count 7.9 # Medications Medications Current Medications Acetaminophen (Tylenol Tab) 650 mg Q6H PRN PO PAIN LEVEL 1-3 OR FEVER Last administered on 07/13/16 05:49; Admin Dose 650 MG; Start 07/08/16 at 17:00 Docusate Sodium (Colace) 100 mg Q12H PRN PO CONSTIPATION; Start 07/08/16 at 17: 00 Carvedilol (Coreg) 25 mg BID PO Last administered on 07/19/16 21:20; Admin Dose 25 MG; Start 07/08/16 at 21:00 Duloxetine HCl (Cymbalta) 30 mg BID PO Last administered on 07/19/16 21:19; Admin Dose 30 MG; Start 07/08/16 at 21:00 Folic Acid (Folic Acid) 1 mg DAILY PO Last administered on 07/19/16 08:58; Admin Dose 1 MG; Start 07/09/16 at 09:00 Gabapentin (Neurontin) 300 mg QHS PO Last administered on 07/19/16 21:19; Admin Dose 300 MG; Start 07/08/16 at 21:00 Hydroxychloroquine Sulfate (Plaquenil) 300 mg DAILY PO Last administered on 08:58; Admin Dose 300 MG; Start 07/09/16 at 09:00 Multivit/Ca Carb/ B Cmplx/FA/Prenat (Teodora-Sarah) 1 tab DAILY PO Last administered on 07/19/16 08:58; Admin Dose 1 TAB; Start 07/09/16 at 09:00 Prednisone (Prednisone) 5 mg DAILY PO Last administered on 07/19/16 08:58; Admin Dose 5 MG; Start 07/09/16 at 09:00 Atorvastatin Calcium (Lipitor) 10 mg DAILY@21 PO Last administered on 21:19; Admin Dose 10 MG; Start 07/08/16 at 21:00 Hydromorphone HCl (Dilaudid) 1 mg Q2 PRN IV SEVERE PAIN LEVEL 7-10 Last administered on 07/20/16 05:37; Admin Dose 1 MG; Start 07/08/16 at 20:00 Acetaminophen/ Hydrocodone Bitart ([place] (5/325)) 1 tab Q6H PRN PO PAIN LEVEL 4 -7 Last administered on 07/18/16 21:04; Admin Dose 1 TAB; Start 07/09/16 at 14: 00 Acetaminophen/ Hydrocodone Bitart ([place] (10/325)) 2 tab Q4H PRN PO PAIN Last administered on 07/20/16 01:09; Admin Dose 2 TAB; Start 07/09/16 at 20:30 Diphenhydramine HCl (Benadryl) 25 mg Q6H PRN PO ITCHING Last administered on 19:39; Admin Dose 25 MG; Start 07/09/16 at 20:30 Ondansetron HCl (Zofran Inj) 4 mg Q4H PRN IV NAUSEA AND/OR VOMITING Last administered on 07/19/16 14:06; Admin Dose 4 MG; Start 07/12/16 at 13:00 Hydrocortisone (Proctozone-Hc) 1 applic BID PRN [place] HEMORROID PAIN/ITCHING Last administered on 07/13/16 22:09; Admin Dose 1 APPLIC; Start 07/12/16 at 13:00 Hydrocortisone (Anusol-Hc Supp) 25 mg BID PRN [place] HEMORROID PAIN/ITCHING; Start 07/13/16 at 08:00 Clonidine (Catapres) 0.1 mg Q4H PRN PO SBP > 180 or DBP > 105 Last administered on 07/14/16 02:12; Admin Dose 0.1 MG; Start 07/13/16 at 12:00 Nifedipine (Procardia Xl) 30 mg DAILY PO Last administered on 07/18/16 08:34; Admin Dose 30 MG; Start 07/14/16 at 09:00 Ranitidine HCl (Zantac) 300 mg HS PO Last administered on 07/19/16 21:19; Admin Dose 300 MG; Start 07/14/16 at 23:00 Metronidazole (Flagyl) 500 mg Q8 PO Last administered on 07/20/16 05:37; Admin Dose 500 MG; Start 07/17/16 at 14:00 Lactobacillus Acidophilus/ Rhamnosus (Culturelle) 1 cap BID PO Last administered on 07/19/16 21:19; Admin Dose 1 CAP; Start 07/17/16 at 10:30 Pantoprazole (Protonix Tab) 40 mg DAILY@06 PO Last administered on 07/20/16 05 :37; Admin Dose 40 MG; Start 07/20/16 at 06:00 MECHELLE JOSÉ MD Jul 20, 2016 08:26
[2016-07-20] MEDS: LACTOBACILLUS RHAMNOSUS CAP PO SCH ×2 (08:48→20:54)
[2016-07-20] MEDS: MULTIVIT/CA CARB/B CMPLX/FA TAB PO SCH (08:48)
[2016-07-20] MEDS: CALCIUM ACETATE 667 MG CAP PO SCH ×3 (08:48→17:48)
[2016-07-20] MEDS: NIFEdipine (XL) 30 MG TAB PO SCH (08:48)
[2016-07-20] MEDS: predniSONE 5 MG TAB PO SCH (08:49)
[2016-07-20] MEDS: DULOXETINE 30 MG CAP DR PO SCH ×2 (08:49→20:54)
[2016-07-20] MEDS: FOLIC ACID 1 MG TAB PO SCH (08:49)
[2016-07-20] MEDS: HYDROXYCHLOROQUINE 200 MG TAB PO SCH (08:49)
[2016-07-20] MEDS: HEPARIN 5,000 UNIT/0.5 ML SYG SC SCH ×2 (12:08→21:02)
[2016-07-20] MEDS ORDERED: HYDROmorphONE 1 MG/ML SYG IV PRN (14:00)
[2016-07-20 19:30] VITALS: BP 109/61; PULSE 76
[2016-07-20] MEDS: ATORVASTATIN 10 MG TAB PO SCH (20:54)
[2016-07-20] MEDS: GABAPENTIN 300 MG CAP PO SCH (20:54)
[2016-07-20] MEDS ORDERED: RANITIDINE 150 MG TAB PO SCH (21:00)
--- NOTE | 2016-07-20 21:45 | PN ---
Date/Time of Note Date/Time of Note DATE: 07/20/16 TIME: 21:44 Assessment/Plan Lines/Catheters IV Catheter Type (from [facility]): AV FISTULA Styles in Place (from [facility]): No Assessment/Plan Chief Complaint/Hosp Course 1. Abdominal pain with CT findings of probable infection. CT angio without ischemia. Appreciate Vascular input. Repeat CT noted with contrast passing to rectum without leak. +CDiff. Improved -antibiotics -supportive care. -anticoagulation -diet as tolerated -dc planning ok from surgical standpoint 2. Anemia without evidence of acute blood loss. Continue close observation. 3. Lupus. Continue medical optimization. 4. Fibromyalgia & Neuropathy. Continue medical management. 5. ESRD on HD 6. Hypoalbuminemia is multifactorial; however, will benefit from eventual nutritional optimization. Thank you, Problems: Subjective 24 Hr Interval Summary Feels much better. No abdominal pain. No fever. No chills. No n/v. No cp/ sob. No cough. No harrell/dizzy/visual or neuro changes. No dysuria. Flatus and bms. Exam/Review of Systems Vital Signs Vitals Vital Signs Date Time Temp Pulse Resp B/P Pulse Ox O2 Delivery O2 Flow Rate FiO2 07/20/16 19:30 98.7 76 109/61 94 Room Air 07/20/16 07:40 18 Intake and Output 07/19/16 07/19/16 07/20/16 15:00 23:00 07:00 Intake Total 500 ml 600 ml 800 ml Output Total 2500 ml Balance -2000 ml 600 ml 800 ml Exam Free Text/Dictation GENERAL: No acute distress. Overweight. HEENT: Pupils equal, reactive. No scleral icterus. Mucous membranes somewhat dry. NECK: Supple, no JVD. No crepitus. Trachea midline. PULMONARY: Normal respiratory effort. No wheezing. HEART: S1, S2 present. ABDOMEN: Soft, NT, ND, no rebound, guarding, nor rigidity. EXTREMITIES: No edema. VASCULAR: Cap refill less than 2 seconds. NEUROLOGIC: Alert, oriented, moves all 4 extremities grossly. SKIN: No jaundice Results Result Diagram: 07/20/16 0505 07/20/16 0505 BALJEET SOTO MD Jul 20, 2016 21:45
[2016-07-20] MEDS: ONDANSETRON 4 MG INJ IV PRN (23:18)
[2016-07-21] VITALS (9 sets, daily range): BP systolic 105–137; BP diastolic 56–72; PULSE 81–87; RESP 18
[2016-07-21] MEDS: HYDROCODONE/APAP (10/325) TAB PO PRN ×2 (00:53→14:52)
[2016-07-21] MEDS: metroNIDAZOLE 500 MG TAB PO SCH (05:46)
[2016-07-21] MEDS: PANTOPRAZOLE (EC) 40 MG TAB PO SCH (05:46)
[2016-07-21 06:25] LABS: POTASSIUM 3.8 mmol/L (3.5-5.1)
[2016-07-21 06:28] LABS: CREATININE 7.48 mg/dl (0.44-1.00)
[2016-07-21 06:29] LABS: CALCIUM 9.7 mg/dl (8.4-10.2)
--- NOTE | 2016-07-21 07:47 | CONS ---
Date/Time of Note Date/Time of Note DATE: 07/21/16 TIME: 07:44 Assessment/Plan Assessment/Plan Chief Complaint/Hosp Course 1) diverticulitis pt has received 10 days of zosyn which should be sufficient no fever and normal WBC and no increase in neutrophils d/c zosyn 07/19 - abd pain is better today, off zosyn 07/21 - pain continues to improve 2) c.dif present not sure this is a true infection but she has some abd pain and watery to mushy stools continue with flagyl for a 10 day course will check IgG level 07/19 - if n, v continues will change flagyl to po vanco 07/21 - pt had vomiting again last night d/c flagyl and start po vanco and continue thru 07/26 IgG level was ok 3) ESRD 4) HTN Problems: Consultation Date/Type/Reason Admit Date/Time Jul 08, 2016 at 16:36 Initial Consult Date 07/18/16 Type of Consultation: ID [id number] HR Interval Summary Free Text/Dictation no SOB she had some vomiting last night stools are mushy now Exam/Review of Systems Vital Signs Vitals Vital Signs Date Time Temp Pulse Resp B/P Pulse Ox O2 Delivery O2 Flow Rate FiO2 07/20/16 19:30 98.7 76 109/61 94 Room Air 07/20/16 07:40 18 Intake and Output 07/20/16 07/20/16 07/21/16 15:00 23:00 07:00 Intake Total 980 ml 400 ml Balance 980 ml 400 ml Exam Constitutional: alert, oriented Eyes: nl conjunctiva ENMT: mucosa pink and moist Respiratory: clear to auscultation Cardiovascular: regular rate and rhythm Gastrointestinal: other (minimal tenderness to L abd, less than before), soft Results Result Diagram: 07/20/16 0505 07/21/16 0600 Results 24 hrs Laboratory Tests Test 07/21/16 06:00 Anion Gap 20 H Blood Urea Nitrogen 47 #H Calcium Level 9.7 Carbon Dioxide Level 25 Chloride Level 96 L Creatinine 7.48 H Glucose Level 86 Potassium Level 3.8 Sodium Level 137 Medications Medications Current Medications Acetaminophen (Tylenol Tab) 650 mg Q6H PRN PO PAIN LEVEL 1-3 OR FEVER Last administered on 07/13/16t 05:49; Admin Dose 650 MG; Start 07/08/16 at 17:00 Docusate Sodium (Colace) 100 mg Q12H PRN PO CONSTIPATION; Start 07/08/16 at 17: 00 Carvedilol (Coreg) 25 mg BID PO Last administered on 07/20/16 08:48; Admin Dose 25 MG; Start 07/08/16 at 21:00 Duloxetine HCl (Cymbalta) 30 mg BID PO Last administered on 07/20/16 20:54; Admin Dose 30 MG; Start 07/08/16 at 21:00 Folic Acid (Folic Acid) 1 mg DAILY PO Last administered on 07/20/16 08:49; Admin Dose 1 MG; Start 07/09/16 at 09:00 Gabapentin (Neurontin) 300 mg QHS PO Last administered on 07/20/16 20:54; Admin Dose 300 MG; Start 07/08/16 at 21:00 Hydroxychloroquine Sulfate (Plaquenil) 300 mg DAILY PO Last administered on 08:49; Admin Dose 300 MG; Start 07/09/16 at 09:00 Multivit/Ca Carb/ B Cmplx/FA/Prenat (Teodora-Sarah) 1 tab DAILY PO Last administered on 07/20/16 08:48; Admin Dose 1 TAB; Start 07/09/16 at 09:00 Prednisone (Prednisone) 5 mg DAILY PO Last administered on 07/20/16 08:49; Admin Dose 5 MG; Start 07/09/16 at 09:00 Atorvastatin Calcium (Lipitor) 10 mg DAILY@21 PO Last administered on 20:54; Admin Dose 10 MG; Start 07/08/16 at 21:00 Acetaminophen/ Hydrocodone Bitart ([place] (5/325)) 1 tab Q6H PRN PO PAIN LEVEL 4 -7 Last administered on 07/18/16 21:04; Admin Dose 1 TAB; Start 07/09/16 at 14: 00 Acetaminophen/ Hydrocodone Bitart ([place] (10/325)) 2 tab Q4H PRN PO PAIN Last administered on 07/21/16 00:53; Admin Dose 2 TAB; Start 07/09/16 at 20:30 Diphenhydramine HCl (Benadryl) 25 mg Q6H PRN PO ITCHING Last administered on 19:39; Admin Dose 25 MG; Start 07/09/16 at 20:30 Ondansetron HCl (Zofran Inj) 4 mg Q4H PRN IV NAUSEA AND/OR VOMITING Last administered on 07/20/16 23:18; Admin Dose 4 MG; Start 07/12/16 at 13:00 Hydrocortisone (Proctozone-Hc) 1 applic BID PRN IN HEMORROID PAIN/ITCHING Last administered on 07/13/16 22:09; Admin Dose 1 APPLIC; Start 07/12/16 at 13:00 Hydrocortisone (Anusol-Hc Supp) 25 mg BID PRN IN HEMORROID PAIN/ITCHING; Start 07/13/16 at 08:00 Clonidine (Catapres) 0.1 mg Q4H PRN PO SBP > 180 or DBP > 105 Last administered on 07/14/16 02:12; Admin Dose 0.1 MG; Start 07/13/16 at 12:00 Nifedipine (Procardia Xl) 30 mg DAILY PO Last administered on 07/20/16 08:48; Admin Dose 30 MG; Start 07/14/16 at 09:00 Metronidazole (Flagyl) 500 mg Q8 PO Last administered on 07/21/16 05:46; Admin Dose 500 MG; Start 07/17/16 at 14:00 Lactobacillus Acidophilus/ Rhamnosus (Culturelle) 1 cap BID PO Last administered on 07/20/16 20:54; Admin Dose 1 CAP; Start 07/17/16 at 10:30 Pantoprazole (Protonix Tab) 40 mg DAILY@06 PO Last administered on 07/21/16 05 :46; Admin Dose 40 MG; Start 07/20/16 at 06:00 Hydromorphone HCl (Dilaudid) 1 mg Q8H PRN IV SEVERE PAIN LEVEL 7-10; Start at 14:00 Ranitidine HCl (Zantac) 150 mg HS PO Last administered on 07/20/16 20:55; Admin Dose 150 MG; Start 07/20/16 at 21:00 Heparin Sodium (Porcine) (Heparin (5000 Units/0.5 ml)) 5,000 unit BID SC Last administered on 07/20/16 21:02; Admin Dose 5,000 UNIT; Start 07/20/16 at 09:00 GARIMA RYDER MD Jul 21, 2016 07:47
--- NOTE | 2016-07-21 08:05 | PN ---
Date/Time of Note Date/Time of Note DATE: 07/21/16 TIME: 08:03 Assessment/Plan VTE Prophylaxis VTE Prophylaxis Intervention: other Lines/Catheters IV Catheter Type (from Nrs): AV FISTULA Urinary Cath still in place: No Assessment/Plan Assessment/Plan 1. Diverticulitis resolved. 2. C diff colitis improving, rev with id- re abx 3. CKD, to be dialyzed today 4. Will dc Subjective 24 Hr Interval Summary Respiratory: No cough, No shortness of breath Cardiovascular: No chest pain Gastrointestinal: nausea (is still present but mild, emesis x 1 last night, 1 BM sl soft and much less abd pain) Genitourinary: No no complaints Exam/Review of Systems Vital Signs Vitals Vital Signs Date Time Temp Pulse Resp B/P Pulse Ox O2 Delivery O2 Flow Rate FiO2 07/21/16 07:56 98.4 87 18 109/66 95 07/20/16 19:30 Room Air Intake and Output 07/20/16 07/20/16 07/21/16 15:00 23:00 07:00 Intake Total 980 ml 400 ml Balance 980 ml 400 ml Exam Neck: No jvd Respiratory: clear to auscultation Cardiovascular: regular rate and rhythm Gastrointestinal: No distended, No soft, No tender Extremities: No edema Results Result Diagram: 07/20/16 0505 07/21/16 0600 Results 24 hrs Laboratory Tests Test 07/21/16 06:00 Anion Gap 20 H Blood Urea Nitrogen 47 #H Calcium Level 9.7 Carbon Dioxide Level 25 Chloride Level 96 L Creatinine 7.48 H Glucose Level 86 Potassium Level 3.8 Sodium Level 137 Medications Medications Current Medications Acetaminophen (Tylenol Tab) 650 mg Q6H PRN PO PAIN LEVEL 1-3 OR FEVER Last administered on 07/13/16 05:49; Admin Dose 650 MG; Start 07/08/16 at 17:00 Docusate Sodium (Colace) 100 mg Q12H PRN PO CONSTIPATION; Start 07/08/16 at 17: 00 Carvedilol (Coreg) 25 mg BID PO Last administered on 07/20/16 08:48; Admin Dose 25 MG; Start 07/08/16 at 21:00 Duloxetine HCl (Cymbalta) 30 mg BID PO Last administered on 07/20/16 20:54; Admin Dose 30 MG; Start 07/08/16 at 21:00 Folic Acid (Folic Acid) 1 mg DAILY PO Last administered on 07/20/16 08:49; Admin Dose 1 MG; Start 07/09/16 at 09:00 Gabapentin (Neurontin) 300 mg QHS PO Last administered on 07/20/16 20:54; Admin Dose 300 MG; Start 07/08/16 at 21:00 Hydroxychloroquine Sulfate (Plaquenil) 300 mg DAILY PO Last administered on 08:49; Admin Dose 300 MG; Start 07/09/16 at 09:00 Multivit/Ca Carb/ B Cmplx/FA/Prenat (Teodora-Sarah) 1 tab DAILY PO Last administered on 07/20/16 08:48; Admin Dose 1 TAB; Start 07/09/16 at 09:00 Prednisone (Prednisone) 5 mg DAILY PO Last administered on 07/20/16 08:49; Admin Dose 5 MG; Start 07/09/16 at 09:00 Atorvastatin Calcium (Lipitor) 10 mg DAILY@21 PO Last administered on 20:54; Admin Dose 10 MG; Start 07/08/16 at 21:00 Acetaminophen/ Hydrocodone Bitart ([place] (5/325)) 1 tab Q6H PRN PO PAIN LEVEL 4 -7 Last administered on 07/18/16 21:04; Admin Dose 1 TAB; Start 07/09/16 at 14: 00 Acetaminophen/ Hydrocodone Bitart ([place] (10/325)) 2 tab Q4H PRN PO PAIN Last administered on 07/21/16 00:53; Admin Dose 2 TAB; Start 07/09/16 at 20:30 Diphenhydramine HCl (Benadryl) 25 mg Q6H PRN PO ITCHING Last administered on 19:39; Admin Dose 25 MG; Start 07/09/16 at 20:30 Ondansetron HCl (Zofran Inj) 4 mg Q4H PRN IV NAUSEA AND/OR VOMITING Last administered on 07/20/16 23:18; Admin Dose 4 MG; Start 07/12/16 at 13:00 Hydrocortisone (Proctozone-Hc) 1 applic BID PRN [place] HEMORROID PAIN/ITCHING Last administered on 07/13/16 22:09; Admin Dose 1 APPLIC; Start 07/12/16 at 13:00 Hydrocortisone (Anusol-Hc Supp) 25 mg BID PRN [place] HEMORROID PAIN/ITCHING; Start 07/13/16 at 08:00 Clonidine (Catapres) 0.1 mg Q4H PRN PO SBP > 180 or DBP > 105 Last administered on 07/14/16 02:12; Admin Dose 0.1 MG; Start 07/13/16 at 12:00 Nifedipine (Procardia Xl) 30 mg DAILY PO Last administered on 07/20/16 08:48; Admin Dose 30 MG; Start 07/14/16 at 09:00 Lactobacillus Acidophilus/ Rhamnosus (Culturelle) 1 cap BID PO Last administered on 07/20/16 20:54; Admin Dose 1 CAP; Start 07/17/16 at 10:30 Pantoprazole (Protonix Tab) 40 mg DAILY@06 PO Last administered on 07/21/16 05 :46; Admin Dose 40 MG; Start 07/20/16 at 06:00 Hydromorphone HCl (Dilaudid) 1 mg Q8H PRN IV SEVERE PAIN LEVEL 7-10; Start at 14:00 Ranitidine HCl (Zantac) 150 mg HS PO Last administered on 07/20/16 20:55; Admin Dose 150 MG; Start 07/20/16 at 21:00 Heparin Sodium (Porcine) (Heparin (5000 Units/0.5 ml)) 5,000 unit BID SC Last administered on 07/20/16 21:02; Admin Dose 5,000 UNIT; Start 07/20/16 at 09:00 Vancomycin HCl (Vancomycin Oral Syringe) 125 mg Q6 PO ; Start 07/21/16 at 08:30 MECHELLE JOSÉ MD Jul 21, 2016 08:05
[2016-07-21] MEDS ORDERED: Vancomycin Oral Syringe PO (08:07)
[2016-07-21 09:00] LABS: BASOPHILS % 0.1 % (0.0-2.0); HEMATOCRIT 28.7 % (37.0-47.0); HEMOGLOBIN 9.7 g/dl (12.0-16.0); LYMPHOCYTES # 2.1 10^3/ul (0.8-2.9); LYMPHOCYTES % 24.9 % (15.0-51.0); MEAN CORPUSCULAR HEMOGLOBIN 34.7 pg (29.0-33.0); MEAN CORPUSCULAR HGB CONC 33.9 g/dl (32.0-37.0); MEAN CORPUSCULAR VOLUME 102.5 fl (82.0-101.0); MEAN PLATELET VOLUME 9.1 fl (7.4-10.4); MONOCYTES % 12.4 % (0.0-11.0); NEUTROPHIL # 5.2 10^3/ul (1.6-7.5); NEUTROPHILS % 62.6 % (39.0-77.0); PLATELET COUNT 153 10^3/UL (140-440); UNCORRECTED WBC 8.3 10^3/ul (4.8-10.8); WHITE BLOOD COUNT 8.3 10^3/ul (4.8-10.8)
[2016-07-21] MEDS: HEPARIN 5,000 UNIT/0.5 ML SYG SC SCH (09:00)
[2016-07-21] MEDS: NIFEdipine (XL) 30 MG TAB PO SCH (09:00)
[2016-07-21] MEDS: LACTOBACILLUS RHAMNOSUS CAP PO SCH (09:01)
[2016-07-21] MEDS: predniSONE 5 MG TAB PO SCH (09:02)
[2016-07-21] MEDS: FOLIC ACID 1 MG TAB PO SCH (09:02)
[2016-07-21] MEDS: CALCIUM ACETATE 667 MG CAP PO SCH ×2 (09:02→14:52)
[2016-07-21] MEDS: HYDROXYCHLOROQUINE 200 MG TAB PO SCH (09:03)
[2016-07-21] MEDS: DULOXETINE 30 MG CAP DR PO SCH (09:03)
[2016-07-21] MEDS: MULTIVIT/CA CARB/B CMPLX/FA TAB PO SCH (09:03)
[2016-07-21 09:05] LABS: CONDITION 1; LH ANALYZER COMMENTS 1
[2016-07-21] MEDS: VANCOMYCIN HCL 250 MG/5ML POSYG PO SCH ×2 (12:00→14:51)
== END 2016-07-21 16:44 | disposition home or self-care (01) | DRG 391 ==
LOC: E/R 11:34 → MS2 16:36
PROVIDERS: ADMIT Internal Medicine; ATTEND Internal Medicine
PROC: 5A1D60Z (ICD-10-PCS; principal; 2016-07-09)
DX: K57.92 Diverticulitis of intestine, part unspecified, without perforation or abscess without bleeding (principal); N18.6 End stage renal disease; I12.0 Hypertensive chronic kidney disease with stage 5 chronic kidney disease or end stage renal disease; M32.14 Glomerular disease in systemic lupus erythematosus; D69.6 Thrombocytopenia, unspecified; A04.7 Enterocolitis due to Clostridium difficile; Z99.2 Dependence on renal dialysis; F32.9 Major depressive disorder, single episode, unspecified; E78.5 Hyperlipidemia, unspecified; K57.90 Diverticulosis of intestine, part unspecified, without perforation or abscess without bleeding; D12.6 Benign neoplasm of colon, unspecified; K29.60 Other gastritis without bleeding; K31.7 Polyp of stomach and duodenum; G62.9 Polyneuropathy, unspecified; M79.7 Fibromyalgia; M81.0 Age-related osteoporosis without current pathological fracture; R73.03 Prediabetes; D64.9 Anemia, unspecified; E88.09 Other disorders of plasma-protein metabolism, not elsewhere classified; K64.9 Unspecified hemorrhoids; Z87.891 Personal history of nicotine dependence; K21.9 Gastro-esophageal reflux disease without esophagitis
CPT/HCPCS: 36415; 71010; 74177; 75635; 80048; 80053; 81001; 81003; 82378; 82784; 83036; 83605; 83735; 84100; 85025; 85610; 85651; 85730; 87040; 87075; 87086; 90935; 93005; 96372; 96374; 96375; 96376; 97162; C9113; J1170; J1200; J1335; J2405; J2543; J3370; J7030; J7042; J7512; Q9967

== ENCOUNTER → 2016-09-14 | Outpatient (CLI) | payer MEDICARE, OTHER ==
[~2016-09-14] MED LIST changes: +IOHEXOL 300MG/ML 150 ML BTL ONE; +SOD CHLORIDE 0.9% 100 ML ONE; +Vancomycin Oral Syringe PO
--- NOTE | 2016-09-15 19:48 | RADRPT ---
PROCEDURE: CT chest, abdomen and pelvis with intravenous contrast and with 3-D reconstructions CLINICAL INDICATION: CHEST AND ABD PAIN TECHNIQUE: CT scan of the abdomen and pelvis with intravenous contrast was performed on a multisli ce CT scanner. 3-D sagittal and coronal reformatted images were obtained from the axial source image s. DLP 701.55 mGycm CTDIvol 10.20 mGy COMPARISON: None. FINDINGS: The lungs are clear. There is no pleural fluid. There is no pneumothorax. There is mild to moderate cardiomegaly. There is no pericardial fluid. The aorta is within normal limits. There are no enlarged axillary or mediastinal lymph nodes. The liver is homogenous in attenuation. There is a 1.5 cm simple cyst in segment 4A of the liver as well as sub-centimeter hypodensities in the liver which are too small to characterize, but likely re present cysts.. There is no intrahepatic or extrahepatic biliary ductal dilatation. There is mild thickening of the almanza of the gallbladder as well as possible pericholecystic fluid. The pancreas, and adrenal glands are within normal limits. There is a 1.1 cm cyst in the spleen as w ell as a sub-centimeter hypodensity which is too small to characterize, but likely represents a cyst . Bilateral kidneys are markedly atrophic and contains simple - appearing cysts measuring up to 1.4 cm on the right. There are no renal calculi. There is no obstructive uropathy. There are no dilated or thickened loops of small bowel. The appendix is within normal limits. There are numerous colonic diverticula as well as thickening of the almanza of the distal descending a nd proximal sigmoid colon and surrounding fat stranding, likely due to diverticulitis. Postsurgical changes are noted along the mesenteric border of the colon at this level (series 3, image 150). The aorta is within normal limits. There are no enlarged mesenteric, periaortic, or retroperitoneal lymph nodes. The bladder is within normal limits. There is no free air. There is no free fluid. There are no enlarged intrapelvic or inguinal lymph nodes. A right shoulder prosthesis is noted. Deformities of multiple left-sided ribs are noted consistent with remote fractures. IMPRESSION: Numerous colonic diverticula as well as thickening of the almanza of the distal descending and proxima l sigmoid colon and surrounding mesenteric fat stranding, likely due to diverticulitis. Postsurgica l changes are noted along the mesenteric border of the colon at this level. Correlation with surgic al history is recommended. Mild thickening of the wall of the gallbladder is well as possible pericholecystic fluid is noted. Findings are nonspecific, but may be due to acute cholecystitis. The right upper quadrant ultrasoun d is recommended for further evaluation. Mild to moderate cardiomegaly. Markedly atrophic kidneys. RPTAT: EE Physician Rey Date Time Electronically viewed and signed by Matthias Dickinson Physician on 09/15/2016 19:48 /
== END | disposition home or self-care (01) ==
LOC: C/S 13:19
PROVIDERS: ATTEND Internal Medicine
DX: R10.9 Unspecified abdominal pain (principal); R07.9 Chest pain, unspecified
CPT/HCPCS: 71260; 74177; Q9967

== ENCOUNTER 2016-10-17 09:14 | Emergency (ER) | payer MEDICARE, OTHER ==
[~2016-10-17] VITALS: Ht 157.5 cm; Wt 58.0 kg
[~2016-10-17 09:14] MED LIST changes: -IOHEXOL 300MG/ML 150 ML BTL ONE; -SOD CHLORIDE 0.9% 100 ML ONE
[2016-10-17 09:29] VITALS: Ht 157.5 cm; Wt 58.0 kg
[2016-10-17] MEDS ORDERED: ONDANSETRON 4 MG INJ IV STA ×2 (09:48→14:38)
[2016-10-17] MEDS ORDERED: SOD CHLORIDE 0.9% 500 ML IV STA (09:48)
[2016-10-17] MEDS ORDERED: HYDROmorphONE 1 MG/ML SYG IV STA ×2 (09:48→14:38)
--- NOTE | 2016-10-17 09:51 | ERA ---
ER Documentation Chief Complaint Date/Time DATE: 10/17/16 TIME: 09:50 Chief Complaint ap onset tuesday, on dialyisis HPI This is a 55-year-old female with a history of dialysis, last dialysis was on Tuesday. The patient states she has been having abdominal pain described as diffuse and achy/sharp for the past 4 days. She had nausea vomiting on day 1 but none since. She says she is having bowel movements that are nonbloody but are soft. She says the pain feels just like her pain she had when she had an ischemic bowel. No chest pain shortness of breath, she thinks she may have had a fever on day 1 but none since. ROS All systems reviewed and are negative except as per history of present illness. Medications Home Meds Active Scripts Metronidazole* (Flagyl*) 500 Mg Tablet, 500 MG PO TID for 10 Days, TAB Prov:SAIGE JOSEPH DO 10/17/16 Ciprofloxacin Hcl* (Ciprofloxacin Hcl*) 500 Mg Tablet, 500 MG PO BID, #20 TAB Prov:SAIGE JOSEPH DO 10/17/16 Hydrocodone/Acetaminophen ([place] 10-325 Tablet) 1 Each Tablet, 1 TAB PO Q6H Y for PAIN, #20 TAB Prov:SAIGE JOSEPH DO 10/17/16 Dicyclomine Hcl* (Bentyl*) 10 Mg Capsule, 20 MG PO QID, #30 CAP Prov:SAIGE JOSEPH DO 10/17/16 [Vancomycin Oral Syringe] 50 MG/ML SOLN No Conflict Check, 125 MG PO Q6 for 5 Days Prov:MECHELLE JOSÉ MD 07/21/16 Polyethylene Glycol* (Miralax*) 17 Gm Powd.pack, 17 GM PO DAILY, #7 Prov:YFN MONTALVO MD 07/06/16 Tramadol HCl (Tramadol HCl) 50 Mg Tablet, 50 MG PO Q6 Y for PAIN, #20 TAB Prov:YFN MONTALVO MD 07/06/16 Reported Medications Pregabalin* (Lyrica*) 75 Mg Capsule, 75 MG PO DAILY, CAP 10/17/16 Raloxifene Hcl* (Evista*) 60 Mg Tablet, 60 MG PO DAILY, TAB 07/06/16 Ranitidine Hcl* (Ranitidine Hcl*) 300 Mg Tablet, 300 MG PO HS, #30 TAB 07/06/16 Carvedilol* (Carvedilol*) 25 Mg Tablet, 25 MG PO BID, #60 TAB 07/06/16 Simvastatin* (Zocor*) 20 Mg Tablet, 20 MG PO QHS, #30 TAB 07/06/16 Calcium Acetate* (Calcium Acetate*) 667 Mg Capsule, 667 MG PO WITH MEALS, #90 CAP 07/06/16 Folic Acid* (Folic Acid*) 1 Mg Tablet, 1 MG PO DAILY, TAB 07/06/16 Duloxetine Hcl* (Duloxetine Hcl*) 30 Mg Capsule.dr, 30 MG PO BID, #30 CAP 07/06/16 Aspirin* (Aspirin* EC) 81 Mg Tablet.dr, 81 MG PO DAILY, TAB 07/06/16 Omeprazole* (Omeprazole*) 20 Mg Capsule.dr, 20 MG PO BID, #60 CAP 07/06/16 Prednisone* (Prednisone*) 5 Mg Tab, 5 MG PO DAILY, TAB 07/06/16 Multivit/Ca Carb/B Cmplx/Fa* (Teodora-Sarah*) 1 Tab Tab, 1 TAB PO DAILY, TAB 07/06/16 Hydroxychloroquine Sulfate* (Hydroxychloroquine Sulfate*) 200 Mg Tablet, 300 MG PO DAILY, TAB 07/06/16 Hydrocodone/Acetaminophen ([place] 10-325 Tablet) 1 Each Tablet, 2 TAB PO QID Y for PAIN, TAB 07/06/16 Discontinued Reported Medications Gabapentin* (Gabapentin*) 300 Mg Capsule, 300 MG PO QHS, #60 CAP 07/06/16 Allergies Allergies: Coded Allergies: No Known Allergy (Unverified , 07/08/16) PMhx/Soc History of Surgery: Yes (RIGHT SHOULDER SX, BRENT FISTULA, TUBAL LIGATION, ) Anesthesia Reaction: No Hx Neurological Disorder: Yes (LUPUS, NEUROPATHY, FIBROMYALGIA) Hx Respiratory Disorders: No Hx Cardiac Disorders: No Hx Psychiatric Problems: No Hx Miscellaneous Medical Probl: Yes (see notes) Hx Alcohol Use: No Hx Substance Use: No Hx Tobacco Use: No FmHx Family History: No coronary disease Physical Exam Vitals Vital Signs Date Time Temp Pulse Resp B/P Pulse Ox O2 Delivery O2 Flow Rate FiO2 10/17/16 09:29 98.1 65 18 68/39 99 Physical Exam Const: Well-developed, well-nourished Head: Atraumatic, normocephalic Eyes: Normal Conjunctiva, PERRLA, EOMI, normal sclera, no nystagmus ENT: Normal External Ears, Nose and Mouth, moist mucus membranes. Neck: Full range of motion. No meningismus, no lymphadenopathy. Resp: Clear to auscultation bilaterally, no wheezing, rhonchi, rales Cardio: Regular rate and rhythm, no murmurs, S1 S2 present Abd: Soft, tenderness in the epigastric region, left upper quadrant, left lower quadrant, mild to moderate, non distended. Normal bowel sounds, no guarding or rebound, no pulsitile abdominal masses or bruits Skin: No petechiae or rashes, no ecchymosis , no maculopapular rash Back: No midline or flank tenderness Ext: No cyanosis, or edema, FROM x 4, normal inspection, neurovascularly intact x 4 Neur: Awake and alert, STR 5/5 x 4, sensation intact x 4, no focal findings, cerebellum intact Psych: Normal Mood and Affect Result Diagram: 10/17/16 0455 10/17/16 0455 Results 24 hrs Laboratory Tests Test 10/17/16 04:55 White Blood Count 6.410^3/ul Red Blood Count 3.3610^6/ul Hemoglobin 11.3g/dl Hematocrit 35.6% Mean Corpuscular Volume 106.0fl Mean Corpuscular Hemoglobin 33.6pg Mean Corpuscular Hemoglobin Concent 31.7g/dl Red Cell Distribution Width 13.1% Platelet Count 30539^3/UL Mean Platelet Volume 11.3fl Neutrophils % 64.6% Lymphocytes % 25.6% Monocytes % 8.5% Eosinophils % 0.8% Basophils % 0.2% Nucleated Red Blood Cells % 0.0/100WBC Neutrophils # 4.110^3/ul Lymphocytes # 1.610^3/ul Monocytes # 0.510^3/ul Eosinophils # 0.110^3/ul Basophils # 0.010^3/ul Nucleated Red Blood Cells # 0.010^3/ul Sodium Level 138mmol/L Potassium Level 3.8mmol/L Chloride Level 96mmol/L Carbon Dioxide Level 24mmol/L Anion Gap 22 Blood Urea Nitrogen 52mg/dl Creatinine 7.26mg/dl Glucose Level 133mg/dl Calcium Level 9.2mg/dl Total Bilirubin 0.0mg/dl Direct Bilirubin 0.00mg/dl Indirect Bilirubin 0.0mg/dl Aspartate Amino Transf (AST/SGOT) 25IU/L Alanine Aminotransferase (ALT/SGPT) 23IU/L Alkaline Phosphatase 63IU/L Total Protein 6.9g/dl Albumin 3.2g/dl Globulin 3.70g/dl Albumin/Globulin Ratio 0.86 Lipase 36U/L Current Medications Medications (Trade) Dose Ordered Sig/Tereza Route PRN Reason Start Time Stop Time Status Last Admin Dose Admin Sodium Chloride (NS) 500 ml @ 500 mls/hr Q1H STAT IV 10/17/16 09:48 10/17/16 10:47 DC 10/17/16 10:09 Hydromorphone HCl (Dilaudid) 1 mg ONCE STAT IV 10/17/16 09:48 10/17/16 09:50 DC 10/17/16 10:09 Ondansetron HCl (Zofran Inj) 4 mg ONCE STAT IV 10/17/16 09:48 10/17/16 09:50 DC 10/17/16 10:09 IV Flush 10 ml 10 ml STK-MED ONCE .ROUTE 10/17/16 10:36 10/17/16 10:37 DC 10/17/16 10:54 Sodium Chloride (NS) 100 ml @ ud STK-MED ONCE .ROUTE 10/17/16 10:36 10/17/16 10:37 DC 10/17/16 10:54 Iodixanol (Visipaque Locm) 100 ml STK-MED ONCE .ROUTE 10/17/16 10:36 10/17/16 10:37 DC 10/17/16 10:54 Hydromorphone HCl (Dilaudid) 1 mg ONCE STAT IV 10/17/16 14:38 10/17/16 14:39 DC 10/17/16 14:46 Ondansetron HCl (Zofran Inj) 4 mg ONCE STAT IV 10/17/16 14:38 10/17/16 14:39 DC 10/17/16 14:46 Procedures/MDM PROCEDURE: CT of the abdomen and pelvis CLINICAL INDICATION: Abdominal pain TECHNIQUE: The study was performed utilizing a [employer] 64-slice multidetector CT scanner. Direct spiral axial sections were obtained through the abdomen and pelvis with intravenous contrast. After administration of 90 cc of Visipaque 320, postcontrast images were obtained. Coronal and sagittal reformatted images were performed. The CTDI vol is 9.91 mGy and the DLP is 538.1 mGy-cm. The images were reviewed on a PACS workstation. COMPARISON: 07/12/2016 FINDINGS: CT abdomen: Bibasilar atelectasis is seen. Again seen is a 5 mm pleural-based nodule in the right lower lobe and is unchanged. The heart is moderately enlarged. No pericardial effusion is seen. The liver is normal in size and contour. No focal liver lesions or intrahepatic biliary dilatation is seen. The gallbladder is distended with gallbladder wall thickening. Pericholecystic edema is seen. No common bile duct dilatation is seen. Low attenuation lesions in the spleen are once again seen with the largest measuring 1 cm in size and appears stable. The spleen is normal in size. The remainder of the spleen is homogeneous in attenuation. The spleen, pancreas, and adrenal glands are unremarkable in appearance. The kidneys are atrophic with bilateral renal cysts which are once again seen. No evidence of hydronephrosis or nephrolithiasis is seen. The stomach is unremarkable. Again seen is diverticulosis in the descending and sigmoid colon. Bowel wall thickening in the distal descending colon is once again seen with inflammatory changes in the adjacent mesentery. The small and large bowel are unremarkable in course and caliber. No inflammatory changes in the periappendiceal region is seen. No enlarged lymph nodes or fluid collections are seen. The aorta is normal in caliber. CT pelvis: No pelvic mass, adenopathy, or focal fluid collection is seen. There is no free fluid. The urinary bladder is normal. Degenerative spondylosis of the lumbar spine is seen. No osseous lesions are seen. IMPRESSION: 1. CT findings consistent with acute descending colon diverticulitis as described above. 2. Distended gallbladder with wall thickening and pericholecystic edema. Ultrasound correlation is recommended. 3. Stable 5 mm pleural-based nodule right lower lobe. RPTAT: HPNM Sd Brown Physician Date Time Electronically viewed and signed by Sd Brown Physician on 10/17/2016 11 :19 / CC: SAIGE JOSEPH DO PROCEDURE: Right Upper Quadrant Ultrasound. CLINICAL INDICATION: Abdominal Pain TECHNIQUE: Multiple real-time images were acquired of the patient's right upper quadrant abdomen and retroperitoneum utilizing a high resolution transducer. COMPARISON: CT abdomen/pelvis from the same date FINDINGS: The liver measures 14.8 cm, and demonstrates normal echogenicity. The main portal vein is patent with proper directional flow. There is no intrahepatic biliary ductal dilatation. The extrahepatic common bile duct measures 9 mm. There is no cholelithiasis. There is mild nonspecific gallbladder wall thickening to 4 mm. There is no pericholecystic fluid. The visualized pancreas is unremarkable. The right kidney measures 8.2 cm and demonstrates increased echogenicity. There is no right renal calculus or hydronephrosis. There is a 1.2 cm simple cyst in the midpole of the right kidney. The visualized abdominal aorta and IVC are grossly unremarkable. IMPRESSION: There is no cholelithiasis. There is mild nonspecific gallbladder wall thickening without pericholecystic fluid. Acute cholecystitis is considered unlikely, however there is abnormal dilatation of the common bile duct to 9 mm. If clinical suspicion for acute cholecystitis persists and / or there are signs of cholestasis such as an elevated bilirubin level, a HIDA scan or MRCP can be obtained for further evaluation. Atrophic and echogenic right kidney suggests medical renal disease. 1.2 cm simple right renal cyst. RPTAT: EE Physician Rey Date Time Electronically viewed and signed by Physician Rey on 10/17/2016 13:42 RA/ CC: SAIGE JOSEPH DO Regards to gallbladder, there is no signs of elevated white blood count, no elevated liver function test, no elevated bilirubin. The patient's pain is mostly in the epigastric and left side of the abdomen. We will treat for diverticulitis I do not think the pathology is gallbladder related We will treat with Flip Zaragoza and Ismael. The patient she must have dialysis tomorrow because she received IV contrast. The patient strict signs and symptoms to return if she gets any worse in the next 24-48 hours to return immediately Departure Diagnosis: Primary Impression: Diverticulitis Qualified Code: K57.32 - Diverticulitis of large intestine without perforation or abscess without bleeding Condition: Stable SAIGE JOSEPH DO October 17, 2016 09:51
[2016-10-17 10:02] LABS: ADD SCAN DIFF NO
[2016-10-17 10:09] LABS: BASOPHILS % 0.2 % (0.0-2.0); EOSINOPHILS # 0.1 10^3/ul (0.0-0.5); EOSINOPHILS % 0.8 % (0.0-7.0); HEMATOCRIT 35.6 % (37.0-47.0); HEMOGLOBIN 11.3 g/dl (12.0-16.0); LYMPHOCYTES # 1.6 10^3/ul (0.8-2.9); LYMPHOCYTES % 25.6 % (15.0-51.0); MEAN CORPUSCULAR HEMOGLOBIN 33.6 pg (29.0-33.0); MEAN CORPUSCULAR HGB CONC 31.7 g/dl (32.0-37.0); MEAN PLATELET VOLUME 11.3 fl (7.4-10.4); MONOCYTE # 0.5 10^3/ul (0.3-0.9); MONOCYTES % 8.5 % (0.0-11.0); NEUTROPHIL # 4.1 10^3/ul (1.6-7.5); NEUTROPHILS % 64.6 % (39.0-77.0); PLATELET COUNT 100 10^3/UL (140-415); RED BLOOD COUNT 3.36 10^6/ul (4.20-5.40); RED CELL DISTRIBUTION WIDTH 13.1 % (11.5-14.5); WHITE BLOOD COUNT 6.4 10^3/ul (4.8-10.8)
[2016-10-17 10:22] LABS: ALBUMIN 3.2 g/dl (3.3-4.9)
[2016-10-17 10:23] LABS: POTASSIUM 3.8 mmol/L (3.5-5.1)
[2016-10-17 10:25] LABS: ALBUMIN/GLOBULIN RATIO 0.86; CALCIUM 9.2 mg/dl (8.4-10.2); CREATININE 7.26 mg/dl (0.44-1.00); TOTAL PROTEIN 6.9 g/dl (6.1-8.1)
[2016-10-17] MEDS ORDERED: IODIXANOL LOCM 100 ML BTL ONE (10:36)
[2016-10-17] MEDS ORDERED: SOD CHLORIDE 0.9% 100 ML ONE (10:36)
[2016-10-17] MEDS ORDERED: LYR75 PO (11:13)
--- NOTE | 2016-10-17 11:20 | RADRPT ---
PROCEDURE: CT of the abdomen and pelvis CLINICAL INDICATION: Abdominal pain TECHNIQUE: The study was performed utilizing a GE [id number] 64-slice multidetector CT scanner. Dir ect spiral axial sections were obtained through the abdomen and pelvis with intravenous contrast. Af ter administration of 90 cc of Visipaque 320, postcontrast images were obtained. Coronal and sagitt al reformatted images were performed. The CTDI vol is 9.91 mGy and the DLP is 538.1 mGy-cm. The tsering ges were reviewed on a PACS workstation. COMPARISON: 07/12/2016 FINDINGS: CT abdomen: Bibasilar atelectasis is seen. Again seen is a 5 mm pleural-based nodule in the right lower lobe and is unchanged. The heart is moderately enlarged. No pericardial effusion is seen. The liver is normal in size and contour. No focal liver lesions or intrahepatic biliary dilatation is seen. The gallbladder is distended with gallbladder wall thickening. Pericholecystic edema is se en. No common bile duct dilatation is seen. Low attenuation lesions in the spleen are once again s een with the largest measuring 1 cm in size and appears stable. The spleen is normal in size. The remainder of the spleen is homogeneous in attenuation. The spleen, pancreas, and adrenal glands are unremarkable in appearance. The kidneys are atrophic with bilateral renal cysts which are once agai n seen. No evidence of hydronephrosis or nephrolithiasis is seen. The stomach is unremarkable. Again seen is diverticulosis in the descending and sigmoid colon. [place] el wall thickening in the distal descending colon is once again seen with inflammatory changes in th e adjacent mesentery. The small and large bowel are unremarkable in course and caliber. No inflamm atory changes in the periappendiceal region is seen. No enlarged lymph nodes or fluid collections ar e seen. The aorta is normal in caliber. CT pelvis: No pelvic mass, adenopathy, or focal fluid collection is seen. There is no free fluid. The urinary bladder is normal. Degenerative spondylosis of the lumbar spine is seen. No osseous les ions are seen. IMPRESSION: 1. CT findings consistent with acute descending colon diverticulitis as described above. 2. Distended gallbladder with wall thickening and pericholecystic edema. Ultrasound correlation is recommended. 3. Stable 5 mm pleural-based nodule right lower lobe. RPTAT: HPNM Sd Brown, Physician Date Time Electronically viewed and signed by Sd Brown, Physician on 10/17/2016 11:19 /
--- NOTE | 2016-10-17 13:42 | RADRPT ---
PROCEDURE: Right Upper Quadrant Ultrasound. CLINICAL INDICATION: Abdominal Pain TECHNIQUE: Multiple real-time images were acquired of the patient's right upper quadrant abdomen a nd retroperitoneum utilizing a high resolution transducer. COMPARISON: CT abdomen/pelvis from the same date FINDINGS: The liver measures 14.8 cm, and demonstrates normal echogenicity. The main portal vein is patent wit h proper directional flow. There is no intrahepatic biliary ductal dilatation. The extrahepatic comm on bile duct measures 9 mm. There is no cholelithiasis. There is mild nonspecific gallbladder wall thickening to 4 mm. There i s no pericholecystic fluid. The visualized pancreas is unremarkable. The right kidney measures 8.2 cm and demonstrates increased echogenicity. There is no right renal ca lculus or hydronephrosis. There is a 1.2 cm simple cyst in the midpole of the right kidney. The visualized abdominal aorta and IVC are grossly unremarkable. IMPRESSION: There is no cholelithiasis. There is mild nonspecific gallbladder wall thickening without perichole cystic fluid. Acute cholecystitis is considered unlikely, however there is abnormal dilatation of t he common bile duct to 9 mm. If clinical suspicion for acute cholecystitis persists and / or there a re signs of cholestasis such as an elevated bilirubin level, a HIDA scan or MRCP can be obtained for further evaluation. Atrophic and echogenic right kidney suggests medical renal disease. 1.2 cm simple right renal cyst. RPTAT: EE Physician Rey Date Time Electronically viewed and signed by Physician Rey on 10/17/2016 13:42 /
[2016-10-17] MEDS ORDERED: METR500T PO (14:47)
[2016-10-17] MEDS ORDERED: HYDR-902 PO (14:47)
[2016-10-17] MEDS ORDERED: DICY10CA60 PO (14:47)
[2016-10-17] MEDS ORDERED: CIPR500T4 PO (14:47)
[2016-10-17 15:00] VITALS: BP 122/64; PULSE 66; RESP 20
== END 2016-10-17 15:01 | disposition home or self-care (01) ==
LOC: E/R 09:14
DX: K57.32 Diverticulitis of large intestine without perforation or abscess without bleeding (principal); R11.2 Nausea with vomiting, unspecified; Z79.82 Long term (current) use of aspirin
CPT/HCPCS: 36415; 74177; 76705; 80053; 83690; 85025; 96374; 96375; 96376; 99285; J1170; J2405; J7040; Q9967

== ENCOUNTER → 2018-02-13 | Outpatient (CLI) | END | disposition home or self-care (01) ==

== ENCOUNTER 2018-06-12 21:13 | Inpatient (IN) | payer MEDICARE, OTHER ==
[~2018-06-12] VITALS: Ht 152.4 cm; Wt 63.8 kg
[~2018-06-12 21:13] MED LIST changes: -ASPI-664 PO; +ASPI-817 PO; +CIPR500T4 PO; +DICY10CA40 PO; -GABA300C16 PO; +HYDR-3980 PO; -HYDR-902 PO; +LYR75 PO; +METR500T PO; -PRED5 PO; +PRED5TAB PO
[2018-06-12] MEDS ORDERED: ACETAMINOPHEN 325 MG TAB PO STA (21:42)
--- NOTE | 2018-06-12 22:00 | ERD ---
ER Documentation Chief Complaint Chief Complaint FEVER WITH NAUSEA & HEADACHE X2DAYS; HX OF KIDNEY TRANSPLANT HPI 57-year-old female with a history of lupus, end-stage renal disease status post transplant June 2017, fibromyalgia and diverticulitis presents to the ED complaining of a 2-day history of fevers and chills. Denies URI symptoms, cough or shortness of breath. Mild, generalized, abdominal pain which localized to t he left greater than right lower quadrant with dysuria and polyuria. Nausea with several episodes of nonbloody nonbilious emesis but no diarrhea or constipation. Denies chest pain or palpitations. No skin rash. Denies leg pain or swelling. Mild, generalized headache but no neck or back pain. No relieving or exacerbating factors. ROS All systems reviewed and are negative except as per history of present illness. Medications Home Meds Active Scripts [Vancomycin Oral Syringe] 50 MG/ML SOLN No Conflict Check, 125 MG PO Q6 for 5 Days Prov:MECHELLE JOSÉ MD 07/21/16 Tramadol HCl (Tramadol HCl) 50 Mg Tablet, 50 MG PO Q6 PRN for PAIN, #20 TAB Prov:YFN MONTALVO MD 07/06/16 Reported Medications Mycophenolate Mofetil* (Cellcept*) 200 Mg/Ml Susp.recon, 500 MG PO Q12, ML TAKE 2 TABLETS BY MOUTH TWICE DAILY 06/12/18 Tacrolimus* (Tacrolimus*) 1 Mg Capsule, 4 MG PO Q12, CAP 06/12/18 Sulfamethoxazole/Trimethoprim (Bactrim 400-80 mg Tablet) 1 Each Tablet, 1 EACH PO DAILY, TAB 06/12/18 Diltiazem HCl (Diltiazem ER) 180 Mg Tab.er.24h, 180 MG PO QAM, #30 CAP 06/12/18 Ergocalciferol (Vitamin D2) (VITAMIN D2) 2,000 Unit Tablet, 2000 UNIT PO DAILY, TAB 06/12/18 Pregabalin* (Lyrica*) 100 Mg Capsule, 100 MG PO DAILY, CAP 06/12/18 Prednisone* (Prednisone*) 10 Mg Tab, 10 MG PO DAILY, TAB 06/12/18 Ranitidine Hcl* (Ranitidine Hcl*) 300 Mg Tablet, 300 MG PO HS, #30 TAB 07/06/16 Folic Acid* (Folic Acid*) 1 Mg Tablet, 1 MG PO DAILY, TAB 07/06/16 Duloxetine Hcl* (Duloxetine Hcl*) 30 Mg Capsule.dr, 30 MG PO BID, #30 CAP 07/06/16 Omeprazole* (Omeprazole*) 20 Mg Capsule.dr, 20 MG PO BID, #60 CAP 07/06/16 Hydrocodone/Acetaminophen ([place]year 10-325 Tablet) 1 Each Tablet, 2 TAB PO QID PRN for PAIN, TAB 07/06/16 Discontinued Reported Medications Pregabalin* (Lyrica*) 75 Mg Capsule, 75 MG PO DAILY, CAP 10/17/16 Raloxifene Hcl* (Evista*) 60 Mg Tablet, 60 MG PO DAILY, TAB 07/06/16 Carvedilol* (Carvedilol*) 25 Mg Tablet, 25 MG PO BID, #60 TAB 07/06/16 Simvastatin* (Zocor*) 20 Mg Tablet, 20 MG PO QHS, #30 TAB 07/06/16 Calcium Acetate* (Calcium Acetate*) 667 Mg Capsule, 667 MG PO WITH MEALS, #90 CAP 07/06/16 Aspirin* (Aspirin* EC) 81 Mg Tablet.dr, 81 MG PO DAILY, TAB 07/06/16 Prednisone* (Prednisone*) 5 Mg Tab, 5 MG PO DAILY, TAB 07/06/16 Multivit/Ca Carb/B Cmplx/Fa* (Teodora-Sarah*) 1 Tab Tab, 1 TAB PO DAILY, TAB 07/06/16 Hydroxychloroquine Sulfate* (Hydroxychloroquine Sulfate*) 200 Mg Tablet, 300 MG PO DAILY, TAB 07/06/16 Discontinued Scripts Metronidazole* (Flagyl*) 500 Mg Tablet, 500 MG PO TID for 10 Days, TAB Prov:IHSAN JOSEPHS A. DO 10/17/16 Ciprofloxacin Hcl* (Ciprofloxacin Hcl*) 500 Mg Tablet, 500 MG PO BID, #20 TAB Prov:SAIGE JOSEPH AJesusita DO 10/17/16 Hydrocodone/Acetaminophen (Goodyear 10-325 Tablet) 1 Each Tablet, 1 TAB PO Q6H PRN for PAIN, #20 TAB Prov:HARPAL JOSEPHSTCELESTINAS A. DO 10/17/16 Dicyclomine HCl (Dicyclomine HCl) 10 Mg Capsule, 20 MG PO QID, #30 CAP Prov:SAIGE JOSEPH DO 10/17/16 Polyethylene Glycol* (Miralax*) 17 Gm Powd.pack, 17 GM PO DAILY, #7 Prov:YFN MONTALVO MD 07/06/16 Allergies Allergies: Coded Allergies: No Known Allergy (Unverified , 07/08/16) PMhx/Soc Reviewed in chart. As per HPI. History of Surgery: Yes (RIGHT SHOULDER SX, BRENT FISTULA, TUBAL LIGATION, ) Anesthesia Reaction: No Hx Neurological Disorder: Yes (LUPUS, NEUROPATHY, FIBROMYALGIA) Hx Respiratory Disorders: No Hx Cardiac Disorders: No Hx Psychiatric Problems: No Hx Miscellaneous Medical Probl: Yes (see notes) Hx Alcohol Use: No Hx Substance Use: No Hx Tobacco Use: No Smoking Status: Never smoker FmHx No family history relevant to presenting complaint Physical Exam Vitals Vital Signs Date Temp Pulse Resp B/P (MAP) Pulse Ox O2 O2 Flow FiO2 Time Delivery Rate 06/12/18 104.1 104 20 168/72 95 21:16 (104) Physical Exam Const: Alert, moderate distress Head: Atraumatic Eyes: Pupils equal reactive to light, extraocular movements intact. Normal Conjunctiva ENT: Normal External Ears, Nose and Mouth. Pharynx is clear without erythema or exudate. Mucous membranes are moist. Neck: Full range of motion. No JVD. Nontender. No meningismus. Resp: Breath sounds are equal and clear to auscultation bilaterally Cardio: Tachycardic. Regular rate and rhythm, no murmurs Abd: Soft, moderate generalized tenderness which localizes of the left lower quadrant over the renal allograft. No rebound or guarding. Skin: No petechiae or rashes Back: No midline or flank tenderness Ext: No cyanosis, or edema Neur: Awake and alert. No focal deficit observed. Psych: Normal Mood and Affect Result Diagram: 06/16/18 0554 06/16/18 0554 Results 24 hrs Laboratory Tests Test 06/12/18 22:20 06/12/18 22:30 06/12/18 22:31 06/12/18 22:32 Urine Color YELLOW Urine Clarity SLIGHTLY CLOUDY Urine pH 5.0 Urine Specific 1.015 [place] Urine Ketones NEGATIVE mg/dL Urine Nitrite POSITIVE mg/dL Urine Bilirubin NEGATIVE mg/dL Urine NEGATIVE mg/dL Urobilinogen Urine Leukocyte 1+ Eloisa/ul Esterase Urine Microscopic 3 /HPF RBC Urine Microscopic 32 /HPF WBC Urine Bacteria MANY /HPF Urine Hemoglobin 2+ mg/dL Urine Glucose NEGATIVE mg/dL Urine Total 2+ mg/dl Protein White Blood Count 9.6 10^3/ul Red Blood Count 3.68 10^6/ul Hemoglobin 12.2 g/dl Hematocrit 37.1 % Mean Corpuscular 100.8 fl Volume Mean Corpuscular 33.2 pg Hemoglobin Mean Corpuscular 32.9 g/dl Hemoglobin Concen t Red Cell 12.4 % Distribution Width Platelet Count 72 10^3/UL Mean Platelet 12.3 fl Volume Immature 0.800 % Granulocytes % Neutrophils % % Segmented 92 % Neutrophils % (Manual) Band Neutrophils 1 % % (Manual) Lymphocytes % % Lymphocytes % 1 % (Manual) Monocytes % % Monocytes % 6 % (Manual) Eosinophils % % Basophils % % Nucleated Red 0.0 /100WBC Blood Cells % Immature 0.080 10^3/ul Granulocytes # Neutrophils # 10^3/ul Neutrophils # 8.8 10^3/ul (Manual) Band Neutrophils 0.0 10^3/ul # Lymphocytes 0.0 10^3/ul (Manual) Lymphocytes # 10^3/ul Monocytes # 10^3/ul Monocytes # 0.5 10^3/ul (Manual) Eosinophils # 10^3/ul Basophils # 10^3/ul Nucleated Red 10^3/ul Blood Cells # Platelet Estimate DECREASED Giant Platelets 2 % Polychromasia 1+ Anisocytosis 1+ Macrocytosis 1+ Prothrombin Time 14.3 Sec Prothrombin Time 1.1 Ratio INR International 1.10 Normalized Ratio Activated 34.7 Sec Partial Thrombopl ast Time Sodium Level 130 mmol/L Potassium Level 5.2 mmol/L Chloride Level 101 mmol/L Carbon Dioxide 21 mmol/L Level Anion Gap 8 Blood Urea 43 mg/dl Nitrogen Creatinine 1.31 mg/dl Est Glomerular 42 mL/min Filtrat Rate mL/min Glucose Level 150 mg/dl Calcium Level 8.5 mg/dl Troponin I 0.082 ng/ml POC Venous 1.9 mmol/L Lactate Current Medications Medications Dose Sig/Tereza Start Time Status Last (Trade) Ordered Route PRN Stop Time Admin Dose Reason Admin 650 mg ONCE STAT 06/12/18 DC 06/12/18 Acetaminophen PO 21:42 21:59 (Tylenol 06/12/18 21:43 Tab) Cefepime HCl 50 ml @ ONCE STAT 06/12/18 DC 06/12/18 100 mls/hr IVPB 22:02 22:50 06/12/18 22:31 Vancomycin 250 ml @ ONCE ONCE 06/12/18 DC 06/13/18 HCl 125 mls/hr IVPB 22:30 00:39 06/13/18 00:29 Sodium 1,840 ml BOLUS OVER 2 06/12/18 DC 06/12/18 Chloride HOURS STAT 22:21 22:40 (NS) IV* 06/12/18 22:25 Procedures/MDM DOCUMENTS REVIEWED: ED nurse, prior ED, prior records EKG: Time: 2200. Sinus tachycardia. Ventricular rate 102. Normal [place] interval. Right bundle branch block with wide QRS duration of 126 ms. [address]H. No acute ST segment elevation depression. No ectopy. My Interpretation IMAGING: PROCEDURE: XR Chest. CLINICAL INDICATION: Possible sepsis. TECHNIQUE: AP portable views of the chest were obtained. COMPARISON: 05/31/2017 FINDINGS: There is mild cardiomegaly. There is mild atherosclerotic calcification of the thoracic aorta. There is mild prominence of the central pulmonary vasculature. The peripheral vascular markings are distinct. The lungs are clear without consolidation, mass or nodule. No signs of pleural fluid or pneumothorax are seen. There are postoperative changes from complete right shoulder arthroplasty soft tissues are unremarkable. IMPRESSION: 1. No evidence for active cardiopulmonary disease. 2. Mild cardiomegaly with central pulmonary vascular congestion. No evidence of interstitial pulmonary edema. 3. Mild atherosclerotic calcification of the thoracic aorta. RPTAT: HGAS .Nestor Moore MD, MD Date Time Electronically viewed and signed by .Nestor Moore MD, on 06/12/2018 22:36 .S/ PROCEDURE: US kidney CLINICAL INDICATION: Fever, status post transplant TECHNIQUE: Serrano scale and color Doppler sonographic evaluation of transplant kidney and urinary bladder was performed. COMPARISON: CT abdomen and pelvis performed on the same day. FINDINGS: The left lower quadrant transplant kidney measures 11.7 x 6.2 x 6.5 cm in length. There is no hydronephrosis or amanda-transplant fluid collection. Color Doppler imaging demonstrates vascular flow within the kidney. Bilateral rosebud kidneys are markedly atrophic and echogenic. Right rosebud kidney measures 5.9 cm in length. Left rosebud kidney measures 5 cm in length. There is no hydronephrosis on either side. Urinary bladder is not visualized and likely empty. IMPRESSION: 1. No evidence of hydronephrosis or amanda-transplant fluid collection. 2. Atrophic rosebud kidneys with renal parenchymal disease. RPTAT:HAJM Physician Marisol Date Time Electronically viewed and signed by Physician Marisol on 06/12/2018 23:52 RM/ PROCEDURE: CT abdomen and pelvis without contrast. CLINICAL INDICATION: Abdominal pain. TECHNIQUE: CT scan of the abdomen and pelvis without contrast was performed. Sagittal and coronal reformatted images were obtained from the axial source images. DICOM images are available. One or more of the following dose reduction techniques were used: Automated exposure control, adjustment of the mA and/or kV according to patient size, use of iterative reconstruction technique. CTDI = 10.44 mGy; DLP = 589.90 mGy-cm COMPARISON: Renal ultrasound 06/12/2018. CT 10/17/2016 FINDINGS: Visualized lower thorax: The lung bases are clear. There is no evidence for pleural effusion. Cardiomegaly with extensive coronary artery atherosclerotic calcification is present Liver, gallbladder, pancreas and spleen: The liver is normal and size, contour and attenuation. There is no evidence for a solid liver mass or ductal dilatat ion. Incidental left hepatic lobe cyst is again noted. Gallbladder distension with some sludge or tiny gallstones in the gallbladder lumen without evidence for cholecystitis. No common bile duct abnormality is demonstrated. The pancreas is unremarkable. The spleen is normal in size. Adrenal glands and genitourinary system: The adrenal glands are normal bilaterally. Severe bilateral renal atrophy is present renal cortex thinning, the pattern most consistent with renal failure. There is a transplanted kidney in the left pelvis with stranding of the fat surrounding the transplanted kidney raising concern for infection possibly pyelonephritis without obvious abscess. The ureters are unremarkable. Urinary bladder is contracted and difficult to evaluate. Uterine atrophy is noted. There is no evidence for ovarian or adnexal mass. Gastrointestinal system: The stomach is normal in caliber with no abnormality of significance. The small bowel is normal in caliber with no ileus, obst ruction or wall thickening. There is no evidence of appendicitis. A moderate amount of fecal debris throughout the colon is concerning for constipation. There is extensive diverticular disease predominately within the distal colon. There is no evidence for colitis or diverticulitis. Peritoneum, retroperitoneum, lymph nodes and vessels: The abdominal aorta is normal in caliber. There is severe aortic and iliac system atherosclerotic calcification. The inferior vena cava is unremarkable. There is no evidence for adenopathy or mass. There is no ascites. No pneumoperitoneum is present Osseous structures and musculoskeletal findings: There is no fracture, lytic or blastic lesion. Degenerative disc disease at L4-5 and L5-S1 is present No muscular abnormality or soft tissue pathology is present. RPTAT:HJJR IMPRESSION: 1. Inflammatory stranding of the fat surrounding the transplanted kidney in the left pelvis is concerning for pyelonephritis without evidence of abscess. 2. Gallbladder sludge or possibly small gallstones without evidence for cholecystitis. 3. Cardiomegaly and extensive coronary artery atherosclerotic calcification. 4. Severe atrophy of the rosebud kidneys compatible with renal failure. 5. Diffuse diverticulosis of the colon without diverticulitis. Physician Lorrie Date Time Electronically viewed and signed by Physician Lorrie on 06/13/2018 00:05 JR/ MEDICAL DECISION MAKIN-year-old female with a history of lupus, end-stage renal disease status post transplant June 2017, fibromyalgia and diverticulitis presents to the ED complaining of a 2-day history of fevers and chills. CBC reveals thrombocytopenia but no leukocytosis or anemia. Chemistry significant for elevated BUN/creatinine of 43/1.3 however post transplant baseline is unknown with hyponatremia with borderline hyperkalemia. Urinalysis significant for WBC's, positive nitrite, esterase with many bacteria. Culture is pending. Chest x-ray negative for acute infiltrate, effusion or pneumonia. Renal ultrasound reveals no evidence of hydronephrosis or fluid collection around the transplanted kidney. CT of the abdomen and pelvis without intr avenous contrast to evaluate for AAA, diverticulitis, appendicitis, abscess, bowel obstruction and obstructive uropathy reveals diverticulosis without diverticulitis and perinephric fat stranding around the transplanted kidney without fluid collection or abscess consistent with pyelonephritis. Multiple criteria for systemic inflammatory response syndrome including fever and tachycardia. Patient, immunosuppressed, status post renal transplant presents with sepsis secondary to urinary tract infection/pyelonephritis. Normal saline 30 cc/kg fluid bolus given. Initial lactate is 1.9 mmol/L and repeat is 1.5 mmol/L. Antibiotics initiated after cultures. No elevated lactate, hypotension or criteria for severe sepsis or septic shock. Thrombocytopenia of uncertain etiology possibly secondary to sepsis. TTP unlikely. Admit to telemetry for infectious source control, further evaluation and management. CRITICAL CARE Critical care time 35 minutes Emergent fluid management while maintaining close respiratory support. Provision of immediate and broad-spectrum antibiotic therapy. Simultaneous assessment for possible sources in order to direct targeted therapy. Consideration for invasive and chemical support to prevent cardiopulmonary collapse. Critical care time is independent of procedures performed. CALLS/CONSULTS: Time: 22:58, Dr Bearden. PATIENT CARE TRANSITIONED: Time:23:04, Dr. Munguia. Counseled patient and family regarding diagnosis, diagnostic results and plan for admission. Departure Diagnosis: Primary Impression: Fever Fever type: unspecified Qualified Codes: R50.9 - Fever, unspecified Additional Impressions: Sepsis Sepsis type: sepsis due to unspecified organism Qualified Codes: A41.9 - Sepsis, unspecified organism SIRS (systemic inflammatory response syndrome) History of renal transplant Abdominal pain, left lower quadrant Urinary tract infection Urinary tract infection type: site unspecified Hematuria presence: without hematuria Qualified Codes: N39.0 - Urinary tract infection, site not specified DANNY (acute kidney injury) Dehydration Condition: Serious BRITTANY MCCARTY MD Jun 12, 2018 22:00
[2018-06-12] MEDS ORDERED: CEFEPIME 2GM/50 ML (PMX) 50 ML IVPB STA (22:02)
[2018-06-12] MEDS ORDERED: VANCOMYCIN 1 GM (PMX) 250 ML IVPB ONE (22:30)
[2018-06-12] MEDS: SODIUM CHLORIDE 0.9% 1L BAG IV* STA ×2 (22:40→22:43)
[2018-06-12] MEDS ORDERED: PRED10TA PO (23:10)
[2018-06-12] MEDS ORDERED: LYRI100 PO (23:10)
[2018-06-12] MEDS ORDERED: SULF1TAB30 PO (23:15)
[2018-06-12] MEDS ORDERED: ERGO2000 PO (23:15)
[2018-06-12] MEDS ORDERED: DILT180T7 PO (23:15)
[2018-06-12] MEDS ORDERED: TACR1CAP PO (23:16)
[2018-06-12] MEDS ORDERED: MYCO200S PO (23:17)
[2018-06-12] MEDS ORDERED: ONDANSETRON 4 MG INJ IV PRN (23:30)
[2018-06-12] MEDS ORDERED: HYDROCODONE/APAP (10/325) TAB PO PRN (23:30)
[2018-06-12] MEDS ORDERED: ACETAMINOPHEN 325 MG TAB PO PRN ×2 (23:30)
[2018-06-13] VITALS (13 sets, daily range): BP systolic 119–161; BP diastolic 58–76; PULSE 71–102; RESP 20–22; Ht 152.4 cm; Wt 63.8 kg
[2018-06-13] MEDS: SOD CHLORIDE 0.9% 1,000 ML IV SCH ×3 (02:38→17:32)
[2018-06-13] MEDS ORDERED: SOD CHLORIDE 0.9% 1,000 ML IV SCH (08:00)
[2018-06-13] MEDS ORDERED: traMADol 50 MG TAB PO PRN (08:00)
--- NOTE | 2018-06-13 08:12 | HP ---
Date/Time of Note Date/Time of Note DATE: 06/13/18 TIME: 08:01 Assessment/Plan VTE Prophylaxis SCD applied (from Nsg): Yes Pharmacological prophylaxis: heparin (500 bid) Lines/Catheters IV Catheter Type (from Nrsg): Peripheral IV Urinary Cath still in place: No Assessment/Plan Problems: (1) Diverticulosis Comment: quiet now... no evidence diverticulitis (2) HTN (hypertension) Comment: well controlled on her meds (3) Lupus Comment: quiet now (4) Urinary tract infection Status: Acute Comment: blood cxs and urine cxs pd...(+) pyuria... given abx.. will start levaquin now + hydration Qualifiers: Urinary tract infection type: site unspecified Hematuria presence: without hematuria Qualified Codes: N39.0 - Urinary tract infection, site not specified (5) Abdominal pain, left lower quadrant Status: Acute (6) Fever Comment: due to prob UTI... HD stable.. nl lactate Qualifiers: Fever type: unspecified Qualified Codes: R50.9 - Fever, unspecified (7) History of renal transplant Status: Acute Comment: on [place]/MMF/Pred.. resume all meds.. baseline Ct around 1.0 (8) Thrombocytopenia Comment: chronic.. will follow.. no evidence DIC Result Diagram: 06/12/18222906/12/182230 Results 24hrs Laboratory Tests Test 06/12/18 22:20 06/12/18 22:30 06/12/18 22:31 06/12/18 22:32 Urine Color YELLOW Urine Clarity SLIGHTLY CLOUDY A Urine pH 5.0 Urine Specific 1.015 [place] Urine Ketones NEGATIVE Urine Nitrite POSITIVE A Urine Bilirubin NEGATIVE Urine NEGATIVE Urobilinogen Urine Leukocyte 1+ H Esterase Urine Microscopic 3 RBC Urine Microscopic 32 H WBC Urine Bacteria MANY A Urine Hemoglobin 2+ H Urine Glucose NEGATIVE Urine Total 2+ H Protein White Blood Count 9.6 # Red Blood Count 3.68 L Hemoglobin 12.2 Hematocrit 37.1 Mean Corpuscular 100.8 Volume Mean Corpuscular 33.2 H Hemoglobin Mean Corpuscular 32.9 Hemoglobin Concen t Red Cell 12.4 Distribution Width Platelet Count 72 #L Mean Platelet 12.3 H Volume Immature 0.800 H Granulocytes % Neutrophils % Segmented 92 H Neutrophils % (Manual) Band Neutrophils 1 % (Manual) Lymphocytes % Lymphocytes % 1 L (Manual) Monocytes % Monocytes % 6 (Manual) Eosinophils % Basophils % Nucleated Red 0.0 Blood Cells % Immature 0.080 H Granulocytes # Neutrophils # Neutrophils # 8.8 H (Manual) Band Neutrophils 0.0 # Lymphocytes 0.0 L (Manual) Lymphocytes # Monocytes # Monocytes # 0.5 (Manual) Eosinophils # Basophils # Nucleated Red Blood Cells # Platelet Estimate DECREASED Giant Platelets 2 H Polychromasia 1+ Anisocytosis 1+ Macrocytosis 1+ Prothrombin Time 14.3 Prothrombin Time 1.1 Ratio INR International 1.10 Normalized Ratio Activated 34.7 Partial Thrombopl ast Time Sodium Level 130 L Potassium Level 5.2 H Chloride Level 101 Carbon Dioxide 21 Level Anion Gap 8 Blood Urea 43 H Nitrogen Creatinine 1.31 H Est Glomerular 42 L Filtrat Rate mL/min Glucose Level 150 Calcium Level 8.5 Troponin I 0.082 POC Venous 1.9 Lactate Test 06/13/18 00:50 06/13/18 04:54 POC Venous 1.5 Lactate Lactic Acid Level 1.5 HPI/ROS Admit Date/Time Admit Date/Time Jun 12, 2018 at 23:21 Hx of Present Illness Patient had a 3-4d hx/o fever, chills, dysuria and abdominal pain unassociated with any cp or sob. Came to the ER, where noted with pyuria and fever. Was HD stable. CT scan (-0 x for stranding at her transplant in the LLQ... PATIENCE with no hydro. She was cx'd, given IVF, abx, and admitted. This am already feeling a bit better. She has SLE and ESRD, and is s/p DDRTx at [facility] in Jun. renal fxn nl now at baseline. ROS Constitutional: no complaints, improved, chills, diaphoresis, disoriented, fatigue, febrile, nausea, poor po, weight change, other Eyes: no complaints ENT: no complaints Respiratory: no complaints Cardiovascular: no complaints Gastrointestinal: pain (LLQ over her Tx) Genitourinary: dysuria, flank pain (no flank pain tho) Musculoskeletal: no complaints Skin: no complaints Neurologic: no complaints Endocrine: no complaints Lymphatic: no complaints PMH/Family/Social Past Medical History Medical History: hypertension, renal disease (s/p DDRTx in 07/17), other (SLE, now quiet... diverticulosis) Medications Current Medications Sodium Chloride 1,000 ml @ 125 mls/hr Q8H IV Last administered on 06/13/18at 02:38; Admin Dose 50 MLS/HR; Start 06/12/18 at 23:30 Acetaminophen (Tylenol Tab) 650 mg Q4 PRN PO FEVER Last administered on 06/13/18at 05:42; Admin Dose 650 MG; Start 06/12/18 at 23:30 Prednisone (Prednisone) 10 mg DAILY PO ; Start 06/13/18 at 09:00 Acetaminophen/ Hydrocodone Bitart ([place] (10/325)) 1 tab BID PRN PO PAIN LEVEL 7-10; Start 06/12/18 at 23:30 Ondansetron HCl (Zofran Inj) 4 mg ER BRIDGE PRN IV NAUSEA AND/OR VOMITING; Start 06/12/18 at 23:30; Stop 06/13/18 at 23:29 Acetaminophen (Tylenol Tab) 650 mg ER BRIDGE PRN PO MILD PAIN(1-3)OR ELEVATED TEMP; Start 06/12/18 at 23:30; Stop 06/13/18 at 23:29 Duloxetine HCl (Cymbalta) 30 mg BID PO ; Start 06/13/18 at 09:00 Folic Acid (Folic Acid) 1 mg DAILY PO ; Start 06/13/18 at 09:00 Pregabalin (Lyrica) 100 mg DAILY PO ; Start 06/13/18 at 09:00 Ranitidine HCl (Zantac) 300 mg HS PO ; Start 06/13/18 at 21:00 Acetaminophen/ Hydrocodone Bitart ([place] (10/325)) 2 tab QID PRN PO PAIN; Start 06/13/18 at 08:00; Status UNV Prednisone (Prednisone) 10 mg DAILY PO ; Start 06/13/18 at 09:00; Status UNV Tacrolimus (Prograf) 4 mg Q12 PO ; Start 06/13/18 at 09:00; Status UNV Tramadol HCl (Ultram) 50 mg Q6 PRN PO PAIN; Start 06/13/18 at 08:00; Status UNV Miscellaneous Information 180 mg QAM PO ; Start 06/13/18 at 09:00; Status UNV Miscellaneous Information 500 mg Q12 PO ; Start 06/13/18 at 09:00; Status UNV Miscellaneous Information 20 mg BID PO ; Start 06/13/18 at 09:00; Status UNV Levofloxacin/ Dextrose 50 ml @ 50 mls/hr Q24H IVPB ; Start 06/13/18 at 08:00; Status UNV Sodium Chloride 1,000 ml @ 125 mls/hr Q8H IV ; Start 06/13/18 at 08:00; Status UNV Coded Allergies: No Known Allergy (Unverified , 07/08/16) Past Surgical History s/p DDRTx at [facility] in Jun Past Surgical Hx: other Family History Significant Family History: no pertinent family hx Social History Alcohol Use: none Smoking Status: Former smoker Drug Use: none Exam/Review of Systems Vital Signs Vitals Vital Signs Date Temp Pulse Resp B/P (MAP) Pulse Ox O2 O2 Flow FiO2 Time Delivery Rate 06/13/18 99.5 83 21 123/58 96 Room Air 07:32 (79) 06/13/18 2.0 05:40 Intake and Output 06/12/18 06/12/18 06/13/18 1515:00 23:00 07:00 IntakeIntake Total 250 ml BalanceBalance 250 ml Exam Constitutional: alert, oriented, well developed Psych: no complaints Head: normocephalic, atraumatic Eyes: nl conjunctiva, EOMI Respiratory: clear to auscultation Cardiovascular: regular rate and rhythm, nl pulses Gastrointestinal: soft, nl liver, spleen, other (min tender over allograft LLQ...soft tho) Musculoskeletal: nl extremities to inspection Extremities: normal pulses MARSHA LOPEZ MD Jun 13, 2018 08:12
[2018-06-13] MEDS ORDERED: predniSONE 10 MG TAB PO SCH (09:00)
[2018-06-13] MEDS: DILTIAZEM (CD) 180 MG CAP PO SCH (09:28)
[2018-06-13] MEDS: predniSONE 10 MG TAB PO SCH (09:28)
[2018-06-13] MEDS: PREGABALIN 100 MG CAP PO SCH (09:28)
[2018-06-13] MEDS: FOLIC ACID 1 MG TAB PO SCH (09:28)
[2018-06-13] MEDS: PANTOPRAZOLE (EC) 40 MG TAB PO SCH ×2 (09:28→17:31)
[2018-06-13] MEDS: DULOXETINE 30 MG CAP DR PO SCH ×2 (09:28→20:37)
[2018-06-13] MEDS: MYCOPHENOLATE 250 MG CAP PO SCH ×2 (09:35→20:43)
[2018-06-13] MEDS: TACROLIMUS 1 MG CAP PO SCH ×2 (09:35→20:37)
[2018-06-13] MEDS: HEPARIN 5,000 UNIT/1 ML VIAL SC SCH ×2 (09:45→20:39)
[2018-06-13] MEDS ORDERED: LEVOFLOXACIN 250MG/D5W (PMX) 50 ML IVPB SCH (10:00)
[2018-06-13] MEDS: RANITIDINE 150 MG TAB PO SCH (20:37)
[2018-06-13] MEDS: HYDROCODONE/APAP (10/325) TAB PO PRN (21:01)
[2018-06-14] VITALS (11 sets, daily range): BP systolic 136–167; BP diastolic 62–78; PULSE 66–83; RESP 16–20
[2018-06-14] MEDS: SOD CHLORIDE 0.9% 1,000 ML IV SCH ×2 (02:53→18:27)
[2018-06-14] MEDS: HYDROCODONE/APAP (10/325) TAB PO PRN ×2 (05:06→20:58)
[2018-06-14] MEDS: PANTOPRAZOLE (EC) 40 MG TAB PO SCH ×2 (05:06→18:25)
[2018-06-14] MEDS ORDERED: LEVOFLOXACIN 250 MG TAB PO SCH (06:00)
--- NOTE | 2018-06-14 08:09 | PN ---
Date/Time of Note Date/Time of Note DATE: 06/14/18 TIME: 08:06 Assessment/Plan VTE Prophylaxis Risk score (from [facility])>0 risk: 2 SCD applied (from [facility]): Yes Pharmacological prophylaxis: heparin Lines/Catheters IV Catheter Type (from [facility]): Peripheral IV Urinary Cath still in place: No Assessment/Plan Assessment/Plan 1. UTI and related bacteremia, Sens are pending, will change abx to IV and have pharm adjust 2. Imaging studies reviewed->no hydro or stone, will check post void bladder residual 3. Kidney transplant with well preserved rx. 4. ARF resolved sec to ? endotoxin and "dry". 5. PT and case management requested Result Diagram: 06/14/18 0543 06/14/18 0543 Results 24hrs Laboratory Tests Test 06/14/18 05:43 White Blood Count 6.9 # Red Blood Count 3.21 L Hemoglobin 10.4 L Hematocrit 32.3 L Mean Corpuscular Volume 100.6 Mean Corpuscular Hemoglobin 32.4 Mean Corpuscular Hemoglobin Concent 32.2 Red Cell Distribution Width 12.4 Platelet Count 55 #L Mean Platelet Volume 12.2 H Immature Granulocytes % 0.600 H Neutrophils % 81.4 H Lymphocytes % 6.9 L Monocytes % 10.7 Eosinophils % 0.3 Basophils % 0.1 Nucleated Red Blood Cells % 0.0 Immature Granulocytes # 0.040 H Neutrophils # 5.7 Lymphocytes # 0.5 L Monocytes # 0.7 Eosinophils # 0.0 Basophils # 0.0 Nucleated Red Blood Cells # 0.0 Prothrombin Time 14.2 Prothrombin Time Ratio 1.1 INR International Normalized Ratio 1.09 Activated Partial Thromboplast Time 32.7 Sodium Level 140 Potassium Level 4.1 Chloride Level 112 H Carbon Dioxide Level 17 L Anion Gap 11 Blood Urea Nitrogen 16 # Creatinine 0.72 Est Glomerular Filtrat Rate mL/min > 60 Glucose Level 163 Calcium Level 7.7 L Total Bilirubin 0.3 Direct Bilirubin 0.00 Indirect Bilirubin 0.3 Aspartate Amino Transf (AST/SGOT) 23 Alanine Aminotransferase (ALT/SGPT) 15 Alkaline Phosphatase 59 Total Protein 5.8 L Albumin 2.8 L Globulin 3.00 Albumin/Globulin Ratio 0.93 Subjective 24 Hr Interval Summary Respiratory: No cough, No shortness of breath Cardiovascular: no complaints Gastrointestinal: no complaints Genitourinary: No dysuria, No hematuria Musculoskeletal: No back pain Exam/Review of Systems Vital Signs Vitals Vital Signs Date Temp Pulse Resp B/P (MAP) Pulse Ox O2 O2 Flow FiO2 Time Delivery Rate 06/14/18 98.5 77 16 154/74 100 Room Air 07:03 (100) 06/13/18 2.0 08:10 Intake and Output 06/13/18 06/13/18 06/14/18 1515:00 23:00 07:00 IntakeIntake Total 250 ml 1680 ml 1500 ml BalanceBalance 250 ml 1680 ml 1500 ml Exam Neck: No jvd Respiratory: clear to auscultation Cardiovascular: regular rate and rhythm Gastrointestinal: soft; No distended, No tender Extremities: No edema, No tenderness Medications Medications Current Medications Sodium Chloride 1,000 ml @ 50 mls/hr Q20H IV Last administered on 06/14/18 02:53; Admin Dose 125 MLS/HR; Start 06/12/18 at 23:30 Acetaminophen (Tylenol Tab) 650 mg Q4 PRN PO FEVER Last administered on 06/13/18 05:42; Admin Dose 650 MG; Start 06/12/18 at 23:30 Prednisone (Prednisone) 10 mg DAILY PO Last administered on 06/13/18 09:28; Admin Dose 10 MG; Start 06/13/18 at 09:00 Acetaminophen/ Hydrocodone Bitart ([place] (10/325)) 1 tab BID PRN PO PAIN LEVEL 4-6 Last administered on 06/13/18 09:36; Admin Dose 1 TAB; Start 06/12/18 at 23:30 Duloxetine HCl (Cymbalta) 30 mg BID PO Last administered on 06/13/18 20:37; Admin Dose 30 MG; Start 06/13/18 at 09:00 Folic Acid (Folic Acid) 1 mg DAILY PO Last administered on 06/13/18 09:28; Admin Dose 1 MG; Start 06/13/18 at 09:00 Pregabalin (Lyrica) 100 mg DAILY PO Last administered on 06/13/18 09:28; Admin Dose 100 MG; Start 06/13/18 at 09:00 Ranitidine HCl (Zantac) 300 mg HS PO Last administered on 06/13/18 20:37; Admin Dose 300 MG; Start 06/13/18 at 21:00 Acetaminophen/ Hydrocodone Bitart ([place] (10/325)) 2 tab QID PRN PO PAIN LEVEL 7-10 Last administered on 06/14/18 05:06; Admin Dose 2 TAB; Start 06/13/18 at 08:00 Tacrolimus (Prograf) 4 mg Q12 PO Last administered on 06/13/18at 20:37; Admin Dose 4 MG; Start 06/13/18 at 09:00 Tramadol HCl (Ultram) 50 mg Q6H PRN PO PAIN LEVEL 1-3; Start 06/13/18 at 08:00 Diltiazem HCl (Cardizem Cd) 180 mg DAILY PO Last administered on 06/13/18 09:28; Admin Dose 180 MG; Start 06/13/18 at 09:00 Mycophenolate Mofetil (Cellcept) 500 mg Q12 PO Last administered on 06/13/18at 20:43; Admin Dose 500 MG; Start 06/13/18 at 09:00 Pantoprazole (Protonix Tab) 40 mg BID@0600,1800 PO Last administered on 06/14/18 05:06; Admin Dose 40 MG; Start 06/13/18 at 09:00 Heparin Sodium (Porcine) (Heparin (5000 Units/1ml)) 5,000 unit BID SC Last administered on 06/13/18 20:39; Admin Dose 5,000 UNIT; Start 06/13/18 at 09:00 Levofloxacin/ Dextrose 100 ml @ 100 mls/hr Q24H IVPB ; Start 06/14/18 at 08:00; Status MECHELLE SAMANO MD Jun 14, 2018 08:09
[2018-06-14] MEDS: DULOXETINE 30 MG CAP DR PO SCH ×2 (09:06→20:52)
[2018-06-14] MEDS: MYCOPHENOLATE 250 MG CAP PO SCH ×2 (09:06→20:52)
[2018-06-14] MEDS: FOLIC ACID 1 MG TAB PO SCH (09:06)
[2018-06-14] MEDS: predniSONE 10 MG TAB PO SCH (09:07)
[2018-06-14] MEDS: TACROLIMUS 1 MG CAP PO SCH ×2 (09:07→20:51)
[2018-06-14] MEDS: PREGABALIN 100 MG CAP PO SCH (09:07)
[2018-06-14] MEDS: DILTIAZEM (CD) 180 MG CAP PO SCH (09:08)
[2018-06-14] MEDS: HEPARIN 5,000 UNIT/1 ML VIAL SC SCH ×2 (09:45→21:18)
[2018-06-14] MEDS ORDERED: DIPHENHYDRAMINE 25 MG CAP PO PRN (11:00)
[2018-06-14] MEDS: LEVOFLOXACIN 500MG/D5W (PMX) 100 ML IVPB SCH (11:19)
[2018-06-14] MEDS: RANITIDINE 150 MG TAB PO SCH (20:52)
[2018-06-15] VITALS (12 sets, daily range): BP systolic 134–163; BP diastolic 63–78; PULSE 68–90; RESP 19–22
[2018-06-15] MEDS: PANTOPRAZOLE (EC) 40 MG TAB PO SCH ×2 (05:03→17:41)
[2018-06-15] MEDS: HYDROCODONE/APAP (10/325) TAB PO PRN (07:12)
[2018-06-15] MEDS: FOLIC ACID 1 MG TAB PO SCH (08:17)
[2018-06-15] MEDS: MYCOPHENOLATE 250 MG CAP PO SCH ×2 (08:17→20:47)
[2018-06-15] MEDS: DULOXETINE 30 MG CAP DR PO SCH ×2 (08:18→20:47)
[2018-06-15] MEDS: TACROLIMUS 1 MG CAP PO SCH ×2 (08:18→20:46)
[2018-06-15] MEDS: predniSONE 10 MG TAB PO SCH (08:19)
[2018-06-15] MEDS: DILTIAZEM (CD) 180 MG CAP PO SCH (08:19)
--- NOTE | 2018-06-15 08:34 | CONS ---
Date/Time of Note Date/Time of Note DATE: 06/15/18 TIME: 08:28 Assessment/Plan Assessment/Plan Problems: (1) Electrolyte and fluid disorder Comment: replace Mg and Phos (2) Sepsis Status: Acute Comment: (+) blood cxs for E Coli... no more T... will re culture today to be sure have cleared infection Qualifiers: Sepsis type: sepsis due to unspecified organism Qualified Codes: A41.9 - Sepsis, unspecified organism (3) HTN (hypertension) Comment: a bit high...watch (4) Lupus Comment: more aches w infection... increase the Lyrica.. Dilaudid prn (5) Thrombocytopenia Comment: now rising as infection getting under control (6) History of renal transplant Status: Acute Comment: Cr remains nl.. is on her transplant meds Result Diagram: 06/15/18 0621 06/15/18 0621 Results 24hrs Laboratory Tests Test 06/14/18 14:51 06/15/18 06:21 White Blood Count 6.0 6.8 Red Blood Count 3.48 L 3.33 L Hemoglobin 11.3 L 10.9 L Hematocrit 35.7 L 33.7 L Mean Corpuscular Volume 102.6 H 101.2 H Mean Corpuscular Hemoglobin 32.5 32.7 Mean Corpuscular Hemoglobin Concent 31.7 L 32.3 Red Cell Distribution Width 13.0 12.9 Platelet Count 54 L 71 #L Mean Platelet Volume 11.7 H 12.3 H Immature Granulocytes % 0.500 H 0.600 H Neutrophils % 88.4 H 79.8 H Lymphocytes % 3.5 L 8.3 L Monocytes % 7.2 10.8 Eosinophils % 0.2 0.4 Basophils % 0.2 0.1 Nucleated Red Blood Cells % 0.0 0.0 Immature Granulocytes # 0.030 0.040 H Neutrophils # 5.3 5.5 Lymphocytes # 0.2 L 0.6 L Monocytes # 0.4 0.7 Eosinophils # 0.0 0.0 Basophils # 0.0 0.0 Nucleated Red Blood Cells # 0.0 0.0 Sodium Level 138 Potassium Level 4.8 Chloride Level 111 H Carbon Dioxide Level 21 Anion Gap 6 Blood Urea Nitrogen 14 Creatinine 0.63 Est Glomerular Filtrat Rate mL/min > 60 Glucose Level 107 # Calcium Level 7.9 L Phosphorus Level 1.4 L Magnesium Level 1.6 L Consultation Date/Type/Reason Admit Date/Time Jun 12, 2018 at 23:21 Initial Consult Date Type of Consult neph 24 HR Interval Summary Free Text/Dictation better, but c/o diffuse pain.. asking for stronger analgesics prn Exam/Review of Systems Vital Signs Vitals Vital Signs Date Temp Pulse Resp B/P (MAP) Pulse Ox O2 O2 Flow FiO2 Time Delivery Rate 06/15/18 90 08:09 06/15/18 98.0 20 140/70 98 Nasal 07:35 (93) Cannula 06/14/18 2.0 21:00 Intake and Output 06/14/18 06/14/18 06/15/18 1515:00 23:00 07:00 IntakeIntake Total 375 ml 800 ml 400 ml BalanceBalance 375 ml 800 ml 400 ml Exam Constitutional: alert, oriented Head: normocephalic, atraumatic Eyes: nl conjunctiva Neck: supple Respiratory: clear to auscultation Cardiovascular: regular rate and rhythm, systolic murmur (2/6 ALDO as before) Gastrointestinal: soft, nl liver, spleen Extremities: normal pulses, edema (none) Medications Medications Current Medications Sodium Chloride 1,000 ml @ 50 mls/hr Q20H IV Last administered on 06/14/18 18:27; Admin Dose 50 MLS/HR; Start 06/12/18 at 23:30 Acetaminophen (Tylenol Tab) 650 mg Q4 PRN PO FEVER Last administered on 06/13/18 05:42; Admin Dose 650 MG; Start 06/12/18 at 23:30 Prednisone (Prednisone) 10 mg DAILY PO Last administered on 06/14/18 09:07; Admin Dose 10 MG; Start 06/13/18 at 09:00 Acetaminophen/ Hydrocodone Bitart ([place] (10/325)) 1 tab BID PRN PO PAIN LEVEL 4-6 Last administered on 06/13/18 09:36; Admin Dose 1 TAB; Start 06/12/18 at 23:30 Duloxetine HCl (Cymbalta) 30 mg BID PO Last administered on 06/14/18 20:52; Admin Dose 30 MG; Start 06/13/18 at 09:00 Folic Acid (Folic Acid) 1 mg DAILY PO Last administered on 06/14/18 09:06; Admin Dose 1 MG; Start 06/13/18 at 09:00 Pregabalin (Lyrica) 100 mg DAILY PO Last administered on 06/14/18 09:07; Admin Dose 100 MG; Start 06/13/18 at 09:00 Ranitidine HCl (Zantac) 300 mg HS PO Last administered on 06/14/18 20:52; Admin Dose 300 MG; Start 06/13/18 at 21:00 Acetaminophen/ Hydrocodone Bitart ([place] (10/325)) 2 tab QID PRN PO PAIN LEVEL 7-10 Last administered on 06/15/18 07:12; Admin Dose 2 TAB; Start 06/13/18 at 08:00 Tacrolimus (Prograf) 4 mg Q12 PO Last administered on 06/14/18 20:51; Admin Dose 4 MG; Start 06/13/18 at 09:00 Tramadol HCl (Ultram) 50 mg Q6H PRN PO PAIN LEVEL 1-3; Start 06/13/18 at 08:00 Diltiazem HCl (Cardizem Cd) 180 mg DAILY PO Last administered on 06/14/18 09:08; Admin Dose 180 MG; Start 06/13/18 at 09:00 Mycophenolate Mofetil (Cellcept) 500 mg Q12 PO Last administered on 06/14/18 20:52; Admin Dose 500 MG; Start 06/13/18 at 09:00 Pantoprazole (Protonix Tab) 40 mg BID@0600,1800 PO Last administered on 06/15/18 05:03; Admin Dose 40 MG; Start 06/13/18 at 09:00 Heparin Sodium (Porcine) (Heparin (5000 Units/1ml)) 5,000 unit BID SC Last administered on 06/14/18 21:18; Admin Dose 5,000 UNIT; Start 06/13/18 at 09:00 Levofloxacin/ Dextrose 100 ml @ 100 mls/hr Q24H IVPB Last administered on 06/14/18 11:19; Admin Dose 100 MLS/HR; Start 06/14/18 at 10:00 Diphenhydramine HCl (Benadryl) 25 mg TID PRN PO ITCHING Last administered on 06/14/18 11:19; Admin Dose 25 MG; Start 1/16/19 at 11:00 Hydralazine HCl (Apresoline) 25 mg Q6H PRN PO ELEVATED SYSTOLIC BP Last administered on 06/15/18at 05:03; Admin Dose 25 MG; Start 06/15/18 at 05:00 MARSHA LOPEZ MD Jun 15, 2018 08:34
[2018-06-15] MEDS: HEPARIN 5,000 UNIT/1 ML VIAL SC SCH ×2 (08:46→20:51)
[2018-06-15] MEDS: PREGABALIN 100 MG CAP PO SCH ×2 (08:47→20:47)
[2018-06-15] MEDS: MAGNESIUM SULFATE 2 GM/50 ML 50 ML IVPB SCH ×2 (09:29→20:55)
[2018-06-15] MEDS: LEVOFLOXACIN 500MG/D5W (PMX) 100 ML IVPB SCH (10:51)
[2018-06-15] MEDS ORDERED: SOD CHLORIDE 0.9% IV ONE (11:00)
[2018-06-15] MEDS ORDERED: SODIUM PHOSPHATE 30 MMOL in SOD CHLORIDE 0.9% 250 ML IVPB ONE (11:00)
[2018-06-15] MEDS ORDERED: SODIUM PHOSPHATE IV ONE (11:00)
[2018-06-15] MEDS: SOD CHLORIDE 0.9% 1,000 ML IV SCH (15:09)
[2018-06-15] MEDS: RANITIDINE 150 MG TAB PO SCH (20:47)
[2018-06-15] MEDS: HYDROmorphONE 1 MG/ML SYG IV PRN (21:44)
[2018-06-16] VITALS (12 sets, daily range): BP systolic 113–164; BP diastolic 60–78; PULSE 69–91; RESP 17–21
[2018-06-16] MEDS: HYDROmorphONE 1 MG/ML SYG IV PRN (03:59)
[2018-06-16] MEDS: PANTOPRAZOLE (EC) 40 MG TAB PO SCH ×2 (06:30→17:47)
[2018-06-16] MEDS: DULOXETINE 30 MG CAP DR PO SCH ×2 (08:38→20:31)
[2018-06-16] MEDS: predniSONE 10 MG TAB PO SCH (08:38)
[2018-06-16] MEDS: TACROLIMUS 1 MG CAP PO SCH ×2 (08:38→20:32)
[2018-06-16] MEDS: FOLIC ACID 1 MG TAB PO SCH (08:38)
[2018-06-16] MEDS: MYCOPHENOLATE 250 MG CAP PO SCH ×2 (08:38→20:31)
[2018-06-16] MEDS: DILTIAZEM (CD) 180 MG CAP PO SCH (08:39)
[2018-06-16] MEDS: HEPARIN 5,000 UNIT/1 ML VIAL SC SCH ×2 (08:43→20:48)
[2018-06-16] MEDS: PREGABALIN 100 MG CAP PO SCH ×2 (08:43→20:36)
--- NOTE | 2018-06-16 08:56 | PN ---
Date/Time of Note Date/Time of Note DATE: 06/16/18 TIME: 08:51 Assessment/Plan VTE Prophylaxis Risk score (from Ns)>0 risk: 4 SCD applied (from Ns): Yes Pharmacological prophylaxis: heparin Lines/Catheters IV Catheter Type (from Nrs): [place] Urinary Cath still in place: No Assessment/Plan Hospital Course 1. Low grade temp, will repeat u/a and cult and ask ID to make comments given bacteremia in immunosuppressed pt. 2. Abd pain, cause, will check post void bladder residual, CT scan-No diverticulitis 3. Kidney transplant, stable renal fx 4. Heat m, will rev admit h and p and consider obtaining Echo 5. Thrombocytopenia is improving, related to sepsis Result Diagram: 06/16/1855306/16/18 0554 Results 24hrs Laboratory Tests Test 06/16/18 05:54 White Blood Count 7.2 Red Blood Count 3.50 L Hemoglobin 11.3 L Hematocrit 35.6 L Mean Corpuscular Volume 101.7 H Mean Corpuscular Hemoglobin 32.3 Mean Corpuscular Hemoglobin Concent 31.7 L Red Cell Distribution Width 13.1 Platelet Count 101 #L Mean Platelet Volume 11.9 H Immature Granulocytes % 1.000 H Neutrophils % 77.5 H Lymphocytes % 9.7 L Monocytes % 11.4 H Eosinophils % 0.3 Basophils % 0.1 Nucleated Red Blood Cells % 0.0 Immature Granulocytes # 0.070 H Neutrophils # 5.6 Lymphocytes # 0.7 L Monocytes # 0.8 Eosinophils # 0.0 Basophils # 0.0 Nucleated Red Blood Cells # 0.0 Sodium Level 141 Potassium Level 4.9 Chloride Level 111 H Carbon Dioxide Level 23 Anion Gap 7 Blood Urea Nitrogen 14 Creatinine 0.65 Est Glomerular Filtrat Rate mL/min > 60 Glucose Level 99 Calcium Level 8.5 Phosphorus Level 2.9 Magnesium Level 2.6 #H Total Bilirubin 0.4 Direct Bilirubin 0.00 Indirect Bilirubin 0.4 Aspartate Amino Transf (AST/SGOT) 20 Alanine Aminotransferase (ALT/SGPT) 19 Alkaline Phosphatase 62 Total Protein 6.2 Albumin 3.1 L Globulin 3.10 Albumin/Globulin Ratio 1.00 Subjective 24 Hr Interval Summary Respiratory: cough; No shortness of breath Cardiovascular: No chest pain, No orthopenea Gastrointestinal: other (c/o lower abd discomfort, llq, this she says has been present since kindey transplant (??inc) --with interpretor, it may be relieved after voiding) Genitourinary: No dysuria, No hematuria Exam/Review of Systems Vital Signs Vitals Vital Signs Date Temp Pulse Resp B/P (MAP) Pulse Ox O2 O2 Flow FiO2 Time Delivery Rate 06/16/18 86 08:12 06/16/18 99.8 20 164/78 99 07:12 (106) 06/15/18 Nasal 2.0 20:30 Cannula Intake and Output 06/15/18 06/15/18 06/16/18 1515:00 23:00 07:00 IntakeIntake Total 150 ml 600 ml 900 ml BalanceBalance 150 ml 600 ml 900 ml Exam Neck: No jvd Respiratory: clear to auscultation Cardiovascular: regular rate and rhythm, murmurs/extra sounds (1-2/6 syst m) Gastrointestinal: soft, tender (1+ LLQ with mass); No distended Extremities: No edema Medications Medications Current Medications Sodium Chloride 1,000 ml @ 50 mls/hr Q20H IV Last administered on 06/14/18 18:27; Admin Dose 50 MLS/HR; Start 06/12/18 at 23:30 Acetaminophen (Tylenol Tab) 650 mg Q4 PRN PO FEVER Last administered on 06/13/18 05:42; Admin Dose 650 MG; Start 06/12/18 at 23:30 Prednisone (Prednisone) 10 mg DAILY PO Last administered on 06/16/18 08:38; Admin Dose 10 MG; Start 06/13/18 at 09:00 Acetaminophen/ Hydrocodone Bitart ([place] (10/325)) 1 tab BID PRN PO PAIN LEVEL 4-6 Last administered on 06/13/18 09:36; Admin Dose 1 TAB; Start 06/12/18 at 23:30 Duloxetine HCl (Cymbalta) 30 mg BID PO Last administered on 06/16/18 08:38; Admin Dose 30 MG; Start 06/13/18 at 09:00 Folic Acid (Folic Acid) 1 mg DAILY PO Last administered on 06/16/18 08:38; Admin Dose 1 MG; Start 06/13/18 at 09:00 Ranitidine HCl (Zantac) 300 mg HS PO Last administered on 06/15/18 20:47; Adm in Dose 300 MG; Start 06/13/18 at 21:00 Acetaminophen/ Hydrocodone Bitart ([place] (10/325)) 2 tab QID PRN PO PAIN LEVEL 7-10 Last administered on 06/15/18 07:12; Admin Dose 2 TAB; Start 06/13/18 at 0 8:00 Tacrolimus (Prograf) 4 mg Q12 PO Last administered on 06/16/18 08:38; Admin Dose 4 MG; Start 06/13/18 at 09:00 Tramadol HCl (Ultram) 50 mg Q6H PRN PO PAIN LEVEL 1-3; Start 06/13/18 at 08:00 Diltiazem HCl (Cardizem Cd) 180 mg DAILY PO Last administered on 06/16/18 08:39; Admin Dose 180 MG; Start 06/13/18 at 09:00 Mycophenolate Mofetil (Cellcept) 500 mg Q12 PO Last administered on 06/16/18 08:38; Admin Dose 500 MG; Start 06/13/18 at 09:00 Pantoprazole (Protonix Tab) 40 mg BID@0600,1800 PO Last administered on 06/16/18 06:30; Admin Dose 40 MG; Start 06/13/18 at 09:00 Heparin Sodium (Porcine) (Heparin (5000 Units/1ml)) 5,000 unit BID SC Last administered on 06/16/18 08:43; Admin Dose 5,000 UNIT; Start 06/13/18 at 09:00 Levofloxacin/ Dextrose 100 ml @ 100 mls/hr Q24H IVPB Last administered on 06/15/18 10:51; Admin Dose 100 MLS/HR; Start 06/14/18 at 10:00 Diphenhydramine HCl (Benadryl) 25 mg TID PRN PO ITCHING Last administered on 06/14/18 11:19; Admin Dose 25 MG; Start 06/14/18 at 11:00 Hydralazine HCl (Apresoline) 25 mg Q6H PRN PO ELEVATED SYSTOLIC BP Last administered on 06/15/18 05:03; Admin Dose 25 MG; Start 06/15/18 at 05:00 Pregabalin (Lyrica) 100 mg BID PO Last administered on 06/16/18 08:43; Admin Dose 100 MG; Start 06/15/18 at 09:00 Hydromorphone HCl (Dilaudid) 1 mg Q3H PRN IV SEVERE PAIN LEVEL 7-10 Last administered on 06/16/18at 03:59; Admin Dose 1 MG; Start 06/15/18 at 08:30 MECHELLE JOSÉ MD Jun 16, 2018 08:55
[2018-06-16] MEDS: HYDROCODONE/APAP (10/325) TAB PO PRN (09:31)
[2018-06-16] MEDS: LEVOFLOXACIN 500MG/D5W (PMX) 100 ML IVPB SCH (10:31)
--- NOTE | 2018-06-16 12:21 | CONS ---
Date/Time of Note Date/Time of Note DATE: 06/16/18 TIME: 12:10 Assessment/Plan Assessment/Plan Assessment/Plan 1) UTI with bacteremia pt has improved, fevers with kidney involvement (with bacteremia this is usually the case) the fevers may take 5 days to resolve continue with levaquin, will change to po and continue it thru 06/25 2) hx of c.dif unfortunately non 1st gen cephalosporins and quinolones have a higher risk for c.dif will start a probiotic for her but her e.coli is not sensitive to augmentin or keflex 3) renal Tx good renal function 4) SLE 5) thrombocytopenia this is not new to patient but it is improving with treatment Result Diagram: 06/16/18 0554 06/16/18 0554 Results 24hrs Laboratory Tests Test 06/16/18 05:54 06/16/18 09:50 White Blood Count 7.2 Red Blood Count 3.50 L Hemoglobin 11.3 L Hematocrit 35.6 L Mean Corpuscular Volume 101.7 H Mean Corpuscular Hemoglobin 32.3 Mean Corpuscular Hemoglobin Concent 31.7 L Red Cell Distribution Width 13.1 Platelet Count 101 #L Mean Platelet Volume 11.9 H Immature Granulocytes % 1.000 H Neutrophils % 77.5 H Lymphocytes % 9.7 L Monocytes % 11.4 H Eosinophils % 0.3 Basophils % 0.1 Nucleated Red Blood Cells % 0.0 Immature Granulocytes # 0.070 H Neutrophils # 5.6 Lymphocytes # 0.7 L Monocytes # 0.8 Eosinophils # 0.0 Basophils # 0.0 Nucleated Red Blood Cells # 0.0 Sodium Level 141 Potassium Level 4.9 Chloride Level 111 H Carbon Dioxide Level 23 Anion Gap 7 Blood Urea Nitrogen 14 Creatinine 0.65 Est Glomerular Filtrat Rate mL/min > 60 Glucose Level 99 Calcium Level 8.5 Phosphorus Level 2.9 Magnesium Level 2.6 #H Total Bilirubin 0.4 Direct Bilirubin 0.00 Indirect Bilirubin 0.4 Aspartate Amino Transf (AST/SGOT) 20 Alanine Aminotransferase (ALT/SGPT) 19 Alkaline Phosphatase 62 Total Protein 6.2 Albumin 3.1 L Globulin 3.10 Albumin/Globulin Ratio 1.00 Urine Color YELLOW Urine Clarity CLEAR Urine pH 6.0 Urine Specific [place] 1.011 Urine Ketones NEGATIVE Urine Nitrite NEGATIVE Urine Bilirubin NEGATIVE Urine Urobilinogen NEGATIVE Urine Leukocyte Esterase TRACE A Urine Microscopic RBC 6 H Urine Microscopic WBC 14 H Urine Hemoglobin 1+ H Urine Glucose NEGATIVE Urine Total Protein NEGATIVE Consultation Date/Type/Reason Admit Date/Time Jun 12, 2018 at 23:21 Date of Consultation: Jun 16, 2018 Type of Consult ID Hx of Present Illness pt was admitted on 06/12 due to chills, fevers, sweats for 1-2 days She was having dysuria for about 4-5 days [employer] no N, V, D no abd pain no SOB, cough, sore throat She had generalized body pains upon admission but this has resolved Past Medical History ESRD, HTN, SLE, hyperlipidemia, mild thrombocytopenia, Medical History: hypertension, renal disease (s/p DDRTx in 07/17), other (SLE, now quiet... diverticulosis) Medications Current Medications Sodium Chloride 1,000 ml @ 20 mls/hr Q24H IV Last administered on 06/14/18 18:27; Admin Dose 50 MLS/HR; Start 06/12/18 at 23:30 Acetaminophen (Tylenol Tab) 650 mg Q4 PRN PO FEVER Last administered on 06/13/18 05:42; Admin Dose 650 MG; Start 06/12/18 at 23:30 Prednisone (Prednisone) 10 mg DAILY PO Last administered on 06/16/18 08:38; A dmin Dose 10 MG; Start 06/13/18 at 09:00 Acetaminophen/ Hydrocodone Bitart ([place] (10/325)) 1 tab BID PRN PO PAIN LEVEL 4-6 Last administered on 06/13/18 09:36; Admin Dose 1 TAB; Start 06/12/18 at 2 3:30 Duloxetine HCl (Cymbalta) 30 mg BID PO Last administered on 06/16/18 08:38; Admin Dose 30 MG; Start 06/13/18 at 09:00 Folic Acid (Folic Acid) 1 mg DAILY PO Last administered on 06/16/18 08:38; Admin Dose 1 MG; Start 06/13/18 at 09:00 Ranitidine HCl (Zantac) 300 mg HS PO Last administered on 06/15/18 20:47; Admin Dose 300 MG; Start 06/13/18 at 21:00 Acetaminophen/ Hydrocodone Bitart ([place] (10/325)) 2 tab QID PRN PO PAIN LEVEL 7-10 Last administered on 06/16/18 09:31; Admin Dose 2 TAB; Start 06/13/18 at 08:00 Tacrolimus (Prograf) 4 mg Q12 PO Last administered on 06/16/18 08:38; Admin Dose 4 MG; Start 06/13/18 at 09:00 Tramadol HCl (Ultram) 50 mg Q6H PRN PO PAIN LEVEL 1-3; Start 06/13/18 at 08:00 Diltiazem HCl (Cardizem Cd) 180 mg DAILY PO Last administered on 06/16/18 08:3 9; Admin Dose 180 MG; Start 06/13/18 at 09:00 Mycophenolate Mofetil (Cellcept) 500 mg Q12 PO Last administered on 06/16/18 08:38; Admin Dose 500 MG; Start 06/13/18 at 09:00 Pantoprazole (Protonix Tab) 40 mg BID@0600,1800 PO Last administered on 06/16/18 06:30; Admin Dose 40 MG; Start 06/13/18 at 09:00 Heparin Sodium (Porcine) (Heparin (5000 Units/1ml)) 5,000 unit BID SC Last administered on 06/16/18 08:43; Admin Dose 5,000 UNIT; Start 06/13/18 at 09:00 Levofloxacin/ Dextrose 100 ml @ 100 mls/hr Q24H IVPB Last administered on 06/16/18 10:31; Admin Dose 100 MLS/HR; Start 06/14/18 at 10:00 Diphenhydramine HCl (Benadryl) 25 mg TID PRN PO ITCHING Last administered on 06/14/18 11:19; Admin Dose 25 MG; Start 06/14/18 at 11:00 Hydralazine HCl (Apresoline) 25 mg Q6H PRN PO ELEVATED SYSTOLIC BP Last administered on 06/15/18 05:03; Admin Dose 25 MG; Start 06/15/18 at 05:00 Pregabalin (Lyrica) 100 mg BID PO Last administered on 06/16/18 08:43; Admin Dose 100 MG; Start 06/15/18 at 09:00 Hydromorphone HCl (Dilaudid) 1 mg Q3H PRN IV SEVERE PAIN LEVEL 7-10 Last administered on 06/16/18 03:59; Admin Dose 1 MG; Start 06/15/18 at 08:30 Allergies: Coded Allergies: No Known Allergy (Unverified , 07/08/16) Past Surgical History renal tx in 06/2017 R shoulder surgery Past Surgical Hx: other Social History Alcohol Use: none Smoking Status: Former smoker Drug Use: none Exam/Review of Systems Vital Signs Vitals Vital Signs Date Temp Pulse Resp B/P (MAP) Pulse Ox O2 O2 Flow FiO2 Time Delivery Rate 06/16/18 98.0 83 20 113/60 97 Nasal 11:28 (77) Cannula 06/15/18 2.0 20:30 Intake and Output 06/15/18 06/15/18 06/16/18 1515:00 23:00 07:00 IntakeIntake Total 150 ml 600 ml 900 ml BalanceBalance 150 ml 600 ml 900 ml Exam Constitutional: alert, oriented Eyes: nl sclera ENMT: mucosa pink and moist Respiratory: clear to auscultation Cardiovascular: regular rate and rhythm Gastrointestinal: soft, non-tender Extremities: other (no edema) Neurological: other (non focal) Medications Medications Current Medications Sodium Chloride 1,000 ml @ 20 mls/hr Q24H IV Last administered on 06/14/18at 18:27; Admin Dose 50 MLS/HR; Start 06/12/18 at 23:30 Acetaminophen (Tylenol Tab) 650 mg Q4 PRN PO FEVER Last administered on 06/13/18at 05:42; Admin Dose 650 MG; Start 06/12/18 at 23:30 Prednisone (Prednisone) 10 mg DAILY PO Last administered on 06/16/18at 08:38; Admin Dose 10 MG; Start 06/13/18 at 09:00 Acetaminophen/ Hydrocodone Bitart ([place] (10/325)) 1 tab BID PRN PO PAIN LEVEL 4-6 Last administered on 06/13/18at 09:36; Admin Dose 1 TAB; Start 06/12/18 at 23:30 Duloxetine HCl (Cymbalta) 30 mg BID PO Last administered on 06/16/18at 08:38; Admin Dose 30 MG; Start 06/13/18 at 09:00 Folic Acid (Folic Acid) 1 mg DAILY PO Last administered on 06/16/18at 08:38; Admin Dose 1 MG; Start 06/13/18 at 09:00 Ranitidine HCl (Zantac) 300 mg HS PO Last administered on 06/15/18 20:47; Admin Dose 300 MG; Start 06/13/18 at 21:00 Acetaminophen/ Hydrocodone Bitart ([place] (10/325)) 2 tab QID PRN PO PAIN LEVEL 7-10 Last administered on 06/16/18 09:31; Admin Dose 2 TAB; Start 06/13/18 at 08:00 Tacrolimus (Prograf) 4 mg Q12 PO Last administered on 06/16/18 08:38; Admin Dose 4 MG; Start 06/13/18 at 09:00 Tramadol HCl (Ultram) 50 mg Q6H PRN PO PAIN LEVEL 1-3; Start 06/13/18 at 08:00 Diltiazem HCl (Cardizem Cd) 180 mg DAILY PO Last administered on 06/16/18 08:39; Admin Dose 180 MG; Start 06/13/18 at 09:00 Mycophenolate Mofetil (Cellcept) 500 mg Q12 PO Last administered on 06/16/18 08:38; Admin Dose 500 MG; Start 06/13/18 at 09:00 Pantoprazole (Protonix Tab) 40 mg BID@0600,1800 PO Last administered on 06/16/18 06:30; Admin Dose 40 MG; Start 06/13/18 at 09:00 Heparin Sodium (Porcine) (Heparin (5000 Units/1ml)) 5,000 unit BID SC Last administered on 06/16/18 08:43; Admin Dose 5,000 UNIT; Start 06/13/18 at 09:00 Levofloxacin/ Dextrose 100 ml @ 100 mls/hr Q24H IVPB Last administered on 06/16/18 10:31; Admin Dose 100 MLS/HR; Start 06/14/18 at 10:00 Diphenhydramine HCl (Benadryl) 25 mg TID PRN PO ITCHING Last administered on 06/14/18 11:19; Admin Dose 25 MG; Start 06/14/18 at 11:00 Hydralazine HCl (Apresoline) 25 mg Q6H PRN PO ELEVATED SYSTOLIC BP Last administered on 06/15/18 05:03; Admin Dose 25 MG; Start 06/15/18 at 05:00 Pregabalin (Lyrica) 100 mg BID PO Last administered on 06/16/18 08:43; Admin Dose 100 MG; Start 06/15/18 at 09:00 Hydromorphone HCl (Dilaudid) 1 mg Q3H PRN IV SEVERE PAIN LEVEL 7-10 Last administered on 06/16/18 03:59; Admin Dose 1 MG; Start 06/15/18 at 08:30 GARIMA RYDER MD Jun 16, 2018 12:20
[2018-06-16] MEDS ORDERED: LACTULOSE 30ML CUP PO ONE (12:30)
[2018-06-16] MEDS: L ACIDOPHIL/B LACTIS/B LONGUM CAPSULE PO SCH ×2 (12:38→20:31)
[2018-06-16] MEDS: DOCUSATE SODIUM 100 MG CAP PO SCH (12:38)
[2018-06-16] MEDS: SOD CHLORIDE 0.9% 1,000 ML IV SCH ×2 (14:41→23:43)
[2018-06-16] MEDS: RANITIDINE 150 MG TAB PO SCH (20:36)
[2018-06-17] VITALS (7 sets, daily range): BP systolic 142–163; BP diastolic 71–77; PULSE 64–79; RESP 18–19
[2018-06-17] MEDS: HYDROCODONE/APAP (10/325) TAB PO PRN ×2 (01:17→12:36)
[2018-06-17] MEDS: PANTOPRAZOLE (EC) 40 MG TAB PO SCH (05:49)
[2018-06-17] MEDS ORDERED: LEVOFLOXACIN 500 MG TAB PO SCH (06:00)
--- NOTE | 2018-06-17 07:53 | RADRPT ---
Echocardiogram Report Patient Name: GENI MUELLER Gender: Female Date: 1960 Study Date: 16-Jun-2018 Account Development Representative: Arden Black [facility] Location: 508-A Ref. Physician: MECHELLE JOSÉ Quality: Adequate Procedures: Transthoracic echocardiogram with complete 2D, M-Mode, and doppler examination. Indications: New heart murmur, sepsis. 2D/M Mode Doppler Measurement Value Normal Ranges Measurement Value Normal Ranges LVIDd 2D 3.9 3.5 - 5.6 cm MENDEL Vmax 2.6 cm2 LVIDs 2D 2.7 2.1 - 4.1 cm MENDEL VTI 2.7 cm2 FS 2D 30.5 % AV Mean Elton 1.7 m/sec LVPWd 2D 1.6 0.6 - 1.1 cm AV Mean PG 14.0 mmHg IVSd 2D 1.8 0.6 - 1.1 cm AV Peak Elton 2.4 m/sec IVS/LVPW 2D 1.1 AV Peak PG 24.0 mmHg AoR Diam 2D 2.7 2.0 - 3.7 cm AV VTI 48.7 cm LA/Ao 2D 1 0 - 1 LVOT Peak Elton 1.9 m/sec EDV 2D 61.2 cm3 LVOT Peak PG 14.0 mmHg ESV 2D 20.6 cm3 MV E Peak [place] 0.8 m/sec LA Dimen 2D 3.6 2.3 - 4.0 cm MV A Peak Elton 0.6 m/sec LVOT Area 3.5 cm2 MV E/A 1.4 MV Decel Time 187 msec MV E/A 1.4 TR Peak Elton 2.7 m/sec TR Peak PG 30.0 mmHg RVSP 33.0 mmHg Findings Left Ventricle: Normal left ventricular systolic function. Normal left ventricular cavity size. Moderate concentric left ventricular hypertrophy. Ejection fraction is visually estimated at 65 %. Tissue Doppler/Mitral Doppler indices are consistent with impaired relaxation (Stage I diastolic dysfunction). Right Ventricle: Normal right ventricular size. Normal right ventricular systolic function. Left Atrium: The left atrium is normal in size. Right Atrium: The right atrium is normal in size. Mitral Valve: Mild mitral annular calcification. Trace mitral regurgitation. Aortic Valve: Mild aortic stenosis. Aortic valve Max velocity 2.44 m/sec. Max PG 24.00 mmHg. Mean PG 14.00 mmHg. Aortic valve area 2.74 cm2. Aortic cusps appear mildly calcified. Trace aortic valve regurgitation. Tricuspid Valve: Normal appearance of the tricuspid valve. Right ventricular systolic pressure is consistent with mild pulmonary hypertension. Estimated peak PA systolic pressure 33 mmHg. There is mild tricuspid regurgitation. Pulmonic Valve: Pulmonic valve not well visualized. Pericardium: Normal pericardium with no significant pericardial effusion. Aorta: Normal aortic root. IVC: Normal size and normal respiratory collapse consistent with normal right atrial pressure. Conclusions Technically difficult study. Normal left ventricular systolic function. Normal left ventricular cavity size. Moderate concentric left ventricular hypertrophy. Ejection fraction is visually estimated at 65 %. Tissue Doppler/Mitral Doppler indices are consistent with impaired relaxation (Stage I diastolic dysfunction). Normal right ventricular size. Normal right ventricular systolic function. The left atrium is normal in size. Mild aortic stenosis. Aortic valve Max velocity 2.44 m/sec. Max PG 24.00 mmHg. Mean PG 14.00 mmHg. Aortic valve area 2.74 cm2. Aortic cusps appear mildly calcified. Trace aortic valve regurgitation. Normal appearance of the tricuspid valve. Right ventricular systolic pressure is consistent with mild pulmonary hypertension. Estimated peak PA systolic pressure 33 mmHg. There is mild tricuspid regurgitation. Normal aortic root. Normal pericardium with no significant pericardial effusion. Normal size and normal respiratory collapse consistent with normal right atrial pressure. No obvious vegetation, if high suspicion for endocarditis recommend LIVIA. Electronically Signed By: Joaquin Langford 17-Jun-2018 07:52:26 -0800 Patient Name: GENI MUELLER Study Date: 16-Jun-2018 [id number]
[2018-06-17] MEDS: L ACIDOPHIL/B LACTIS/B LONGUM CAPSULE PO SCH (08:34)
[2018-06-17] MEDS: TACROLIMUS 1 MG CAP PO SCH (08:34)
[2018-06-17] MEDS: DILTIAZEM (CD) 180 MG CAP PO SCH (08:35)
[2018-06-17] MEDS: DULOXETINE 30 MG CAP DR PO SCH (08:35)
[2018-06-17] MEDS: predniSONE 10 MG TAB PO SCH (08:36)
[2018-06-17] MEDS: MYCOPHENOLATE 250 MG CAP PO SCH (08:36)
[2018-06-17] MEDS: DOCUSATE SODIUM 100 MG CAP PO SCH (08:36)
[2018-06-17] MEDS: FOLIC ACID 1 MG TAB PO SCH (08:36)
[2018-06-17] MEDS: PREGABALIN 100 MG CAP PO SCH (08:38)
[2018-06-17] MEDS: HEPARIN 5,000 UNIT/1 ML VIAL SC SCH (08:45)
--- NOTE | 2018-06-17 09:57 | CONS ---
Date/Time of Note Date/Time of Note DATE: 06/17/18 TIME: 09:55 Assessment/Plan Assessment/Plan Hospital Course 1) UTI with bacteremia (e.coli) pt has improved, fevers with kidney involvement (with bacteremia this is usually the case) the fevers may take 5 days to resolve continue with levaquin, will change to po and continue it thru 06/25 06/17 - doing well, tolerating oral levaquin, continue it thru 06/25 ok for d/c to home from ID perspective 2) hx of c.dif unfortunately non 1st gen cephalosporins and quinolones have a higher risk for c.dif will start a probiotic for her but her e.coli is not sensitive to augmentin or keflex 06/17 - still no diarrhea, continue probiotic as outpt 3) renal Tx good renal function 4) SLE 5) thrombocytopenia this is not new to patient but it is improving with treatment 06/17 - this continues to improve Result Diagram: 06/17/18 0733 06/17/18 0733 Results 24hrs Laboratory Tests Test 06/17/18 07:33 White Blood Count 5.2 # Red Blood Count 3.40 L Hemoglobin 10.9 L Hematocrit 34.6 L Mean Corpuscular Volume 101.8 H Mean Corpuscular Hemoglobin 32.1 Mean Corpuscular Hemoglobin Concent 31.5 L Red Cell Distribution Width 12.9 Platelet Count 111 L Mean Platelet Volume 11.4 H Immature Granulocytes % 1.500 H Neutrophils % 72.7 Lymphocytes % 14.9 L Monocytes % 9.9 Eosinophils % 0.8 Basophils % 0.2 Nucleated Red Blood Cells % 0.0 Immature Granulocytes # 0.080 H Neutrophils # 3.8 Lymphocytes # 0.8 Monocytes # 0.5 Eosinophils # 0.0 Basophils # 0.0 Nucleated Red Blood Cells # 0.0 Sodium Level 141 Potassium Level 4.6 Chloride Level 111 H Carbon Dioxide Level 22 Anion Gap 8 Blood Urea Nitrogen 20 Creatinine 0.71 Est Glomerular Filtrat Rate mL/min > 60 Glucose Level 89 Calcium Level 9.4 Phosphorus Level 3.3 Magnesium Level 1.8 Consultation Date/Type/Reason Admit Date/Time Jun 12, 2018 at 23:21 Initial Consult Date 06/16/18 Type of Consult ID 24 HR Interval Summary Free Text/Dictation doing well pain over transplanted kidney is better no N, V, D no SOB no fevers Exam/Review of Systems Vital Signs Vitals Vital Signs Date Temp Pulse Resp B/P (MAP) Pulse Ox O2 O2 Flow FiO2 Time Delivery Rate 06/17/18 74 08:07 06/17/18 98.1 19 163/77 97 07:31 (105) 06/16/18 Nasal 2.0 22:00 Cannula Intake and Output 06/16/18 06/16/18 06/17/18 1515:00 23:00 07:00 IntakeIntake Total 100 ml 1200 ml OutputOutput Total 148 ml BalanceBalance -48 ml 1200 ml Exam Constitutional: alert, oriented Eyes: nl sclera ENMT: mucosa pink and moist Respiratory: clear to auscultation Cardiovascular: regular rate and rhythm Gastrointestinal: soft, non-tender Medications Medications Current Medications Sodium Chloride 1,000 ml @ 20 mls/hr Q24H IV Last administered on 06/16/18 23:43; Admin Dose 20 MLS/HR; Start 06/12/18 at 23:30 Acetaminophen (Tylenol Tab) 650 mg Q4 PRN PO FEVER Last administered on 06/13/18 05:42; Admin Dose 650 MG; Start 06/12/18 at 23:30 Prednisone (Prednisone) 10 mg DAILY PO Last administered on 06/17/18 08:36; Admin Dose 10 MG; Start 06/13/18 at 09:00 Acetaminophen/ Hydrocodone Bitart ([place] (10/325)) 1 tab BID PRN PO PAIN LEVEL 4-6 Last administered on 06/13/18 09:36; Admin Dose 1 TAB; Start 06/12/18 at 23:30 Duloxetine HCl (Cymbalta) 30 mg BID PO Last administered on 06/17/18 08:35; Admin Dose 30 MG; Start 06/13/18 at 09:00 Folic Acid (Folic Acid) 1 mg DAILY PO Last administered on 06/17/18 08:36; Admin Dose 1 MG; Start 06/13/18 at 09:00 Ranitidine HCl (Zantac) 300 mg HS PO Last administered on 06/16/18 20:36; Admin Dose 300 MG; Start 06/13/18 at 21:00 Acetaminophen/ Hydrocodone Bitart ([place] (10/325)) 2 tab QID PRN PO PAIN LEVEL 7-10 Last administered on 06/17/18 01:17; Admin Dose 2 TAB; Start 06/13/18 at 08:00 Tacrolimus (Prograf) 4 mg Q12 PO Last administered on 06/17/18 08:34; Admin Dose 4 MG; Start 06/13/18 at 09:00 Tramadol HCl (Ultram) 50 mg Q6H PRN PO PAIN LEVEL 1-3; Start 06/13/18 at 08:00 Diltiazem HCl (Cardizem Cd) 180 mg DAILY PO Last administered on 06/17/18 08:35; Admin Dose 180 MG; Start 06/13/18 at 09:00 Mycophenolate Mofetil (Cellcept) 500 mg Q12 PO Last administered on 06/17/18 08:36; Admin Dose 500 MG; Start 06/13/18 at 09:00 Pantoprazole (Protonix Tab) 40 mg BID@0600,1800 PO Last administered on 06/17/18 05:49; Admin Dose 40 MG; Start 06/13/18 at 09:00 Heparin Sodium (Porcine) (Heparin (5000 Units/1ml)) 5,000 unit BID SC Last administered on 06/17/18 08:45; Admin Dose 5,000 UNIT; Start 06/13/18 at 09:00 Diphenhydramine HCl (Benadryl) 25 mg TID PRN PO ITCHING Last administered on 06/14/18 11:19; Admin Dose 25 MG; Start 06/14/18 at 11:00 Hydralazine HCl (Apresoline) 25 mg Q6H PRN PO ELEVATED SYSTOLIC BP Last administered on 06/15/18 05:03; Admin Dose 25 MG; Start 06/15/18 at 05:00 Pregabalin (Lyrica) 100 mg BID PO Last administered on 06/17/18 08:38; Admin Dose 100 MG; Start 06/15/18 at 09:00 Hydromorphone HCl (Dilaudid) 1 mg Q3H PRN IV SEVERE PAIN LEVEL 7-10 Last admini stered on 06/16/18 03:59; Admin Dose 1 MG; Start 06/15/18 at 08:30 Levofloxacin (Levaquin) 500 mg DAILY@06 PO Last administered on 06/17/18 05:49; Admin Dose 500 MG; Start 06/17/18 at 06:00 Lactobacillus Acidophilus (Florajen3 Capsule) 1 each BID PO Last administered on 06/17/18at 08:34; Admin Dose 1 EACH; Start 06/16/18 at 12:30 Docusate Sodium (Colace) 200 mg DAILY PO Last administered on 06/17/18at 08:36; Admin Dose 200 MG; Start 06/16/18 at 12:30 GARIMA RYDER MD Jun 17, 2018 09:57
--- NOTE | 2018-06-17 13:48 | PDOCDIS ---
Discharge Instructions CONDITION [id number] Patient Condition: [id number] Stable HOME CARE INSTRUCTIONS: [id number] Diet Instructions: [id number] Reduced Sodium [id number] Special Diet: Ixayg8o REGULAR ACTIVITY: [id number] Activity Restrictions: [id number] No Restrictions FOLLOW UP/APPOINTMENTS Follow-up Plan Dr. Haney as instructed in 1-2 weeks LUZMARIA AVERY MD Jun 17, 2018 13:48
[2018-06-17] MEDS ORDERED: LEVO500T48 PO (13:53)
--- NOTE | 2018-07-06 09:13 | DS ---
Date/Time of Note Date/Time of Note DATE: 07/06/18 TIME: 09:10 Discharge Summary Admission/Discharge Info Admit Date/Time Jun 12, 2018 at 23:21 Discharge Date/Time Jun 17, 2018 at 15:52 Discharge Diagnosis Sepsis due to UTI in renal transplant patient Patient Condition: Stable Consults ID Renal Procedures None Hx of Present Illness 57yo F with kidney function with normal allograft function who was admitted for urosepsis. Hospital Course Pt was followed by ID and renal for immunosuppression medications. She received parental abx as guided by ID and was transitioned to PO regimen at time of discharge. A renal US of renal tx was normal and CT A/P was without diverticular disease/abscess (pt had chronic LLQ pain complaint). She was discharged home in hemodynamically stable condition. Home Meds Active Scripts Levofloxacin* (Levaquin*) 500 Mg Tablet, 500 MG PO DAILY@06 for 8 Days, #8 TAB Prov:LUZMARIA AVERY MD 06/17/18 Tramadol HCl (Tramadol HCl) 50 Mg Tablet, 50 MG PO Q6 PRN for PAIN, #20 TAB Prov:YFN MONTALVO MD 07/06/16 Reported Medications Mycophenolate Mofetil* (Cellcept*) 200 Mg/Ml Susp.recon, 500 MG PO Q12, ML TAKE 2 TABLETS BY MOUTH TWICE DAILY 06/12/18 Tacrolimus* (Tacrolimus*) 1 Mg Capsule, 4 MG PO Q12, CAP 06/12/18 Diltiazem HCl (Diltiazem ER) 180 Mg Tab.er.24h, 180 MG PO QAM, #30 CAP 06/12/18 Ergocalciferol (Vitamin D2) (VITAMIN D2) 2,000 Unit Tablet, 2000 UNIT PO DAILY, TAB 06/12/18 Pregabalin* (Lyrica*) 100 Mg Capsule, 100 MG PO DAILY, CAP 06/12/18 Prednisone* (Prednisone*) 10 Mg Tab, 10 MG PO DAILY, TAB 06/12/18 Ranitidine Hcl* (Ranitidine Hcl*) 300 Mg Tablet, 300 MG PO HS, #30 TAB 07/06/16 Folic Acid* (Folic Acid*) 1 Mg Tablet, 1 MG PO DAILY, TAB 07/06/16 Duloxetine Hcl* (Duloxetine Hcl*) 30 Mg Capsule.dr, 30 MG PO BID, #30 CAP 07/06/16 Omeprazole* (Omeprazole*) 20 Mg Capsule.dr, 20 MG PO BID, #60 CAP 07/06/16 Hydrocodone/Acetaminophen ([place] 10-325 Tablet) 1 Each Tablet, 2 TAB PO QID PRN for PAIN, TAB 07/06/16 Follow-up Plan Dr. Haney as instructed in 1-2 weeks Primary Care Provider Michael Bearden MD Time spent on discharge: < 30 minutes LUZMARIA AVERY MD Jul 06, 2018 09:13
== END 2018-06-17 15:52 | disposition home or self-care (01) | DRG 872 ==
LOC: E/R 21:13 → TEL 23:21
PROVIDERS: ADMIT Internal Medicine; ATTEND Internal Medicine
DX: A41.9 Sepsis, unspecified organism (principal); N39.0 Urinary tract infection, site not specified; Z94.0 Kidney transplant status; B96.20 Unspecified Escherichia coli [E. coli] as the cause of diseases classified elsewhere; D69.6 Thrombocytopenia, unspecified; K57.90 Diverticulosis of intestine, part unspecified, without perforation or abscess without bleeding; M32.9 Systemic lupus erythematosus, unspecified; Z87.891 Personal history of nicotine dependence
CPT/HCPCS: 36415; 71045; 74176; 76775; 80048; 80053; 81001; 83605; 83735; 84100; 84484; 85025; 85610; 85730; 87040; 87086; 87400; 93005; 93306; 96374; 97116; 97161; 97530; J0692; J1170; J1644; J1956; J3370; J3475; J7030; J7040; J7050; J7507; J7512; J7517